=== PATIENT | male | born 1940 | race Caucasian/White ===

== ENCOUNTER → 2017-02-26 | Outpatient (CLI) | payer OTHER ==
[~2017-02-26] MED LIST: ASPIPOW PO; FERR325T5 PO; HYDR25TA4 PO; NUTR-1197 PO; PANT1TAB48 PO
== END | disposition home or self-care (01) ==
LOC: C.LABSPEC 13:59
PROVIDERS: ATTEND Hospitalist
DX: C18.9 Malignant neoplasm of colon, unspecified (principal)

== ENCOUNTER → 2017-11-03 | Outpatient (CLI) | payer OTHER ==
[~2017-11-03] MED LIST changes: +PANT1TAB3 PO; -PANT1TAB48 PO
--- NOTE | 2017-11-04 07:59 | DIAGNOSTIC IMAGING REPORT ---
PET/CT CLINICAL HISTORY: COLORECTAL CANCER TECHNIQUE: A PET/CT was performed from the skull base through the upper thighs following intravenous injection of 12.69 mCi of F 18 FDG IV. The injection was performed at 10:43 AM on November 03, 2017 and imaging began at 12:21 PM on November 03, 2017. Unenhanced CT was performed for attenuation correction purposes and anatomic localization. COMPARISON STUDY: PET/CT March 05, 2017. FINDINGS: Head and neck: No abnormal FDG uptake is identified within the neck. There is no cervical lymphadenopathy. Chest: There is no thoracic lymphadenopathy. A 2.6 cm lesion within the superior segment of the right lower lobe shown on image 88 has slightly increased in size since PET/CT of March 05, 2017. FDG uptake has increased with an SUV max of 3. This is predominantly groundglass with suspected solid component although is difficult to assess given respiratory motion artifact. A few small nodules within the posterior segment of the right upper lobe measuring up to 7 mm are unchanged. These remain indeterminate. There are no new pulmonary nodules. Dilatation of the ascending aorta, measuring 4.6 cm is unchanged. Abdomen and Pelvis: A bowel containing right lower quadrant hernia is noted. Note is again made of an FDG avid nodule within the superior aspect of the hernia that measures 2.6 x 1.9 cm. It previously measured approximately 2.7 x 2 cm on exam of March 05, 2017. The SUV max is now 8.2. It previously measured 15.8. An FDG avid mass posterior to the left aspect of the bladder shown on axial image 219 measures 3.9 x 2.7 cm. It previously measured 3.9 x 2.6 cm. The SUV max is now 20. It previously measured 19. A third lesion measuring 3.5 x 3.1 cm located posterior to the right upper aspect of the bladder is noted. It previously measured 3.5 x 3.4 cm. The SUV max of this lesion is 15.3. It previously measured 22.2. No new lesions are identified on this exam. Prostate is moderately enlarged. A left adrenal adenoma is again noted. There is sigmoid diverticulosis without evidence for acute diverticulitis. Musculoskeletal: No suspicious skeletal uptake is identified. IMPRESSION: 1. Three lower abdominal and pelvic FDG avid masses which were shown on PET/CT of March 05, 2017. The findings suggest a mild partial treatment response with persistent but decreased FDG uptake within 2 of the lesions and no change in marked FDG uptake within a third lesion. No significant change in size. These favor peritoneal implants given the history of colon cancer. 2. Slight increase in size and FDG avidity of a groundglass and solid lesion within the superior segment of the right lower lobe. This favors a primary lung malignancy, likely within the adenocarcinoma spectrum. Metastatic disease could appear similar although is considered less likely. 3. No change in a few small nodules within the posterior segment of the right upper lobe which remain indeterminate. Electronically signed by: Roverto Rodriguez M.D. 11/04/2017 7:58 AM Dictated Date/Time: 11/04/2017 7:10 AM
== END | disposition home or self-care (01) ==
LOC: C.PET 10:12
PROVIDERS: ATTEND Colon & Rectal Surgery
DX: C18.9 Malignant neoplasm of colon, unspecified (principal)

== ENCOUNTER 2020-03-06 12:57 | Inpatient (IN) ==
[2020-03-06] MEDS ORDERED: MAGNESIUM SULFATE 1GM / D5W BAG IV ONE (13:56)
[2020-03-06] MEDS ORDERED: LACTATED RINGER'S 1,000 ML IV ONE ×3 (14:01→15:58)
[2020-03-06] MEDS ORDERED: MAGNESIUM SULFATE / D5W 1 GM/100 ML BAG IV STA (14:03)
[2020-03-06 14:09] LABS: Hematocrit (blood only) 24.3 % (42-52); Hemoglobin 8.1 g/dL (14.0-18.0); Mean Corpuscular Hemoglobin 28.4 pg (25-34); Mean Corpuscular Hgb Conc 33.3 g/dL (32-36); Mean Corpuscular Volume 85.3 fL (80-100); Mean Platelet Volume 9.8 fL (7.4-10.4); Platelet Count 266 K/uL (130-400); RDW Coefficient of Variation 17.2 % (11.5-14.5); RDW Standard Deviation 53.1 fL (36.4-46.3); Red Blood Count 2.85 M/uL (4.7-6.1); White Blood Count 21.22 K/uL (4.8-10.8)
[2020-03-06] MEDS ORDERED: MAGNESIUM SULFATE / D5W 1 GM/100 ML BAG IV SCH (14:09)
--- NOTE | 2020-03-06 14:18 | XRay Report ---
XR chest 1V portable HISTORY: 80 years-old Male weakness, afib acute weakness with atrial fibrillation COMPARISON: Chest radiograph 12/02/2013 TECHNIQUE: Portable upright AP view of the chest FINDINGS: Cardiac silhouette is mildly enlarged. Mild chronic interstitial coarsening. Right pectoral Infuse-a- Port catheter distal tip terminates in the superior aspect of the right atrium. No pneumothorax, pleu ral effusion, overt pulmonary edema or airspace consolidation typical for pneumonia. Degenerative wicho nges of the shoulders and spine. IMPRESSION: Cardiomegaly without acute process. ACT 112: Negative or not required by law. The above report was generated using voice recognition software. It may contain grammatical, syntax o r spelling errors. Electronically signed by: Norbert Huddleston M.D. 03/06/2020 2:16 PM
[2020-03-06 14:20] LABS: INR 1.2 (0.9-1.1); Prothrombin Time 12.3 Seconds (9.0-12.0)
[2020-03-06] MEDS ORDERED: CEFEPIME 2,000 MG/20 ML VIAL IV STA (14:23)
[2020-03-06 14:33] LABS: Basophils # (auto) 0.01 K/uL (0-0.2); Immature Granulocytes # (auto) 0.09 K/uL (0.00-0.02); Immature Granulocytes % (auto) 0.4 %; Lymphocytes # (auto) 0.34 K/uL (1.2-3.4); Lymphocytes % (auto) 1.6 %; Monocytes # (auto) 0.56 K/uL (0.11-0.59); Monocytes % (auto) 2.6 %; Neutrophils # (auto) 20.22 K/uL (1.4-6.5); Neutrophils % (auto) 95.4 %
--- NOTE | 2020-03-06 14:35 | CT Scan Report ---
CT head/brain wo con CT DOSE: 614.27 mGy.cm HISTORY: Mental status change weakness TECHNIQUE: Multiaxial CT images of the head were performed without the use of intravenous contrast. A dose lowering technique was utilized adhering to the principles of ALARA. Comparison: 10/09/2013 Findings: The paranasal sinuses and mastoid air cells are clear. The calvarium and skull base are int act. The ventricles and sulci are within normal limits. There is no mass, hematoma, midline shift, or acute infarct. Impression: No acute intracranial abnormality. ACT 112: Negative or not required by law. The above report was generated using voice recognition software. It may contain grammatical, syntax or spelling errors. Electronically signed by: Vince Xiong M.D. 03/06/2020 2:34 PM
[2020-03-06 14:39] LABS: Alanine Aminotransferase 31 U/L (12-78); Albumin Globulin Ratio 0.4 (0.9-2); Albumin Level 1.9 gm/dl (3.4-5.0); Alkaline Phosphatase 203 U/L (45-117); Aspartate Aminotransferase 36 U/L (15-37); BUN Creatinine Ratio 35.5 (10-20); Bilirubin,Total 0.4 mg/dl (0.2-1); Blood Urea Nitrogen 96 mg/dl (7-18); Calcium 8.1 mg/dl (8.5-10.1); Carbon Dioxide 24 mmol/L (21-32); Chloride 99 mmol/L (98-107); Est GFR (African American) 24.4; Est GFR (Non-African American) 21.1; Globulin 4.7 gm/dl (2.5-4.0); Glucose 167 mg/dl (70-99); Potassium 2.5 mmol/L (3.5-5.1); Sodium 135 mmol/L (136-145); Thyroid Stimulating Hormone 0.957 uIu/ml (0.300-4.500); Total Protein 6.6 gm/dl (6.4-8.2); Troponin I 0.044 ng/ml (0-0.045)
[2020-03-06] MEDS ORDERED: POTASSIUM CHLORIDE / WTR 20 MEQ/100 ML PLCT IV ONE ×2 (14:41→16:35)
--- NOTE | 2020-03-06 14:58 | Emergency Department Note ---
Impression & Plan Severe sepsis, BRYAN (acute kidney injury), Hypokalemia, Atrial fibrillation with RVR, Acute UTI, Acute urinary retention ED Provider Note Provider: Berry Benitez MD DATE OF SERVICE: 03/06/2020 CHIEF COMPLAINT: Weakness HISTORY OF PRESENT ILLNESS: Patient is a 80-year-old gentleman with a past medical history of metastatic colon cancer, prediabetes, hypertension presenting today from home via ambulance. Evidently the patient's been not doing well since last radiation treatment in November and has had some decreased intake. Some shivers and extreme weakness unable to get a bed today and they called her doctor. Called 911 and brought here. Patient upon evaluation is noted to be in rapid atrial fibrillation. Denies loss of conscious but sick for the last day or 2 has had severe shivers. Denies significant pain at this time. Denies shortness of breath. Patient's blood pressure is somewhat low on initial evaluation the patient states if he sits up he feels weak and lightheaded. No falls reported. Denies vomiting at this time. The notes from the [employer] system indicate question of seizure activity although patient states this is more of shivers from his recollection. REVIEW OF SYSTEMS: A total of 10 review of systems was obtained and negative except as stated above in the HPI. 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 NECK: Trachea midline. Supple. ENT: Mucous membranes pink and moist. LUNGS: Airway patent. No retractions. Breath sounds clear HEART: Irregular tachycardic rate and rhythm. No chest wall tenderness with a right upper chest wall port in place ABDOMEN: Soft and non-tender, without guarding or rebound there is some right sided abdominal hernia appreciated without tenderness SKIN: Acyanotic, warm, dry, without rashes EXTREMITIES: Without significant swelling of the lower extremities or acute deformity. NEUROLOGICAL: No focal deficits. No aphasia. No facial droop or slurred speech. EKs beats per minute atrial fibrillation with rapid ventricular spots. No acute ST segment elevation or significant depressions appreciated. Normal axis. CONTINUOUS CARDIAC MONITORING: was ordered and showed a heart rate of 120-140s bpm in atrial fibrillation Patient's laboratory studies and imaging reviewed. Differential includes Infection, dehydration, metabolic abnormality, hypo/hyperglycemia, electrolyte disturbance, anemia, hypoxia, cardiac sources, intracerebral event, toxicologic, neurologic, as well as other pathologies. IMPRESSION/MEDICAL DECISION MAKING: Patient presents complaint of weakness. Called the room due to hypotension and rapid A. fib. Fluid bolus given as well as magnesium. Hypokalemia noted on laboratory studies and give additional through his port site. Given cefepime here with leukocytosis and concerns for sepsis. No fever history reported. No trauma reported. Evidence of shaking today and several weeks ago seems less likely be seizure but given initially unclear history of CT head was completed. CT abdomen pelvis completed significant abdominal history history of colon cancer is unclear etiology of infection. Lower suspicion is acutely relents coronavirus at this time and he does not have significant respiratory symptoms. Patient denies significant symptoms other than some weakness when trying to move and thus did not elect to give an unknown period of atrial fibrillation for emergent electrical cardioversion initially. Lactate is elevated as well as procalcitonin. Blood cultures have been obtained. additionally relays a history of C. difficile colitis given this and his history of intra-abdominal processes given some IV Flagyl here. Lower suspicion for acute C. difficile infection at this time. Patient does not appear meningitic. Urinalysis is ordered and highly concerning for infection. CT abdomen pelvis shows evidence of hydronephrosis and concern for urinary retention, Fernandes was placed. Blood pressure has been improving with some IV fluids here. Again did receive IV potassium replacement. Considered esmolol for some rate control but given recurrent issues with borderline blood pressures this was held. Urinalysis appears positive. Again did receive broad coverage cefepime and Flagyl at this point. Defer additional antibiotics to the inpa tient team. CT the abdomen pelvis showed some retained stool in the colon but does not have symptomatology consistent with an obstructive process. Has had some recurrent diarrhea. Discussed with family also findings of possible some liver metastatic disease. Given his critical nature discussed with the hospitalist team for further inpatient care. Patient again while having borderline blood pressures do not feel this time required electrical cardioversion and was resting comfortably in bed. DIAGNOSIS: Weakness, atrial fibrillation rapid ventricular response, sepsis, urinary retention, acute kidney injury, hypokalemia, acute UTI DISPOSITION: Hospitalist will evaluate Critical Care I have personally spent 75 minutes of critical care time in the direct managem ent of this patient. This includes bedside care, interpretation of diagnostic studies, and testing, discussion with consultants, patient, and family members, and other required patient management activities. These 75 minutes is in excess of all separately billable procedures. Past Med/Surg History Medical History Colon cancer HTN (hypertension) Radiation proctitis Surgical History History of appendectomy (Resolved) History of colon resection History of tonsillectomy and adenoidectomy Ileostomy status history of ileostomy s/p reversal Family History Other Family history non-contributory Social History Smoking Status: Never smoker Hx Alcohol Use: No Feels Safe at Home: Yes Allergies Allergies Allergy/AdvReac Type Severity Reaction Status Date / Time ragweed pollen Allergy Intermediate SNEEZING Unverified 03/06/20 14:45 plum Allergy Mild VERTIGO Verified 03/06/20 14:45 (RED PLUMS) amoxicillin Allergy Unknown HEADACHES, Unverified 03/06/20 14:45 FEELS LIGHT HEADED soy Allergy Unknown RASH Unverified 03/06/20 14:45 epinephrine AdvReac Unknown "DROPS BP Verified 03/06/20 14:45 LIKE A ROCK" Food Additives Allergy Unknown Nitrites - Uncoded 03/06/20 14:45 cardiac arrhythmias Pesticides Allergy Unknown RASH Uncoded 03/06/20 14:45 Home Meds Home Medications Medication Instructions Recorded Confirmed calcium carbonate 600 mg PO BID 03/06/20 03/06/20 hydrochlorothiazide 25 mg PO DAILY 03/06/20 03/06/20 potassium chloride [Klor-Con M20] 20 meq PO BID 03/06/20 03/06/20 Results & Data (ED) Vital Signs Vital Signs - 24 hr 03/06/20 13:49 03/06/20 13:51 03/06/20 13:52 Temperature Temperature Source Pulse Rate 153 H 150 H Pulse Rate from SpO2 Sensor 160 H 139 H 151 H Pulse Rhythm Respiratory Rate 14 Respiratory Effort / Characteristics Respiratory Pattern Blood Pressure 77/62 L 62/37 L 91/75 L Blood Pressure Mean 65 39 78 Pulse Oximetry 96 98 98 Oxygen Delivery Method Sepsis Recent Fever Within 48 Hours Sepsis New/Unexplained Change in Mental Status Sepsis Action Taken by Nursing 03/06/20 13:54 03/06/20 13:55 03/06/20 13:58 Temperature Temperature Source Pulse Rate 153 H 142 H 163 H Pulse Rate from SpO2 Sensor 157 H 145 H 161 H Pulse Rhythm Respiratory Rate 22 21 20 Respiratory Effort / Characteristics Respiratory Pattern Blood Pressure 118/98 86/61 L 96/61 L Blood Pressure Mean 105 69 77 Pulse Oximetry 97 96 96 Oxygen Delivery Method Sepsis Recent Fever Within 48 Hours Sepsis New/Unexplained Change in Mental Status Sepsis Action Taken by Nursing 03/06/20 14:00 03/06/20 14:05 03/06/20 14:10 Temperature 37.4 C Temperature Source Oral Pulse Rate 155 H 149 H 149 H Pulse Rate from SpO2 Sensor Pulse Rhythm Irregular Respiratory Rate 14 18 12 Respiratory Effort / Characteristics Spontaneous Respiratory Pattern Regular Blood Pressure 97/76 L 88/68 L 93/64 L Blood Pressure Mean 91 76 70 Pulse Oximetry 96 96 95 Oxygen Delivery Method Room Air Sepsis Recent Fever Within 48 Hours No Sepsis New/Unexplained Change in Mental Status No Sepsis Action Taken by Nursing No Action Required 03/06/20 14:15 03/06/20 14:20 03/06/20 14:39 Temperature Temperature Source Pulse Rate 150 H 160 H 160 H Pulse Rate from SpO2 Sensor 134 H Pulse Rhythm Respiratory Rate 20 20 Respiratory Effort / Characteristics Respiratory Pattern Blood Pressure 83/58 L 86/60 L 113/68 Blood Pressure Mean 61 65 69 Pulse Oximetry 96 98 95 Oxygen Delivery Method Sepsis Recent Fever Within 48 Hours Sepsis New/Unexplained Change in Mental Status Sepsis Action Taken by Nursing 03/06/20 14:40 03/06/20 14:45 03/06/20 14:50 Temperature Temperature Source Pulse Rate 149 H 152 H 136 H Pulse Rate from SpO2 Sensor 148 H 144 H 150 H Pulse Rhythm Respiratory Rate 20 20 Respiratory Effort / Characteristics Respiratory Pattern Blood Pressure 104/72 92/64 L 74/45 L Blood Pressure Mean 84 66 52 Pulse Oximetry 96 96 95 Oxygen Delivery Method Sepsis Recent Fever Within 48 Hours Sepsis New/Unexplained Change in Mental Status Sepsis Action Taken by Nursing 03/06/20 14:55 03/06/20 15:00 03/06/20 15:05 Temperature Temperature Source Pulse Rate 149 H 138 H 137 H Pulse Rate from SpO2 Sensor 149 H 128 H 146 H Pulse Rhythm Respiratory Rate 15 16 17 Respiratory Effort / Characteristics Respiratory Pattern Blood Pressure 96/71 L 94/68 L 93/71 L Blood Pressure Mean 81 77 81 Pulse Oximetry 96 95 95 Oxygen Delivery Method Sepsis Recent Fever Within 48 Hours Sepsis New/Unexplained Change in Mental Status Sepsis Action Taken by Nursing 03/06/20 15:21 03/06/20 15:26 03/06/20 15:30 Temperature Temperature Source Pulse Rate 140 H 162 H 140 H Pulse Rate from SpO2 Sensor Pulse Rhythm Respiratory Rate 13 17 15 Respiratory Effort / Characteristics Respiratory Pattern Blood Pressure 92/69 L 84/68 L 89/73 L Blood Pressure Mean 75 75 77 Pulse Oximetry 97 96 96 Oxygen Delivery Method Sepsis Recent Fever Within 48 Hours Sepsis New/Unexplained Change in Mental Status Sepsis Action Taken by Nursing 03/06/20 15:35 03/06/20 15:40 03/06/20 15:45 Temperature Temperature Source Pulse Rate 142 H 134 H 124 H Pulse Rate from SpO2 Sensor Pulse Rhythm Respiratory Rate 21 12 15 Respiratory Effort / Characteristics Respiratory Pattern Blood Pressure 85/67 L 103/69 68/52 L Blood Pressure Mean 79 77 59 Pulse Oximetry 98 97 97 Oxygen Delivery Method Sepsis Recent Fever Within 48 Hours Sepsis New/Unexplained Change in Mental Status Sepsis Action Taken by Nursing 03/06/20 15:47 03/06/20 16:03 03/06/20 16:13 Temperature Temperature Source Pulse Rate 137 H 132 H 133 H Pulse Rate from SpO2 Sensor Pulse Rhythm Respiratory Rate 16 14 18 Respiratory Effort / Characteristics Respiratory Pattern Blood Pressure 76/63 L 72/60 L 89/70 L Blood Pressure Mean 68 68 77 Pulse Oximetry 97 98 97 Oxygen Delivery Method Sepsis Recent Fever Within 48 Hours Sepsis New/Unexplained Change in Mental Status Sepsis Action Taken by Nursing 03/06/20 16:19 03/06/20 16:20 03/06/20 16:30 Temperature Temperature Source Pulse Rate 135 H 130 H 140 H Pulse Rate from SpO2 Sensor Pulse Rhythm Respiratory Rate 12 14 12 Respiratory Effort / Characteristics Respiratory Pattern Blood Pressure 96/64 L 94/72 L 88/68 L Blood Pressure Mean 65 79 73 Pulse Oximetry 97 98 97 Oxygen Delivery Method Sepsis Recent Fever Within 48 Hours Sepsis New/Unexplained Change in Mental Status Sepsis Action Taken by Nursing 03/06/20 16:40 03/06/20 16:50 03/06/20 17:00 Temperature Temperature Source Pulse Rate 142 H 128 H 141 H Pulse Rate from SpO2 Sensor Pulse Rhythm Respiratory Rate 12 15 16 Respiratory Effort / Characteristics Respiratory Pattern Blood Pressure 89/70 L 97/69 L 91/74 L Blood Pressure Mean 73 79 79 Pulse Oximetry 97 98 Oxygen Delivery Method Sepsis Recent Fever Within 48 Hours Sepsis New/Unexplained Change in Mental Status Sepsis Action Taken by Nursing 03/06/20 17:10 03/06/20 17:20 03/06/20 17:23 Temperature Temperature Source Pulse Rate 139 H 132 H 142 H Pulse Rate from SpO2 Sensor Pulse Rhythm Respiratory Rate 20 20 20 Respiratory Effort / Characteristics Respiratory Pattern Blood Pressure 89/70 L 97/75 L 97/75 L Blood Pressure Mean 79 89 89 Pulse Oximetry Oxygen Delivery Method Sepsis Recent Fever Within 48 Hours Sepsis New/Unexplained Change in Mental Status Sepsis Action Taken by Nursing 03/06/20 17:30 03/06/20 17:40 Temperature Temperature Source Pulse Rate 138 H 138 H Pulse Rate from SpO2 Sensor Pulse Rhythm Respiratory Rate 12 18 Respiratory Effort / Characteristics Respiratory Pattern Blood Pressure 106/63 101/77 Blood Pressure Mean 74 85 Pulse Oximetry Oxygen Delivery Method Sepsis Recent Fever Within 48 Hours Sepsis New/Unexplained Change in Mental Status Sepsis Action Taken by Nursing Laboratory Data Result diagrams: 03/06/20 13:50 03/06/20 17:36 Lab Results 03/06/20 03/06/20 03/06/20 Range/Units 13:50 13:50 13:50 WBC 21.22 H (4.8-10.8) K/uL RBC 2.85 L (4.7-6.1) M/uL Hgb 8.1 L (14.0-18.0) g/dL Hct 24.3 L (42-52) % MCV 85.3 (80-100) fL MCH 28.4 (25-34) pg MCHC 33.3 (32-36) g/dL RDW Std Deviation 53.1 H (36.4-46.3) fL RDW Coeff of Shanita 17.2 H (11.5-14.5) % Plt Count 266 (130-400) K/uL MPV 9.8 (7.4-10.4) fL Immature Gran % (Auto) 0.4 % Neut % (Auto) 95.4 % Lymph % (Auto) 1.6 % [place] % (Auto) 2.6 % Eos % (Auto) 0.0 % Baso % (Auto) 0.0 % Neut # (Auto) 20.22 H (1.4-6.5) K/uL Lymph # (Auto) 0.34 L (1.2-3.4) K/uL [place] # (Auto) 0.56 (0.11-0.59) K/uL Eos # (Auto) 0.00 (0-0.5) K/uL Baso # (Auto) 0.01 (0-0.2) K/uL Immature Gran # (Auto) 0.09 H (0.00-0.02) K/uL PT 12.3 H (9.0-12.0) Seconds INR 1.2 H (0.9-1.1) Sodium 135 L (136-145) mmol/L Potassium 2.5 L* (3.5-5.1) mmol/L Chloride 99 (98-107) mmol/L Carbon Dioxide 24 (21-32) mmol/L Anion Gap 11.0 (3-11) BUN 96 H (7-18) mg/dl Creatinine 2.71 H (0.6-1.4) mg/dl Est Cr Clr Drug Dosing Not Reportable Est GFR ( Amer) 24.4 Est GFR (Non-Af Amer) 21.1 BUN/Creatinine Ratio 35.5 H (10-20) Glucose 167 H (70-99) mg/dl Lactate (0.4-2.0) mmol/L Calcium 8.1 L (8.5-10.1) mg/dl Magnesium 2.0 (1.8-2.4) mg/dl Total Bilirubin 0.4 (0.2-1) mg/dl AST 36 (15-37) U/L ALT 31 (12-78) U/L Alkaline Phosphatase 203 H (45-117) U/L Troponin I 0.044 (0-0.045) ng/ml Total Protein 6.6 (6.4-8.2) gm/dl Albumin 1.9 L (3.4-5.0) gm/dl Globulin 4.7 H (2.5-4.0) gm/dl Albumin/Globulin Ratio 0.4 L (0.9-2) Procalcitonin (0-0.5) ng/ml TSH 0.957 (0.300-4.500) uIu/ml Urine Color Urine Appearance (Clear) Urine pH (4.5-7.5) Ur Specific Callahan (1.000-1.030) Urine Protein (Negative) Urine Glucose (UA) (Negative) Urine Ketones (Negative) Urine Blood (Negative) Urine Nitrite (Negative) Urine Bilirubin (Negative) Urine Urobilinogen (Negative) Ur Leukocyte Esterase (Negative) Urine WBC (Auto) (0-5) /hpf Urine RBC (Auto) (0-4) /hpf U Hyaline Cast (Auto) (0-5) /lpf U Epithel Cells (Auto) (0-5) /lpf Urine Bacteria (Auto) (Negative) 03/06/20 03/06/20 03/06/20 Range/Units 13:50 14:06 15:35 WBC (4.8-10.8) K/uL RBC (4.7-6.1) M/uL Hgb (14.0-18.0) g/dL Hct (42-52) % MCV (80-100) fL MCH (25-34) pg MCHC (32-36) g/dL RDW Std Deviation (36.4-46.3) fL RDW Coeff of Shanita (11.5-14.5) % Plt Count (130-400) K/uL MPV (7.4-10.4) fL Immature Gran % (Auto) % Neut % (Auto) % Lymph % (Auto) % [place] % (Auto) % Eos % (Auto) % Baso % (Auto) % Neut # (Auto) (1.4-6.5) K/uL Lymph # (Auto) (1.2-3.4) K/uL [place] # (Auto) (0.11-0.59) K/uL Eos # (Auto) (0-0.5) K/uL Baso # (Auto) (0-0.2) K/uL Immature Gran # (Auto) (0.00-0.02) K/uL PT (9.0-12.0) Seconds INR (0.9-1.1) Sodium (136-145) mmol/L Potassium (3.5-5.1) mmol/L Chloride (98-107) mmol/L Carbon Dioxide (21-32) mmol/L Anion Gap (3-11) BUN (7-18) mg/dl Creatinine (0.6-1.4) mg/dl Est Cr Clr Drug Dosing Est GFR ( Amer) Est GFR (Non-Af Amer) BUN/Creatinine Ratio (10-20) Glucose (70-99) mg/dl Lactate 4.8 H* (0.4-2.0) mmol/L Calcium (8.5-10.1) mg/dl Magnesium (1.8-2.4) mg/dl Total Bilirubin (0.2-1) mg/dl AST (15-37) U/L ALT (12-78) U/L Alkaline Phosphatase (45-117) U/L Troponin I (0-0.045) ng/ml Total Protein (6.4-8.2) gm/dl Albumin (3.4-5.0) gm/dl Globulin (2.5-4.0) gm/dl Albumin/Globulin Ratio (0.9-2) Procalcitonin 31.57 H (0-0.5) ng/ml TSH (0.300-4.500) uIu/ml Urine Color Yellow Urine Appearance Cloudy A (Clear) Urine pH 5.0 (4.5-7.5) Ur Specific [place] 1.015 (1.000-1.030) Urine Protein Trace H (Negative) Urine Glucose (UA) Negative (Negative) Urine Ketones Negative (Negative) Urine Blood 1+ H (Negative) Urine Nitrite Negative (Negative) Urine Bilirubin Negative (Negative) Urine Urobilinogen Negative (Negative) Ur Leukocyte Esterase 3+ H (Negative) Urine WBC (Auto) >30 H (0-5) /hpf Urine RBC (Auto) 0-4 (0-4) /hpf U Hyaline Cast (Auto) 0 (0-5) /lpf U Epithel Cells (Auto) 0-5 (0-5) /lpf Urine Bacteria (Auto) 1+ H (Negative) 03/06/20 03/06/20 Range/Units 17:10 17:36 WBC (4.8-10.8) K/uL RBC (4.7-6.1) M/uL Hgb (14.0-18.0) g/dL Hct (42-52) % MCV (80-100) fL MCH (25-34) pg MCHC (32-36) g/dL RDW Std Deviation (36.4-46.3) fL RDW Coeff of Shanita (11.5-14.5) % Plt Count (130-400) K/uL MPV (7.4-10.4) fL Immature Gran % (Auto) % Neut % (Auto) % Lymph % (Auto) % [place] % (Auto) % Eos % (Auto) % Baso % (Auto) % Neut # (Auto) (1.4-6.5) K/uL Lymph # (Auto) (1.2-3.4) K/uL [place] # (Auto) (0.11-0.59) K/uL Eos # (Auto) (0-0.5) K/uL Baso # (Auto) (0-0.2) K/uL Immature Gran # (Auto) (0.00-0.02) K/uL PT (9.0-12.0) Seconds INR (0.9-1.1) Sodium (136-145) mmol/L Potassium 2.9 L D (3.5-5.1) mmol/L Chloride (98-107) mmol/L Carbon Dioxide (21-32) mmol/L Anion Gap (3-11) BUN (7-18) mg/dl Creatinine (0.6-1.4) mg/dl Est Cr Clr Drug Dosing Est GFR ( Amer) Est GFR (Non-Af Amer) BUN/Creatinine Ratio (10-20) Glucose (70-99) mg/dl Lactate 2.4 H* (0.4-2.0) mmol/L Calcium (8.5-10.1) mg/dl Magnesium (1.8-2.4) mg/dl Total Bilirubin (0.2-1) mg/dl AST (15-37) U/L ALT (12-78) U/L Alkaline Phosphatase (45-117) U/L Troponin I (0-0.045) ng/ml Total Protein (6.4-8.2) gm/dl Albumin (3.4-5.0) gm/dl Globulin (2.5-4.0) gm/dl Albumin/Globulin Ratio (0.9-2) Procalcitonin (0-0.5) ng/ml TSH (0.300-4.500) uIu/ml Urine Color Urine Appearance (Clear) Urine pH (4.5-7.5) Ur Specific [place] (1.000-1.030) Urine Protein (Negative) Urine Glucose (UA) (Negative) Urine Ketones (Negative) Urine Blood (Negative) Urine Nitrite (Negative) Urine Bilirubin (Negative) Urine Urobilinogen (Negative) Ur Leukocyte Esterase (Negative) Urine WBC (Auto) (0-5) /hpf Urine RBC (Auto) (0-4) /hpf U Hyaline Cast (Auto) (0-5) /lpf U Epithel Cells (Auto) (0-5) /lpf Urine Bacteria (Auto) (Negative) Administered Medications Esmolol HCl (Brevibloc) 2,500 mg in 250 mls @ 29.4 mls/hr IV .Q8H31M [facility]; Protocol Stop: 04/05/20 15:59 Last Admin: 03/06/20 17:12 Dose: Not Given Documented by: [id number] Discontinued Medications Esmolol HCl (Brevibloc Bolus From Bag) 49 mg IV ONE ONE Stop: 03/06/20 15:56 Last Admin: 03/06/20 17:11 Dose: Not Given Documented by: [id number] Lactated Ringer's (Lr) 1,000 mls @ 999 mls/hr IV .Q1H1M ONE Stop: 03/06/20 15:01 Last Infusion: 03/06/20 15:41 Dose: 0 mls/hr Documented by: [id number] Admin: 03/06/20 14:40 Dose: 999 mls/hr Documented by: [id number] Magnesium Sulfate/Dextrose (Magnesium Sulfate / D5w) 1 gm in 100 mls @ 100 mls/hr IV NOW STA Stop: 03/06/20 15:02 Last Admin: 03/06/20 14:44 Dose: Not Given Documented by: [id number] Magnesium Sulfate/Dextrose (Magnesium Sulfate / D5w) 1 gm in 100 mls @ 400 mls/hr IV Q15M [facility] Stop: 03/06/20 14:23 Last Admin: 03/06/20 14:19 Dose: Not Given Documented by: [id number] Cefepime HCl (Maxipime) 2,000 mg in 20 mls @ 5 mls/min IV NOW STA; Protocol Stop: 03/06/20 14:26 Last Admin: 03/06/20 14:44 Dose: 5 mls/min Documented by: [id number] Potassium Chloride (K Satya / Wtr) 20 meq in 100 mls @ 50 mls/hr IV ONE ONE Stop: 03/06/20 16:40 Last Infusion: 03/06/20 16:52 Dose: 0 mls/hr Documented by: [id number] Admin: 03/06/20 14:52 Dose: 50 mls/hr Documented by: [id number] Lactated Ringer's (Lr) 1,000 mls @ 999 mls/hr IV .Q1H1M ONE Stop: 03/06/20 15:44 Last Infusion: 03/06/20 16:36 Dose: 0 mls/hr Documented by: [id number] Admin: 03/06/20 15:35 Dose: 999 mls/hr Documented by: [id number] Metronidazole (Flagyl) 500 mg in 100 mls @ 100 mls/hr IV NOW STA Stop: 03/06/20 16:06 Last Infusion: 03/06/20 17:25 Dose: 0 mls/hr Documented by: [id number] Admin: 03/06/20 16:25 Dose: 100 mls/hr Documented by: [id number] Lactated Ringer's (Lr) 1,000 mls @ 999 mls/hr IV .Q1H1M ONE Stop: 03/06/20 16:58 Last Infusion: 03/06/20 17:26 Dose: 0 mls/hr Documented by: [id number] Admin: 03/06/20 16:25 Dose: 999 mls/hr Documented by: [id number] Potassium Chloride (K Satya / Wtr) 20 meq in 100 mls @ 50 mls/hr IV ONE ONE Stop: 03/06/20 18:34 Last Admin: 03/06/20 17:55 Dose: 50 mls/hr Documented by: [id number] Magnesium Sulfate/Dextrose (Magnesium Sulfate / D5w) Confirm Administered Dose 1 gm IV .STK-MED ONE Stop: 03/06/20 13:57 Last Admin: 03/06/20 14:02 Dose: 1 gm Documented by: [id number] Potassium Chloride (Elizabeth Ciel Elix) 40 meq PO ONE ONE Stop: 03/06/20 17:20 Last Admin: 03/06/20 17:49 Dose: 40 meq Documented by: [id number] Discharge Plan Visit Data Chief Complaint: Weakness ED Provider: Berry Benitez ED Midlevel Provider: Ttae Vargas Discharge Problem: Severe sepsis, BRYAN (acute kidney injury), Hypokalemia, Atrial fibrillation with RVR, Acute UTI, Acute urinary retention Patient Disposition: Admitted As Inpatient Condition: Critical
[2020-03-06] MEDS ORDERED: metroNIDAZOLE 500 MG/100 ML BAG IV STA (15:07)
--- NOTE | 2020-03-06 15:31 | CT Scan Report ---
CT SCAN OF THE ABDOMEN AND PELVIS WITHOUT CONTRAST CLINICAL HISTORY: Fever, tachycardia, history of carcinoma. COMPARISON STUDY: PET CT scan performed October 2017 TECHNIQUE: CT scan of the abdomen and pelvis was performed from the lung bases to the proximal femurs . Images are reviewed in the axial, sagittal, and coronal planes. IV contrast was not administered fo r this examination. A dose lowering technique was utilized adhering to the principles of ALARA. CT DOSE: 1071.76 mGy.cm FINDINGS: Lower chest: There are dependent atelectatic changes. There is a trace right pleural effusion. Liver: Evaluation the liver is limited given the lack of intravenous contrast. There are subtle hypod ense hepatic lesions, suspicious for multifocal metastatic disease. Gallbladder: Unremarkable. Spleen: Normal in size and attenuation. Pancreas: Unremarkable. Adrenal glands: There is a 3 cm left nodule possibly representing an adenoma. Kidneys: There is moderate bilateral hydronephrosis and hydroureter. No obstructing calculi are visua lized. Bowel: There is a bowel containing right anterolateral abdominal wall hernia without current evidence of obstruction. There is a dilated stool-filled sigmoid colon. There is bowel wall thickening involv ing these rectum and lower sigmoid with loss of adjacent normal fat planes. There is increased soft t issue density within the perirectal regions. Neoplasm must be considered. Peritoneum: There is trace peritoneal fluid. There is no free intraperitoneal air. Vasculature: The abdominal aorta is normal in course and caliber. Adenopathy: Perirectal soft tissue could represent metastatic disease within adjacent lymph nodes. Pelvic viscera: The prostate is enlarged. The bladder is distended Skeletal structures: No destructive osseous lesions are seen. IMPRESSION: 1. Study significantly limited due to the lack of intravenous and oral contrast 2. Multiple hepatic masses suspicious for metastatic disease 3. Moderate bilateral hydronephrosis and hydroureter. No obstructing calculi identified 4. Prostatomegaly and distended urinary bladder 5. Prominent stool-filled sigmoid colon. Abnormal soft tissue at the level of the lower sigmoid/rectu m with perirectal soft tissue nodules. The findings are suspicious for neoplasm. This may be resultin g in a low grade colonic obstruction 6. Right anterolateral abdominal wall hernia containing bowel. There is no current evidence of obstru ction at this level. ACT 112: Negative or not required by law. Electronically signed by: Israel Estevez M.D. 03/06/2020 3:30 PM
[2020-03-06 15:45] LABS: Appearance Urine Cloudy (Clear); Bacteria Urine Automated 1+ (Negative); Bilirubin Urine Negative (Negative); Blood Urine 1+ (Negative); Color Urine Yellow; Epithelial Cell Urine Auto 0-5 /lpf (0-5); Glucose Urine UA Negative (Negative); Ketones Urine Negative (Negative); Leukocyte Esterase Urine 3+ (Negative); Nitrite Urine Negative (Negative); Protein Urine Trace (Negative); RBC Urine Automated 0-4 /hpf (0-4); Specific Gravity Urine 1.015 (1.000-1.030); Urobilinogen Urine Negative (Negative); WBC Urine Automated >30 /hpf (0-5)
[2020-03-06] MEDS ORDERED: STAT IV Infusion **Titration per Protocol STA (15:47)
[2020-03-06] MEDS ORDERED: ESMOLOL BOLUS FROM BAG IV ONE (15:55)
[2020-03-06 16:00] LABS: Cast Urine Automated 0 /lpf (0-5)
[2020-03-06] MEDS ORDERED: ESMOLOL / NSS 2,500 MG/250 ML BAG IV SCH (16:00)
--- NOTE | 2020-03-06 17:15 | Emergency Department Note ---
ED Visit Note This patient was seen in concert with Dr. Benitez and we discussed and agreed upon the history, physical, assessment, and plan. See attending's note for details. . Resident Activity Tracking Resident Involvement: Resident Care Provided Care Provided: Adult ED
[2020-03-06] MEDS ORDERED: POTASSIUM CHLORIDE 20 MEQ/15 ML UDC PO ONE (17:19)
--- NOTE | 2020-03-06 17:51 | Communication Note ---
Date of Service: March 06, 2020 HISTORY: Record reviewed. Patient interviewed and examined. Care coordinated with HANNAH Eastman, please refer to her documentation for complete history. Briefly, 80 YO male with history of colon cancer s/p resection, chemotherapy, radiation therapy with peritoneal recurrence, hypertension, prediabetes, and other problems as noted. Possible history of paroxysmal atrial fibrillation. Presented to ED with weakness, fever, chills. Experiencing loose stools. No cough / SOB. Fernandes catheter placed in ED with immediate urine output of ~ 2000 ml. Therapeutics in ED- LR x 3 L IV cefepime + metronidazole IV KCl (esmolol was ordered, but never started because of hypotension) EXAM: General- no acute distress Lungs- clear to auscultation; no respiratory distress Cardiovascular- irregularly irregular; tachycardic; auscultation limited but no murmur/palmer/rub appreciated; no JVD; 1+ pretibial edema; capillary refill < 2 sec Abdomen- quiet bowel sounds, soft, nontender; nontender hernia RLQ Rectal- prostate boggy, tender Extremities- no cyanosis; no calf tenderness Neuro- alert, oriented Skin- no rash, warm & dry DATA: 03/06/20 13:50 Mg 2.0 alk phos 203, other LFT's normal lactate 4.8 UA- + leukocyte esterase, WBC's, bacteria procalcitonin 31 Other lab studies as noted. Portable chest x-ray reviewed by the undersigned and formally interpreted by Radiology: CT head negative. CT abdomen + pelvis: hepatic lesions worrisome for mets normal-appearing gallbladder bilateral hydronephrosis prostatomegaly + distended bladder perirectal soft tissue nodules right anterolateral abdominal hernia without obstruction EKG performed at 1324 reviewed and demonstrated AF at 156 / minute, QTc 473 msec, slight ST depression laterally. ASSESSMENT AND PLAN: SEVERE SEPSIS WITH HYPOTENSION Presented with weakness, fever, rigors. AF with AVR. Systolic BP's initially in 60's - 70's. WBC 21,220. Lactate 4.8. Procal 31. Blood and urine cultures obtained in ED. Received broad-spectrum antibiotic therapy with cefepime and metronidazole. Received fluid resuscitation with 3 L LR with improvement of hemodynamics. Repeat lactate 2.4. Suspected source of sepsis = urinary tract (prostatitis and/or pyelonephritis); consider recurrent C diff. IV cefepime and daptomycin for urinary tract. IV metronidazole until C diff ruled out. History of apparent adverse reaction to PO vancomycin in the past, so it will not be ordered per 's request. ATRIAL FIBRILLATION WITH RVR Patient does not recall any prior AF, but family member believes that he has had PAF. K 2.5. Mg & TSH normal. Replace K. Consider anticoagulation if stools heme negative. ACUTE KIDNEY INJURY Baseline creatinine 1.1 11/22/19. Serum creatinine in ED 2.7. Acute kidney injury, multifactorial- obstruction, volume depletion, sepsis. Fernandes cath inserted for urinary retention. Consider Urology consult. Consult Nephrology if no improvement. Follow. HYPOKALEMIA K 2.5. On HCTZ and experiencing diarrhea. Hold HCTZ. Replace K. Follow. 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 Check stools for C diff. PREDIABETES Random glucose 167. Glycemic management per ICU protocol. ANEMIA Baseline Hgb 10.9 11/16/19. Hgb now 8.1. No gross GI bleeding. Check anemia work-up with next labs. Follow H/H. No need for transfusion at this time per current guidelines. RECURRENT METASTATIC COLON CA Has been followed by Dr. Nicole ([facility] in [place]) and [facility]. S/P resection, chemo, radiation therapy. Recurrent disease with peritoneal implants, possible lung met RLL, elevated CEA. Last seen by Dr. Nicole January; pt opted not to consider additional therapies. VTE PROPHYLAXIS SQ heparin. Consider IV heparin for AF. DNR STATUS Per patient's instructions. Please refer to NEL Dewey's documentation for discussion of other issues.
--- NOTE | 2020-03-06 18:26 | History & Physical Report ---
Date of Service March 06, 2020 Assessment & Plan (1) Severe sepsis: -Admit to ICU -Patient presenting from home with reports of profound generalized weakness and an episode of rigors this morning -On presentation: BP 77/62, HR 153, afebrile, lactic acid 4.8 -Likely urinary source, possible prostatitis -Received IV cefepime and IV flagyl in the ED, will continue with and add on daptomycin for gram-positive coverage -Given ongoing diarrhea, check C. difficile, stool culture and empiric IV Flagyl (patient declined to take p.o. Vanco due to side effects) -Received 3 L LR IV fluid resuscitation in the ED with improvement in BP, will continue with another liter at 250cc/hour and reevaluate -Lactic acid 4.8 -> 2.4, continue to trend -Follow blood and urine cultures (2) BRYAN (acute kidney injury): -Creatinine 2.7 (baseline 1.1) -Likely multifactorial due to postobstructive uropathy and sepsis -Fernandes placed in the ED -Continue IVF -Follow renal functions, avoiding nephrotoxic agents when able (3) Atrial fibrillation with RVR: -On presentation, patient in atrial fibrillation with RVR with rates in the 150s -New onset -Likely due to sepsis and/or hypokalemia -Trying to avoid beta-blockers and calcium channel blockers due to current hypotension -Correct potassium, continue treatments for sepsis -Hold on IV heparin for now due to anemia (4) Hypokalemia: -K+ 2.5, MG+ normal 2.0 -Replace, follow closely (5) Anemia: -Hgb 8.1 (10.9 11/2019) -No obvious signs of bleeding -Underlying malignancy likely contributing -Check Hemoccult stools -no indication for transfusion at this time (6) Colon cancer: -Follows with Dr. Maryanne Nicole with [facility] hematology/oncology in [place] and [facility] -History of resection, chemo, radiation; also with pelvic mets and possible RLL -10/2019 received re-irradiation and Xelda at [facility] - poorly tolerated -visit with Dr. Nicole 01/2020 patient declined further treatments -CT scan today suggesting metastatic hepatic disease (7) DVT prophylaxis: -SQ Heparin History of Present Illness Chief Complaint: Generalized weakness Primary Care Provider: Cristo Medellin MD 80-year-old male with PMH colon cancer, HTN, and other problems to below who presents the ED for evaluation of generalized weakness. Patient with history of recurrent colon cancer, follows with Dr. Maryanne Nicole with [facility] oncology in [place] and also [facility]. A few months ago, patient received Xeloda and reirradiation at [facility]. Patient reports a steady decline in his overall health over the past several weeks. He reports progressive generalized weakness to the point where he was unable to get out of bed this morning. He has had a 50 pound weight loss in the past 4 months. Patient reports appetite is poor. Reports chronic issues with ongoing diarrhea and bowel incontinence. This morning, patient had episode of chills and rigors. He did not take his temperature. Patient denies chest pain, palpitations, or shortness of breath. No cough or sputum production. Denies abdominal pain, nausea, vomiting. No lightheadedness, dizziness, diaphoresis, syncopal events. Patient denies any urinary symptoms. Upon arrival to the ED, patient was found to be hypotensive and in atrial fibrillation with RVR. Labs show WBC 21K, K+ 2.5, creatinine 2.7, lactic acid 4.8. Patient was found to have urinary retention and Fernandes catheter was placed draining [address] ABD/pelvis shows Multiple hepatic masses suspicious for metastatic disease, Moderate bilateral hydronephrosis and hydroureter, Abnormal soft tissue at the level of the lower sigmoid/rectum with perirectal soft tissue nodules. The findings are suspicious for neoplasm. Patient was given 3 L LR, IV cefepime, IV Flagyl, IV magnesium, IV potassium. Allergies Allergy/AdvReac Type Severity Reaction Status Date / Time ragweed pollen Allergy Intermediate SNEEZING Unverified 03/06/20 14:45 plum Allergy Mild VERTIGO Verified 03/06/20 14:45 (RED PLUMS) amoxicillin Allergy Unknown HEADACHES, Unverified 03/06/20 14:45 FEELS LIGHT HEADED soy Allergy Unknown RASH Unverified 03/06/20 14:45 epinephrine AdvReac Unknown "DROPS BP Verified 03/06/20 14:45 LIKE A ROCK" Food Additives Allergy Unknown Nitrites - Uncoded 03/06/20 14:45 cardiac arrhythmias Pesticides Allergy Unknown RASH Uncoded 03/06/20 14:45 Home Medications Home Medications Medication Instructions Recorded Confirmed Type calcium carbonate 600 mg PO BID 03/06/20 03/06/20 History hydrochlorothiazide 25 mg PO DAILY 03/06/20 03/06/20 History potassium chloride [Klor-Con M20] 20 meq PO BID 03/06/20 03/06/20 History Past Med/Surg History Medical History Colon cancer HTN (hypertension) Radiation proctitis Surgical History History of appendectomy (Resolved) History of colon resection History of tonsillectomy and adenoidectomy Ileostomy status history of ileostomy s/p reversal Family History Other Family history non-contributory Social History Smoking Status: Never smoker Hx Alcohol Use: No Feels Safe at Home: Yes Review of Systems Review of Systems: ROS per HPI, all other systems reviewed and negative Physical Exam Constitutional: WD/WN, vitals as above + ill appearing; no acute distress Eyes: PERRL, conjunctivae normal, anicteric sclerae ENMT: Ears: no external ear abnormality Nose: no external nose abnormality Mouth: + poor dentition Respiratory: normal respiratory effort, lungs clear to auscultation Cardiovascular: Rate/Rhythm: + tachycardic and + irregularly irregular Vessels: normal peripheral pulses Extremities: + edema (+1 edema BLE) Gastrointestinal (Abdomen): normal bowel sounds, soft, nontender, no hepatosplenomegaly Percussion/Palpation: + hernia (RLQ) Musculoskeletal: no cyanosis or clubbing, extremities motor strength 5/5 Skin: no rashes, warm and dry Neurologic: PERRL, EOMI, accommodation nl, no face palsy, no dysarthria Psychiatric: A+Ox3, euthymic affect Results & Data Results & Data ([facility]) Vital Signs (Past 12 Hours) Vital Signs Temp Pulse Resp BP Pulse Ox 03/06/20 17:40 138 H 18 101/77 03/06/20 17:30 138 H 12 106/63 03/06/20 17:23 142 H 20 97/75 L 03/06/20 17:20 132 H 20 97/75 L 03/06/20 17:10 139 H 20 89/70 L 03/06/20 17:00 141 H 16 91/74 L 03/06/20 16:50 128 H 15 97/69 L 98 03/06/20 16:40 142 H 12 89/70 L 97 03/06/20 16:30 140 H 12 88/68 L 97 03/06/20 16:20 130 H 14 94/72 L 98 03/06/20 16:19 135 H 12 96/64 L 97 03/06/20 16:13 133 H 18 89/70 L 97 03/06/20 16:03 132 H 14 72/60 L 98 03/06/20 15:47 137 H 16 76/63 L 97 03/06/20 15:45 124 H 15 68/52 L 97 03/06/20 15:40 134 H 12 103/69 97 03/06/20 15:35 142 H 21 85/67 L 98 03/06/20 15:30 140 H 15 89/73 L 96 03/06/20 15:26 162 H 17 84/68 L 96 03/06/20 15:21 140 H 13 92/69 L 97 03/06/20 15:05 137 H 17 93/71 L 95 03/06/20 15:00 138 H 16 94/68 L 95 03/06/20 14:55 149 H 15 96/71 L 96 03/06/20 14:50 136 H 20 74/45 L 95 03/06/20 14:45 152 H 20 92/64 L 96 03/06/20 14:40 149 H 104/72 96 03/06/20 14:39 160 H 113/68 95 03/06/20 14:20 160 H 20 86/60 L 98 03/06/20 14:15 150 H 20 83/58 L 96 03/06/20 14:10 37.4 C 149 H 12 93/64 L 95 03/06/20 14:05 149 H 18 88/68 L 96 03/06/20 14:00 155 H 14 97/76 L 96 03/06/20 13:58 163 H 20 96/61 L 96 03/06/20 13:55 142 H 21 86/61 L 96 03/06/20 13:54 153 H 22 118/98 97 03/06/20 13:52 150 H 91/75 L 98 03/06/20 13:51 62/37 L 98 03/06/20 13:49 153 H 14 77/62 L 96 Laboratory Results Short CBC 03/06/20 03/06/20 03/06/20 Range/Units 13:50 13:50 14:06 WBC 21.22 H (4.8-10.8) K/uL Hgb 8.1 L (14.0-18.0) g/dL Hct 24.3 L (42-52) % Plt Count 266 (130-400) K/uL Potassium 2.5 L* (3.5-5.1) mmol/L Lactate 4.8 H* (0.4-2.0) mmol/L 03/06/20 03/06/20 Range/Units 17:10 17:36 WBC (4.8-10.8) K/uL Hgb (14.0-18.0) g/dL Hct (42-52) % Plt Count (130-400) K/uL Potassium 2.9 L D (3.5-5.1) mmol/L Lactate 2.4 H* (0.4-2.0) mmol/L BMP 03/06/20 03/06/20 13:50 17:36 Sodium 135 L Potassium 2.5 L* 2.9 L D Chloride 99 Carbon Dioxide 24 BUN 96 H Creatinine 2.71 H Glucose 167 H Calcium 8.1 L Cardiac Enzymes 03/06/20 Range/Units 13:50 Troponin I 0.044 (0-0.045) ng/ml Liver Function 03/06/20 Range/Units 13:50 Total Bilirubin 0.4 (0.2-1) mg/dl AST 36 (15-37) U/L ALT 31 (12-78) U/L Alkaline Phosphatase 203 H (45-117) U/L Albumin 1.9 L (3.4-5.0) gm/dl Urine 03/06/20 Range/Units 15:35 Urine Color Yellow Urine Appearance Cloudy A (Clear) Urine pH 5.0 (4.5-7.5) Ur Specific [place] 1.015 (1.000-1.030) Urine Protein Trace H (Negative) Urine Glucose (UA) Negative (Negative) Diagnostic Findings CT ABD/PELVIS IMPRESSION: 1. Study significantly limited due to the lack of intravenous and oral contrast 2. Multiple hepatic masses suspicious for metastatic disease 3. Moderate bilateral hydronephrosis and hydroureter. No obstructing calculi identified 4. Prostatomegaly and distended urinary bladder 5. Prominent stool-filled sigmoid colon. Abnormal soft tissue at the level of the lower sigmoid/rectum with perirectal soft tissue nodules. The findings are suspicious for neoplasm. This may be resulting in a low grade colonic obstruction 6. Right anterolateral abdominal wall hernia containing bowel. There is no current evidence of obstruction at this level. Head CT Impression: No acute intracranial abnormality. CXR IMPRESSION: Cardiomegaly without acute process. Code Status & VTE Plan Code Status Patient is a DNR as per my discussion with him. VTE Prophylaxis Plan VTE Prophylaxis will be ordered: Yes Supervising Physician Co-Signing Physician Notes HISTORY: Record reviewed. Patient interviewed and examined. Care coordinated with HANNAH Eastman, please refer to her documentation for complete history. Briefly, 80 YO male with history of colon cancer s/p resection, chemotherapy, radiation therapy with peritoneal recurrence, hypertension, prediabetes, and other problems as noted. Possible history of paroxysmal atrial fibrillation. Presented to ED with weakness, fever, chills. Experiencing loose stools. No cough / SOB. Fernandes catheter placed in ED with immediate urine output of ~ 2000 ml. Therapeutics in ED- LR x 3 L IV cefepime + metronidazole IV KCl (esmolol was ordered, but never started because of hypotension) EXAM: General- no acute distress Lungs- clear to auscultation; no respiratory distress Cardiovascular- irregularly irregular; tachycardic; auscultation limited but no murmur/palmer/rub appreciated; no JVD; 1+ pretibial edema; capillary refill < 2 sec Abdomen- quiet bowel sounds, soft, nontender; nontender hernia RLQ Rectal- prostate boggy, tender Extremities- no cyanosis; no calf tenderness Neuro- alert, oriented Skin- no rash, warm & dry DATA: 03/06/20 13:50 document embedded image Mg 2.0 alk phos 203, other LFT's normal lactate 4.8 UA- + leukocyte esterase, WBC's, bacteria procalcitonin 31 Other lab studies as noted. Portable chest x-ray reviewed by the undersigned and formally interpreted by Radiology: CT head negative. CT abdomen + pelvis: hepatic lesions worrisome for mets normal-appearing gallbladder bilateral hydronephrosis prostatomegaly + distended bladder perirectal soft tissue nodules right anterolateral abdominal hernia without obstruction EKG performed at 1324 reviewed and demonstrated AF at 156 / minute, QTc 473 msec, slight ST depression laterally. ASSESSMENT AND PLAN: SEVERE SEPSIS / SEPTIC SHOCK Presented with weakness, fever, rigors. AF with AVR. Systolic BP's initially in 60's - 70's. WBC 21,220. Lactate 4.8. Procal 31. Met criteria for severe sepsis with septic shock per current CMS definition (SIRS + BRYAN + hypotension + lactate > 4).. Blood and urine cultures obtained in ED. Received broad-spectrum antibiotic therapy with cefepime and metronidazole. Received fluid resuscitation with 3 L LR with improvement of hemodynamics. Repeat lactate 2.4. Suspected source of sepsis = urinary tract (prostatitis and/or pyelonephritis); consider recurrent C diff. IV cefepime and daptomycin for urinary tract. IV metronidazole until C diff ruled out. History of apparent adverse reaction to PO vancomycin in the past, so it will not be ordered per 's request. ATRIAL FIBRILLATION WITH RVR Patient does not recall any prior AF, but family member believes that he has had PAF. K 2.5. Mg & TSH normal. Replace K. Consider initiation of beta mikala when hemodynamics permit. Consider anticoagulation if stools heme negative. ACUTE KIDNEY INJURY Baseline creatinine 1.1 11/22/19. Serum creatinine in ED 2.7. Acute kidney injury, multifactorial- obstruction, volume depletion, sepsis. Fernandes cath inserted for urinary retention. Consider Urology consult. Consult Nephrology if no improvement. Follow. HYPOKALEMIA K 2.5. On HCTZ and experiencing diarrhea. Hold HCTZ. Replace K. Follow. 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 Check stools for C diff. PREDIABETES Random glucose 167. Glycemic management per ICU protocol. ANEMIA Baseline Hgb 10.9 11/16/19. Hgb now 8.1. No gross GI bleeding. Check anemia work-up with next labs. Follow H/H. No need for transfusion at this time per current guidelines. RECURRENT METASTATIC COLON CA Has been followed by Dr. Nicole ([facility] in [place]) and [facility]. S/P resection, chemo, radiation therapy. Recurrent disease with peritoneal implants, possible lung met RLL, elevated CEA. Last seen by Dr. Nicole January; pt opted not to consider additional therapies. VTE PROPHYLAXIS SQ heparin. Consider IV heparin for AF. DNR STATUS Per patient's instructions. Please refer to NEL Dewey's documentation for discussion of other issues. Patients Medical Oncologist given update by phone. Asked Radiology Dept to send PACS images to [facility].
--- NOTE | 2020-03-06 18:40 | Critical Care Consultation ---
Date of Consultation March 06, 2020 Assessment & Plan (1) Septic shock: Reason Critically Ill: 80 -year-old male here with a PMHx significant for metastatic colon cancer who presented with generalized weakness and who was admitted for septic shock and new onset A. fib with RVR. Neuro - CAM ICU: NEGATIVE Sedation: None Analgesia: None No acute issues Cardiac - * New onset A. fib with RVR * Blood pressures were initially in the 80s over 70s, have come up to 101/77 status post 3 L of lactated Ringer's in the emergency department * Has not received any rate or rhythm control agents. Is not currently on any anticoagulation * Will trial 2.5 mg of metoprolol for rate control in the ICU. If unable to tolerate with blood pressures will start phenylephrine for blood pressure support. Respiratory - * No acute issues breathing well with an O2 sat of 98 on room air * Clear to auscultation bilaterally no indication for pneumonia or primary lung disease GI - * Ongoing diarrhea * History of C. difficile treated with vancomycin * Last patient treatment was at the end of October,CT abdomen showing prominent stool-filled sigmoid colon, perirectal soft tissue nodules that could be suspicious for neoplasm or as cause of low-grade colonic obstruction * Repeat C. difficile gene and toxin testing ordered * Zofran as needed for nausea * History of metastatic colon cancer * Multiple hepatic lesions on CT abdomen suspicious for metastatic disease RENAL/LYTES - * Electrolyte derangement * Hypokalemia initially 2.5 up to 2.9 after IV potassium, additional K riders and 40 mg potassium p.o. ordered * Follow-up potassium in the a.m. * Hyponatremia of 135 * Hypocalcemia of 8.1 * BRYAN * Creatinine of 2.71, BUN of 96 on admission. * No baseline and no chronic kidney disease known * 1+ blood without RBCs in UA, will order CPK * Pyelonephritis * UA concerning for bacterial infection with presence of bacteria and white blood cells and leukocyte esterase - * Prostatitis * boggy and tender prostate on exam per admitting provider * Likely secondary to radiation therapy ENDO - * No acute concerns * morning cortisol ordered HEME - * Anemia of 8.1 likely chronic * Continue to monitor ID - * Currently afebrile did have subjective chills at home * Pyelonephritis and prostatitis concerning for sources of infection * Received cefepime, metronidazole IV, daptomycin in the emergency department * Will restrict antibiotics to ceftriaxone as most likely causative agent is a gram-negative bacteria from the tract INTEGUMENTARY - * No acute concerns LINES/IV ACCESS - PIVs intact. DVT PROPHYLAXIS - Heparin subcu twice daily Thank you for allowing us to be part of this patient's care. Please refer to Dr. Sky's documentation for any further recommendations. (2) Anemia: (3) DVT prophylaxis: (4) Atrial fibrillation with RVR: (5) Hypokalemia: (6) Hx of Clostridium difficile infection: (7) Colon cancer: (8) Radiation proctitis: (9) Ileostomy status: (10) BRYAN (acute kidney injury): Supervising Physician Co-Signing Physician Notes Patient seen and examined. EMR reviewed. Discussed with attending hospitalist as well as family practice resident. Agree with assessment and plan as noted. Continue antibiotics for presumed urosepsis. Await blood culture results. Pressors if needed. Check random cortisol. Antibiotics tailored based on culture data. 35 minutes critical care time History of Present Illness History of Present Illness 80-year-old male with a history of metastatic colon cancer been complaining of weakness for the past couple of days. Last radiation treatment was at the end of October. He says that he has been having loose bowel movements and diarrhea since that time. He did have an intermittent hospitalization during which she was diagnosed with C. difficile and treated for multiple weeks afterwards with vancomycin. He states he was having chills at home but denies any fevers. 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 He denies any chest pain, palpitations. He did have some shortness of breath last night which required him to put on 6 L of nasal cannula at home in order to go to bed. He did feel more rested and breathing appropriately this morning. He denies any abdominal pain but does have some baseline nausea has not had any episodes of vomiting. He hematochezia or hematuria. He denies any cardiac history says he largely has just been feeling progressively very tired and wiped out. Allergies Allergy/AdvReac Type Severity Reaction Status Date / Time ragweed pollen Allergy Intermediate SNEEZING Unverified 03/06/20 14:45 plum Allergy Mild VERTIGO Verified 03/06/20 14:45 (RED PLUMS) amoxicillin Allergy Unknown HEADACHES, Unverified 03/06/20 14:45 FEELS LIGHT HEADED soy Allergy Unknown RASH Unverified 03/06/20 14:45 vancomycin AdvReac Intermediate severe Verified 03/06/20 21:29 lower extremity edema epinephrine AdvReac Unknown "DROPS BP Verified 03/06/20 14:45 LIKE A ROCK" Food Additives Allergy Unknown Nitrites - Uncoded 03/06/20 14:45 cardiac arrhythmias Pesticides Allergy Unknown RASH Uncoded 03/06/20 14:45 Home Medications Home Medications Medication Instructions Recorded Confirmed Type calcium carbonate 600 mg PO BID 03/06/20 03/06/20 History hydrochlorothiazide 25 mg PO DAILY 03/06/20 03/06/20 History potassium chloride [Klor-Con M20] 20 meq PO BID 03/06/20 03/06/20 History Patient History Medical History Colon cancer HTN (hypertension) Radiation proctitis Surgical History History of appendectomy (Resolved) History of colon resection History of tonsillectomy and adenoidectomy Ileostomy status history of ileostomy s/p reversal Family History Other Family history non-contributory Social History Smoking Status: Never smoker Hx Alcohol Use: No Hx Substance Use: No Preferred Language: Norwegian Communication Ability: Effective Studio Designer Required: No Beliefs That Will Affect Care: None Current Living Situation: Spouse Other Information That Helps Us Care for You: No Feels Safe at Home: Yes Safety Concerns: Feels Safe At This Time Review of Systems Review of Systems: All systems reviewed & are unremarkable except as noted in HPI & below Physical Exam Physical Exam: VITAL SIGNS - Vital signs and nursing notes were reviewed. GENERAL -80-year-old male appearing ill but in no acute distress SKIN - Without rashes. HEAD - NC/AT. Multiple moles and other skin changes on posterior scalp EYES - PERRL. Sclera anicteric. Palpebral conjunctiva pink and moist with no injection noted. EARS - No deformities of external structures noted on gross examination bilaterally. NOSE - Midline and without cyanosis. No epistaxis or purulent drainage noted. MOUTH/OROPHARYNX -tongue midline, no erythema or other abnormalities noted. NECK - Supple to palpation. No nuchal rigidity. LUNGS -clear to auscultation bilaterally, no crackles, rhonchi, wheezes noted. CARDIAC - bradycardic sinus rhythm with S1/S2. No murmur, rubs, or gallops appreciated. ABDOMEN -soft, nontender, nondistended, normal bowel sounds. EXTREMITIES - No clubbing or peripheral cyanosis. 1+ pitting edema to the ankles bilaterally. Peripheral pulses difficult to palpate NEUROLOGIC - No focal neurological deficits noted on exam. Results & Data Results & Data ([facility]) Vital Signs (Past 12 Hours) Last Vitals: Blood pressure 101/77, heart rate 138, respiratory rate 18, temperature 37.4 C, O2 sat 98 on room air Initial labs: White blood count 21.22, hemoglobin 8.1, hematocrit 24.3, platelet count 266, neutrophil predominance PT 12.3, INR 1.2 Sodium 135, potassium 2.9, chloride 99, carbon dioxide 24, BUN 96, creatinine 2.71 Lactate 4.8 initially, down to 2.4 after fluid boluses Calcium 8.1, magnesium 2 AST 36, ALT 31, alkaline phosphatase 203 Troponin 0 0.044 Procalcitonin 31.57 TSH 0.957 UA significant for cloudy urine with 1+ blood, 3+ leukocyte Estrace, greater than 30 white blood cell, 0-4 RBC, 1+ bacteria CT Abd/Pelv: 1. Study significantly limited due to the lack of intravenous and oral contrast 2. Multiple hepatic masses suspicious for metastatic disease 3. Moderate bilateral hydronephrosis and hydroureter. No obstructing calculi identified 4. Prostatomegaly and distended urinary bladder 5. Prominent stool-filled sigmoid colon. Abnormal soft tissue at the level of the lower sigmoid/rectum with perirectal soft tissue nodules. The findings are suspicious for neoplasm. This may be resulting in a low grade colonic obstruction 6. Right anterolateral abdominal wall hernia containing bowel. There is no current evidence of obstruction at this level. Micro Urine culture, blood cultures pending Resident Activity Tracking Resident Involvement: Resident Care Provided Care Provided: [facility]
[2020-03-06] MEDS ORDERED: DAPTOMYCIN CONSULT ACTIVE PRN (19:16)
[2020-03-06] MEDS ORDERED: DAPTOmycin 600 MG in SYRINGE 0 ML IV ONE (19:16)
[2020-03-06] MEDS ORDERED: ICU PROTOCOL FOR HYPERGLYCEMIA PRN (19:16)
--- NOTE | 2020-03-06 19:16 | Communication Note ---
Date of Service: March 06, 2020 Sepsis recheck. Hemodynamics improved with LR 1 liter boluses x 3. Vitals @ 19:10 - temp 37.4, pulse 136, resp 12, BP 105/78, MAP 85 Neck- + JVD Lungs- clear Heart- irregularly irregular, less tachy, no gallop appreciated Abdo- + BS, soft, nontender - Fernandes cath Extr- 1+ pretibial edema; radial pulses 2/2; pedal pulses 1/2; toes warm with cap refill 1-2 sec Skin- no rash, no cyanosis, warm, dry Neuro- alert, oriented. Lactic acid 4.8 --> 2.4 K 2.5 -->2.9 A/P: Severe sepsis with lactate > 4 = septic shock per current CMS definition. Probable source urinary tract infection. R/O C diff- PCR pending. Hemodynamics improved with fluid resuscitation; did not require pressor support. Hyperlactatemia improving. Continue broad-spectrum antibiotic coverage with daptomycin, cefepime, metronidazole. Persistent AF, rate improved. Hopefully will convert to NSR with electrolyte replacement.
[2020-03-06] MEDS ORDERED: POTASSIUM PHOS 3 MMOL/1 ML INFUSION IV STA (19:17)
[2020-03-06] MEDS ORDERED: ICU ELECTROLYTE REPLACEMENT PROTOCOL PRN (19:17)
[2020-03-06] MEDS ORDERED: LACTATED RINGER'S 1,000 ML IV SCH (19:30)
[2020-03-06] MEDS ORDERED: MAGNESIUM SULFATE / D5W 1 GM/100 ML BAG IV ONE (19:30)
[2020-03-06] MEDS ORDERED: CALCIUM CITRATE 950 MG TAB PO ONE (19:45)
[2020-03-06] MEDS ORDERED: POTASSIUM PHOSPHATE 9 MMOL in SODIUM CHLORIDE 0.9% 250 ML IV ONE (20:00)
[2020-03-06] MEDS: POTASSIUM CHLORIDE / WTR 10 MEQ/100 ML PLCT IV SCH ×2 (20:29→21:44)
[2020-03-06] MEDS: HEPARIN SOD 5,000 UNIT/0.5 ML VIAL SQ SCH ×2 (20:30→20:56)
[2020-03-06 23:30] LABS: BUN Creatinine Ratio 37.1 (10-20); Calcium 7.7 mg/dl (8.5-10.1); Creatinine Clr Calc Pharmacy 29.9 ml/min; Est GFR (African American) 30.6; Est GFR (Non-African American) 26.4; Magnesium 2.5 mg/dl (1.8-2.4); Phosphorus 4.2 mg/dl (2.5-4.9); Potassium 3.4 mmol/L (3.5-5.1)
[2020-03-06] MEDS ORDERED: HEPARIN 100 UNIT/ML 5ML FLUSH FLUSH PRN (23:50)
[2020-03-07] MEDS: metroNIDAZOLE 500 MG/100 ML BAG IV SCH ×2 (00:33→08:52)
[2020-03-07] MEDS ORDERED: STAT IV Infusion **Titration per Protocol STA (02:20)
[2020-03-07] MEDS: LACTATED RINGER'S 1,000 ML IV SCH ×3 (02:37→18:33)
[2020-03-07] MEDS: PHENYLEPHRINE HCL 20 MG in DEXTROSE 5% 500 ML IV SCH ×2 (02:43→15:48)
[2020-03-07 04:10] LABS: Hematocrit (blood only) 23.6 % (42-52); Hemoglobin 7.7 g/dL (14.0-18.0); Mean Corpuscular Hemoglobin 27.9 pg (25-34); Mean Corpuscular Hgb Conc 32.6 g/dL (32-36); Mean Corpuscular Volume 85.5 fL (80-100); Mean Platelet Volume 9.9 fL (7.4-10.4); Platelet Count 274 K/uL (130-400); RDW Coefficient of Variation 17.4 % (11.5-14.5); RDW Standard Deviation 53.4 fL (36.4-46.3); Red Blood Count 2.76 M/uL (4.7-6.1); Reticulocyte % 1.8 % (0.5-2.0); Reticulocytes # 0.05 10^6/uL (0.02-0.10); White Blood Count 16.17 K/uL (4.8-10.8)
[2020-03-07 04:33] LABS: Calcium 7.7 mg/dl (8.5-10.1); Creatinine Clr Calc Pharmacy 30.5 ml/min; Est GFR (African American) 31.2; Est GFR (Non-African American) 26.9; Magnesium 2.4 mg/dl (1.8-2.4); Potassium 3.2 mmol/L (3.5-5.1)
[2020-03-07 04:38] LABS: Ferritin 610.9 ng/ml (8-388); Phosphorus 3.7 mg/dl (2.5-4.9)
[2020-03-07 04:52] LABS: Dohle Bodies 1+; Echinocytes 1+; Eosinophils # (auto) 0.02 K/uL (0-0.5); Eosinophils % (auto) 0.1 %; Immature Granulocytes # (auto) 0.05 K/uL (0.00-0.02); Immature Granulocytes % (auto) 0.3 %; Lymphocytes # (auto) 1.41 K/uL (1.2-3.4); Lymphocytes % (auto) 8.7 %; Monocytes # (auto) 0.71 K/uL (0.11-0.59); Monocytes % (auto) 4.4 %; Neutrophils # (auto) 13.98 K/uL (1.4-6.5); Neutrophils % (auto) 86.5 %; Ovalocytes 1+
[2020-03-07] MEDS: HEPARIN SOD 5,000 UNIT/0.5 ML VIAL SQ SCH ×2 (05:17→12:47)
[2020-03-07] MEDS: POTASSIUM CHLORIDE / WTR 10 MEQ/100 ML PLCT IV SCH ×4 (06:34→11:12)
--- NOTE | 2020-03-07 07:42 | Billing Data ---
Date of Service March 06, 2020 Coding Level of Care Code Critical Care 1st - mins
[2020-03-07 09:13] LABS: Folate (Folic Acid) 5.42 ng/ml (>5.38)
[2020-03-07] MEDS ORDERED: CALCIUM CHLORIDE 10% 1,000 MG in SODIUM CHLORIDE 0.9% 50 ML IV ONE (10:15)
[2020-03-07] MEDS: ALBUMIN 25% 50 ML IV SCH ×4 (10:24→11:48)
[2020-03-07] MEDS: CEFEPIME 2,000 MG in SYRINGE 7.5 ML IV SCH (11:48)
--- NOTE | 2020-03-07 12:14 | Critical Care Progress Note ---
Date of Service March 07, 2020 Assessment & Plan (1) Radiation proctitis: Impression: 80 -year-old male here with a PMHx significant for metastatic colon cancer who presented with generalized weakness and who was admitted for septic shock and new onset A. fib with RVR. 24 hour events: admitted to ICU. Remains in a fib with RVR. Started NISH for hypotension. Sill with profuse loose stools. Recommendations: Neuro - No current issues Cardiac - New onset A. fib with RVR. Not a candidate for cardioversion without GERMAINE as unclear onset. Not fully anticoagulated currently, pt reports 'allergy' to heparin - but TAFOYA. EGFR borderline for lovenox. Reluctant to start DOAC in this patinet. Check TTE and cardiology consult - querry cardioversion? Start low dose metoprolol as BP may improve with better rate control/NSR. Albumin support. Respiratory - No acute issues breathing well with an O2 sat of 98 on room air GI - History of C diff, unable to test due to solid nature of stool. May be related to radiation. Supportive care for now as pt not candidate for endoscopy. Once sepsis resolves, may consider GI consultation, endoscopy and steroids. RENAL/LYTES - BRYAN, likley due to sepsis. Replacing electrolytes. Na better this AM. Replace Calcium. - bilateral hydronephrosis potentially related to bladder obstruction from BPH. Continue marin for now. Follow renal function. Start BPH medications. Will need voiding trial prior to discharge. ENDO - Glycemic control per protocol. Random cortisol OK. HEME/ONC- Anemia likely chronic. Continue to monitor. No signs of bleeding. History of metastatic colorectal CA, s/p multiple therapies. According to the patients , they are unaware of the liver lesions but the patient believes he is cancer free. Unclear if he is a candidate for any additional therapies. Recommended palliative consultation, requests we not discuss as she wants the patient to believe his is doing well. Will need to follow up with outpatient oncology. DNR status appropriate. ID - GNR bacteremia, likely urinary source. D#2 cefepime, continue pending speciation and sensitivity. INTEGUMENTARY - No acute concerns LINES/IV ACCESS - PIVs intact. Port accessed DVT PROPHYLAXIS - Tx heparin. Observe in ICU pending resolution of hypotension. Willl need PT and OT evaluations. (2) Septic shock: (3) Atrial fibrillation with RVR: (4) Severe sepsis: Admission and Anticipated Discharge Date Admission Date: March 06, 2020 Subjective Seen and examined. Discussed with patient and at bedside and with RESEARCH FOOD TECHNOLOGIST on MDR. Pt remains on low dose NISH for hypotension. Complains of severe weakness and deconditioning. Tolerating PO. Still with some palpitations. Reports history of allergy to heparin (headache). No syncope. No edema. Still with profuse diarrhea. Review of Systems Review of Systems: All systems reviewed & are unremarkable except as noted in HPI & below Physical Exam Constitutional: WD/WN, vitals as above + ill appearing; no acute distress Eyes: PERRL, conjunctivae normal, anicteric sclerae ENMT: Ears: no external ear abnormality Nose: no external nose abnormality Mouth: + poor dentition Respiratory: normal respiratory effort, lungs clear to auscultation Cardiovascular: Rate/Rhythm: + tachycardic and + irregularly irregular Vessels: normal peripheral pulses Extremities: + edema (+1 edema BLE) Gastrointestinal (Abdomen): normal bowel sounds, soft, nontender, no hepatosplenomegaly Percussion/Palpation: + hernia (RLQ) Musculoskeletal: no cyanosis or clubbing, extremities motor strength 5/5 Skin: no rashes, warm and dry Neurologic: PERRL, EOMI, accommodation nl, no face palsy, no dysarthria Psychiatric: A+Ox3, euthymic affect Results & Data Results & Data ([facility]) Vital Signs (Past 12 Hours) Vital Signs Temp Pulse Resp BP Pulse Ox 03/07/20 11:20 36.7 C 137 H 19 109/67 98 03/07/20 11:15 139 H 22 97 03/07/20 11:05 122 H 13 85/69 L 96 03/07/20 11:00 130 H 17 100 03/07/20 10:50 130 H 22 94/75 L 98 03/07/20 10:45 121 H 18 97 03/07/20 10:35 133 H 22 103/78 98 03/07/20 10:30 125 H 19 97 03/07/20 10:20 120 H 24 106/80 92 03/07/20 10:15 133 H 15 97 03/07/20 10:06 118 H 20 96/78 L 98 03/07/20 10:00 126 H 31 H 97 03/07/20 09:50 117 H 12 113/80 97 03/07/20 09:45 128 H 12 97 03/07/20 09:35 134 H 18 90/59 L 97 03/07/20 09:30 143 H 29 H 97 03/07/20 09:20 132 H 32 H 97/70 L 97 03/07/20 09:15 126 H 23 96 03/07/20 09:06 115 H 21 97 03/07/20 09:05 124 H 18 105/72 97 03/07/20 09:00 134 H 24 97 03/07/20 08:51 115 H 21 88/74 L 97 03/07/20 08:45 131 H 16 98 03/07/20 08:35 122 H 11 L 116/79 97 03/07/20 08:30 122 H 18 97 03/07/20 08:20 126 H 16 108/77 97 03/07/20 08:15 118 H 20 98 03/07/20 08:05 36.7 C 125 H 16 104/84 93 03/07/20 08:00 114 H 19 97 03/07/20 07:50 131 H 23 103/73 95 03/07/20 07:45 130 H 18 96 03/07/20 07:35 94 H 16 99/80 L 97 03/07/20 07:30 104 H 16 96 03/07/20 07:20 114 H 16 111/86 97 03/07/20 07:15 110 H 16 95 03/07/20 07:05 124 H 18 115/73 98 03/07/20 07:00 128 H 15 97 03/07/20 06:00 119 H 14 97 03/07/20 05:50 37 C 130 H 24 96/74 L 95 03/07/20 05:45 134 H 18 97 03/07/20 05:35 113 H 26 H 125/78 97 03/07/20 05:30 128 H 13 97 03/07/20 05:20 116 H 26 H 112/75 97 03/07/20 05:15 131 H 25 H 97 03/07/20 05:05 117 H 33 H 114/80 97 03/07/20 05:00 116 H 27 H 98 03/07/20 04:50 127 H 16 95/74 L 96 03/07/20 04:45 117 H 23 97 03/07/20 04:35 124 H 15 104/74 97 03/07/20 04:30 127 H 25 H 96 03/07/20 04:20 138 H 22 99/72 L 89 L 03/07/20 04:19 128 H 20 94/71 L 96 03/07/20 04:18 97 03/07/20 04:05 127 H 21 115/79 97 03/07/20 04:00 127 H 31 H 95 03/07/20 03:50 126 H 21 98/73 L 96 03/07/20 03:45 130 H 16 95 03/07/20 03:35 126 H 23 115/83 98 03/07/20 03:30 119 H 22 97 03/07/20 03:20 123 H 24 100/78 96 03/07/20 03:15 108 H 23 94 03/07/20 03:05 117 H 23 100/80 95 03/07/20 03:00 117 H 15 94 03/07/20 02:50 121 H 19 102/71 95 03/07/20 02:45 128 H 19 03/07/20 02:35 135 H 18 99/60 L 03/07/20 02:30 134 H 30 H 03/07/20 02:20 146 H 22 78/54 L 03/07/20 02:19 116 H 25 H 83/57 L 03/07/20 02:15 132 H 19 03/07/20 02:00 141 H 20 03/07/20 01:51 152 H 35 H 107/81 03/07/20 01:45 126 H 17 03/07/20 01:35 129 H 23 113/82 03/07/20 01:30 130 H 27 H 03/07/20 01:20 128 H 18 137/123 H 03/07/20 01:15 127 H 26 H 03/07/20 01:05 116 H 33 H 82/55 L 03/07/20 01:00 132 H 22 03/07/20 00:50 122 H 33 H 111/84 03/07/20 00:45 120 H 29 H 03/07/20 00:35 133 H 41 H 108/72 03/07/20 00:30 119 H 21 03/07/20 00:20 119 H 20 95/76 L 97 03/07/20 00:15 128 H 27 H 96 07/28/20 00:06 130 H 27 H 123/85 94 03/07/20 00:00 115 H 19 99 Laboratory Results 03/07/20 03:48 03/07/20 03:48 Diagnostic Findings No new films. Coding Level of Care Code Critical Care 1st 30-74 mins Diagnoses Radiation proctitis K62.7 Septic shock A41.9; R65.21 Atrial fibrillation with RVR I48.91 Severe sepsis A41.9; R65.20
[2020-03-07] MEDS ORDERED: CEFEPIME 2,000 MG in SYRINGE 7.5 ML IV SCH (14:00)
[2020-03-07] MEDS ORDERED: DIGOXIN 250 MCG in SYRINGE 9 ML IV ONE ×2 (14:30→15:45)
[2020-03-07] MEDS ORDERED: HEPARIN IV BOLUS 7,000 UNITS in SYRINGE 0 ML IV ONE ×2 (15:00→21:45)
[2020-03-07] MEDS: HEPARIN SODIUM/DEXTROSE 25,000 UNITS/500 ML BAG IV SCH (15:00)
--- NOTE | 2020-03-07 16:14 | Hospitalist Progress Note ---
Date of Service March 07, 2020 Assessment & Plan (1) Severe sepsis: -Patient presenting from home with reports of profound generalized weakness and an episode of rigors this morning -On presentation: BP 77/62, HR 153, afebrile, lactic acid 4.8 Percent of infection: Possible UTI, prostatitis -Likely urinary source, possible prostatitis -Patient is continued with IV cefepime/daptomycin -Acquired to be on pressors in ICU Blood pressure improved with IV fluid resuscitation, Off pressors -Lactic acid 4.8 -> 2.4, -normal level this a.m. -Follow blood and urine cultures (2) BRYAN (acute kidney injury): -Creatinine 2.7 (baseline 1.1) -The multiple factorial possible secondary to ongoing GI loss severe dehydration Gradually improving with IV fluids (3) Atrial fibrillation with RVR: -On presentation, patient in atrial fibrillation with RVR with rates in the 150s -New onset -Likely due to sepsis and/or hypokalemia -Beta mikala/AV robert avoided secondary to hypotension -Electrolytes corrected IV heparin on hold secondary to anemia Cardiology consulted (4) Hypokalemia: Replaced follow electrolytes closely (5) Anemia: -Hgb 8.1 (10.9 11/2019) -No obvious signs of bleeding - (6) Colon cancer: -Follows with Dr. 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 -10/2019 received re-irradiation and Xelda [place] [facility] [place] - poorly tolerated Developed severe radiation proctitis, incontinence, reports of 3040 bowel movements daily worse during the nighttime -CT scan suggesting metastatic hepatic disease Overall prognosis poor [facility] GI consulted to assist in management of radiation proctitis, bowel incontinence Code status: DNR/DNI (7) DVT prophylaxis: -SQ Heparin Admission and Anticipated Discharge Date Admission Date: March 06, 2020 Subjective Patient reports of ongoing bowel incontinence No fever or chills, no abdominal pain Has been off pressors since noon Physical Exam Constitutional: WD/WN, vitals as above + ill appearing; no acute distress Eyes: + anicteric sclerae ENMT: external ear and nose normal, oropharynx normal Neck: trachea midline, no thyromegaly Respiratory: normal respiratory effort, lungs clear to auscultation Cardiovascular: RRR, no murmur, no edema Gastrointestinal (Abdomen): Percussion/Palpation: abdomen soft; abdomen nontender Musculoskeletal: Generalized weakness Neurologic: PERRL, EOMI, accommodation nl, no face palsy, no dysarthria Psychiatric: A+Ox3, euthymic affect Results & Data Results & Data ([facility]) Vital Signs (Past 12 Hours) Vital Signs Temp Pulse Resp BP Pulse Ox 03/07/20 16:11 137 H 03/07/20 14:48 149 H 03/07/20 13:50 123 H 24 94/74 L 03/07/20 13:45 146 H 18 03/07/20 13:36 144 H 37 H 86/72 L 97 03/07/20 13:30 134 H 16 97 03/07/20 13:20 138 H 24 110/80 96 03/07/20 13:15 141 H 19 96 03/07/20 13:05 130 H 21 85/68 L 03/07/20 13:00 124 H 16 97 03/07/20 12:50 124 H 33 H 100/69 93 03/07/20 12:45 130 H 25 H 97 03/07/20 12:35 135 H 23 99/65 L 96 03/07/20 12:30 138 H 34 H 93 03/07/20 12:20 122 H 23 103/72 97 03/07/20 12:15 136 H 29 H 97 03/07/20 12:05 135 H 23 92/68 L 95 03/07/20 12:03 149 H 21 107/73 99 03/07/20 12:00 143 H 20 96 03/07/20 11:50 124 H 17 79/64 L 95 03/07/20 11:45 149 H 23 96 03/07/20 11:35 36.7 C 132 H 24 87/65 L 97 03/07/20 11:30 111 H 13 98 03/07/20 11:21 131 H 17 97 03/07/20 11:20 36.7 C 137 H 19 109/67 98 03/07/20 11:15 139 H 22 97 03/07/20 11:05 122 H 13 85/69 L 96 03/07/20 11:00 130 H 17 100 03/07/20 10:50 130 H 22 94/75 L 98 03/07/20 10:45 121 H 18 97 03/07/20 10:35 133 H 22 103/78 98 03/07/20 10:30 125 H 19 97 03/07/20 10:20 120 H 24 106/80 92 03/07/20 10:15 133 H 15 97 03/07/20 10:06 118 H 20 96/78 L 98 03/07/20 10:00 126 H 31 H 97 03/07/20 09:50 117 H 12 113/80 97 03/07/20 09:45 128 H 12 97 03/07/20 09:35 134 H 18 90/59 L 97 03/07/20 09:30 143 H 29 H 97 03/07/20 09:20 132 H 32 H 97/70 L 97 03/07/20 09:15 126 H 23 96 03/07/20 09:06 115 H 21 97 03/07/20 09:05 124 H 18 105/72 97 03/07/20 09:00 134 H 24 97 03/07/20 08:51 115 H 21 88/74 L 97 03/07/20 08:45 131 H 16 98 03/07/20 08:35 122 H 11 L 116/79 97 03/07/20 08:30 122 H 18 97 03/07/20 08:20 126 H 16 108/77 97 03/07/20 08:15 118 H 20 98 03/07/20 08:05 36.7 C 125 H 16 104/84 93 03/07/20 08:00 114 H 19 97 03/07/20 07:50 131 H 23 103/73 95 03/07/20 07:45 130 H 18 96 03/07/20 07:35 94 H 16 99/80 L 97 03/07/20 07:30 104 H 16 96 03/07/20 07:20 114 H 16 111/86 97 03/07/20 07:15 110 H 16 95 03/07/20 07:05 124 H 18 115/73 98 03/07/20 07:00 128 H 15 97 03/07/20 06:00 119 H 14 97 03/07/20 05:50 37 C 130 H 24 96/74 L 95 03/07/20 05:45 134 H 18 97 03/07/20 05:35 113 H 26 H 125/78 97 03/07/20 05:30 128 H 13 97 03/07/20 05:20 116 H 26 H 112/75 97 03/07/20 05:15 131 H 25 H 97 03/07/20 05:05 117 H 33 H 114/80 97 03/07/20 05:00 116 H 27 H 98 03/07/20 04:50 127 H 16 95/74 L 96 03/07/20 04:45 117 H 23 97 03/07/20 04:35 124 H 15 104/74 97 03/07/20 04:30 127 H 25 H 96 03/07/20 04:20 138 H 22 99/72 L 89 L 03/07/20 04:19 128 H 20 94/71 L 96 03/07/20 04:18 97
[2020-03-07 21:24] LABS: Partial Thromboplastin Ratio 1.3
[2020-03-07] MEDS: TAMSULOSIN HCL 0.4 MG CAP PO SCH (21:41)
--- NOTE | 2020-03-07 23:30 | Communication Note ---
Date of Service: March 07, 2020 Still in AF with RVR, otherwise improved. BP's OK off pressors. Oxygenating well. Will change status to PCU.
[2020-03-08] MEDS: CEFEPIME 2,000 MG in SYRINGE 7.5 ML IV SCH ×3 (01:02→23:18)
[2020-03-08] MEDS: LACTATED RINGER'S 1,000 ML IV SCH ×3 (02:47→17:59)
[2020-03-08] MEDS: HEPARIN SODIUM/DEXTROSE 25,000 UNITS/500 ML BAG IV SCH ×3 (04:53→16:55)
[2020-03-08 05:33] LABS: BUN Creatinine Ratio 33.2 (10-20); Calcium 7.8 mg/dl (8.5-10.1); Creatinine Clr Calc Pharmacy 38.3 ml/min; Est GFR (African American) 36.8; Est GFR (Non-African American) 31.7; Magnesium 2.1 mg/dl (1.8-2.4); Potassium 3.3 mmol/L (3.5-5.1)
[2020-03-08 05:39] LABS: Phosphorus 2.8 mg/dl (2.5-4.9)
[2020-03-08 07:39] LABS: Partial Thromboplastin Ratio 1.5; Partial Thromboplastin Time 40.6 Seconds (21.0-31.0)
--- NOTE | 2020-03-08 07:39 | Urology Consultation ---
Date of Consultation March 08, 2020 Assessment & Plan (1) Acute urinary retention: Bladder outlet obstruction causing bladder distention and bilateral hydronephrosis with renal failurecomplicated by infection Continue Fernandes catheter Continue tamsulosin Antibiotics Plan for voiding trial as an outpatient in 7 to 10 days He may benefit from a catheter long-term but we will see if he can void spontaneously No need for any other acute interventions from History of Present Illness Attending Physician: Sofiya Taylor MD History of Present Illness 80-year-old gentleman with a complex medical history including history of metastatic colon cancer status post numerous interventions including radiation with severe consequences Admitted to the hospital now with question of urosepsis Imaging upon arrival revealed significant bilateral hydro-as well as a grossly distended bladder He had a catheter placed and reports substantial subjective improvement He still feels that he is somewhat weak but feels that he is already better than he was upon arrival He has never previously been on tamsulosin or other medications for BPH He has a long history of voiding dysfunction including frequency, urgency, post void dribblingthis all worsened substantially after his radiation therapy Reviewing old imaging, even in 2013 he had a relatively distended bladder but di d not yet have hydronephrosis He has had some improvement in his creatinine since arrival and catheter placement Allergies Allergy/AdvReac Type Severity Reaction Status Date / Time ragweed pollen Allergy Intermediate SNEEZING Unverified 03/06/20 14:45 plum Allergy Mild VERTIGO Verified 03/06/20 14:45 (RED PLUMS) amoxicillin Allergy Unknown HEADACHES, Unverified 03/06/20 14:45 FEELS LIGHT HEADED Nitrate Analogues Allergy Verified 03/07/20 09:04 vancomycin AdvReac Intermediate severe Verified 03/06/20 21:29 lower extremity edema epinephrine AdvReac Unknown "DROPS BP Verified 03/06/20 14:45 LIKE A ROCK" Food Additives Allergy Unknown Nitrites - Uncoded 03/06/20 14:45 cardiac arrhythmias Pesticides Allergy Unknown RASH Uncoded 03/06/20 14:45 Home Medications Home Medications Medication Instructions Recorded Confirmed Type calcium carbonate 600 mg PO BID 03/06/20 03/06/20 History hydrochlorothiazide 25 mg PO DAILY 03/06/20 03/06/20 History potassium chloride [Klor-Con M20] 20 meq PO BID 03/06/20 03/06/20 History Patient History Medical History Colon cancer HTN (hypertension) Radiation proctitis Surgical History History of appendectomy (Resolved) History of colon resection History of tonsillectomy and adenoidectomy Ileostomy status history of ileostomy s/p reversal Family History Other Family history non-contributory Social History Smoking Status: Never smoker Hx Alcohol Use: No Hx Substance Use: No Preferred Language: Chadian Communication Ability: Effective 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 Beliefs That Will Affect Care: None marital status: Current Living Situation: Spouse How many Children do You have: 3 Other Information That Helps Us Care for You: No Feels Safe at Home: Yes Safety Concerns: Feels Safe At This Time Review of Systems Constitutional: + fatigue and + weakness; no fever and no chills Eyes: no worsening vision Ear, Nose, Mouth, Throat: no facial pain and no pain with swallowing Respiratory: no cough and no dyspnea Cardiovascular: no chest pain and no palpitations Gastrointestinal: no abdominal pain, no nausea and no vomiting Genitourinary: + problem reported Musculoskeletal: no back pain Integumentary: no rash and no urticaria Neurologic: no gait abnormality and no unsteadiness Psychiatric: no behavioral changes and no depression Endocrine: no fatigue Physical Exam Physical Exam: Large abdominal hernia Fernandes catheter in place Cloudy urine draining appropriately Constitutional: well developed and well nourished Neck: neck nontender Respiratory: normal respiratory effort; no respiratory distress and does not use accessory muscles Cardiovascular: Rate/Rhythm: regular rate Vessels: radial pulses present Extremities: no edema Gastrointestinal (Abdomen): Inspection/Auscultation: abdomen normal to inspection Percussion/Palpation: abdomen soft; abdomen nontender and no guarding Musculoskeletal: Head/Neck/Chest: normocephalic and head atraumatic Extremities: extremities normal to inspection Skin: no rashes and no lesions Trauma: no evidence of skin trauma Neurologic: awake; not obtunded Speech / Cognition: normal speech Motor/Sensory: no tremor Psychiatric: Orientation: alert and oriented x 3 Genitourinary: no CVA tenderness Lymphatic: no lymphadenopathy Results & Data Vital Signs (Past 12 Hours) Vital Signs Pulse Resp BP Pulse Ox 03/08/20 06:00 136 H 6 L 100 03/08/20 05:52 134 H 4 L 109/76 100 03/08/20 05:37 122 H 27 H 117/83 95 03/08/20 05:22 132 H 18 104/76 98 03/08/20 05:07 114 H 0 L 127/95 97 03/08/20 05:00 132 H 10 L 98 03/08/20 04:52 133 H 9 L 109/85 95 03/08/20 04:37 131 H 12 133/109 H 94 03/08/20 04:21 127 H 11 L 139/96 99 03/08/20 04:07 141 H 21 114/73 96 03/08/20 04:00 130 H 2 L 96 03/08/20 03:52 151 H 24 109/78 88 L 03/08/20 03:37 133 H 32 H 122/91 96 03/08/20 03:21 130 H 29 H 122/84 97 03/08/20 03:07 109 H 8 L 114/82 93 03/08/20 03:00 128 H 9 L 89 L 03/08/20 02:52 116 H 0 L 119/75 96 03/08/20 02:37 160 H 22 113/74 88 L 03/08/20 02:22 127 H 15 102/65 96 03/08/20 02:07 127 H 25 H 130/75 96 03/08/20 02:00 139 H 21 95 03/08/20 01:51 139 H 28 H 98/74 L 96 03/08/20 01:36 146 H 1 L 117/76 95 03/08/20 01:21 125 H 25 H 125/79 94 03/08/20 01:06 140 H 30 H 107/69 95 03/08/20 01:05 150 H 18 103/80 96 03/08/20 01:00 116 H 25 H 97 03/08/20 00:00 146 H 21 96 03/07/20 23:06 141 H 26 H 134/99 97 03/07/20 23:00 129 H 28 H 99 03/07/20 22:52 114 H 25 H 111/75 98 03/07/20 22:36 132 H 21 109/63 96 03/07/20 22:21 129 H 12 130/78 96 03/07/20 22:06 141 H 27 H 114/88 96 03/07/20 22:00 120 H 21 94 03/07/20 21:36 143 H 29 H 104/87 97 03/07/20 21:21 132 H 31 H 111/74 96 03/07/20 21:06 125 H 10 L 109/82 93 03/07/20 21:00 149 H 14 98 03/07/20 20:51 131 H 24 111/74 95 03/07/20 20:36 125 H 8 L 110/75 96 03/07/20 20:21 117 H 10 L 104/83 97 03/07/20 20:06 146 H 21 129/74 98 03/07/20 20:00 127 H 30 H 98 03/07/20 19:51 129 H 25 H 106/64 95 03/07/20 19:36 140 H 26 H 95/76 L 98 PG Care Time/CCT Total # of Minutes Spent Total Time Spent with Patient: Total time spent is greater than 50% in coordination of care (as documented) at patient's floor/unit and/or counseling patient: Coding Level of Care Code 75721 Inpt Consult Level 4 Diagnoses Acute urinary retention R33.8
[2020-03-08] MEDS: METOPROLOL TARTRATE 1 MG/ML VIAL IV PRN (08:29)
--- NOTE | 2020-03-08 08:49 | Gastrointestinal Consultation ---
Date of Consultation March 08, 2020 Assessment & Plan (1) Radiation proctitis: Mr. Whitehead's, diarrhea and frequent leaking of stools is likely secondary to combination of bladder distention (not allowing space for the rectum to collect stool), radiation proctitis causing weaker sphincters. Additionally, the CT finding may represents a new area of colon cancer vs. scarring from prior surgeries and radiation. He does not appear to have C-diff but could have other bacterial enteritis. Will need to obtain Dr. Swenson's most recent colonoscopy records. (most recent EPIC scanned colonoscopy by Dr. Swenson was October 2017). Would defer C-diff tx toxin is negative and his diarrhea/incontinence is improving with tx of bladder obstruction issues. Will check stool culture for other pathogens. Would defer repeat colonoscopy until after A-fib with RVR and urosepsis is resolved. According to the pt, he saw Dr. Taveras by televideo visit recently and flex sig was discussed but rad/onc says it is contraindicated due to frail tissue in the rectum. Pt should follow up with regular returned case inspector (either Dr. Taveras or Dr. Swenson) and that returned case inspector can discuss risks vs. benefits of repeat colonoscopy with the pt and his . I will send an [facility] note to Dr. Taveras updating him regarding CT findings and pt improvement in diarrhea. No indication for inpatient endoscopy. OK to use anti diarrheals. GI will sign off. Present on Admission?: Yes (2) Hx of Clostridium difficile infection: See above. Present on Admission?: Yes Supervising Physician Co-Signing Physician Notes I have personally seen and examined the patient with HANNAH Lau on 03/08/20. Her note reflects my exam and findings. I agree with her impression and plan. Trial of antidiarrheals. Most likely from combination or poor sphincter tone and radiation damage. No evidence of active C. diff. Luís Ramírez M.D. History of Present Illness Reason for Consultation: Diarrhea, radiation proctitis Requesting Physician: Dr. Mcdaniels Attending Physician: Fredo Mcdaniels MD History of Present Illness Mr. Eder Whitehead is an 80 yr old male pt of Dr. Bravo with a hx of colon cancer, dx'ed in 2013, tx with colon resection, chemoradiation. Since then two occurances of mets one in the lungs tx with radiation and one in the pelvis found in Aug 2019 irradiated. The pt has been undergoing surveillance colonoscopy, initially by our group (Dr. Ramírez completed the most recent colonoscopy in the [facility] in 2014) and more recently by Dr. Swenson though the pt has seen Dr. Taveras in [facility] recently for diarrhea. This hospital stay was precipitated by weakness and he is being tx for urosepsis. On arrival, he was also found to be in new A-fib with RVR. GI is consulted for diarrhea and radiation proctitis. Stool for c-diff shows Gene (+), toxin is pending. CT on arrival with new hepatic mets, hydronephrosis, BPH/distended bladder and stool filled sigmoid colon as we well as suspicious soft tissue nodules in the lower sigmoid/rectum. The pt tells me that he experienced C-diff during an IP stay at [facility] in November. Since that time he has had continued diarrhea, several times/day, loose to liquid without clear improvement in symptoms after completing Vancomycin in November. However, his diarrhea is complicated by poor anal sphincter tone and leaking of stool. Additionally, during this admission, he was found to have urinary bladder outlet obstruction from BPH and his diarrhea/incontinence improved with decompression of the bladder by Fernandes cath and initiation of Flomax. The pt passed only two BMs last evening and has not had any passage of fecal material since then. Allergies Allergy/AdvReac Type Severity Reaction Status Date / Time ragweed pollen Allergy Intermediate SNEEZING Unverified 03/06/20 14:45 plum Allergy Mild VERTIGO Verified 03/06/20 14:45 (RED PLUMS) amoxicillin Allergy Unknown HEADACHES, Unverified 03/06/20 14:45 FEELS LIGHT HEADED Nitrate Analogues Allergy Verified 03/07/20 09:04 vancomycin AdvReac Intermediate severe Verified 03/06/20 21:29 lower extremity edema epinephrine AdvReac Unknown "DROPS BP Verified 03/06/20 14:45 LIKE A ROCK" Food Additives Allergy Unknown Nitrites - Uncoded 03/06/20 14:45 cardiac arrhythmias Pesticides Allergy Unknown RASH Uncoded 03/06/20 14:45 Home Medications Home Medications Medication Instructions Recorded Confirmed Type calcium carbonate 600 mg PO BID 03/06/20 03/06/20 History hydrochlorothiazide 25 mg PO DAILY 03/06/20 03/06/20 History potassium chloride [Klor-Con M20] 20 meq PO BID 03/06/20 03/06/20 History Patient History Medical History Colon cancer HTN (hypertension) Radiation proctitis Surgical History History of appendectomy (Resolved) History of colon resection History of tonsillectomy and adenoidectomy Ileostomy status history of ileostomy s/p reversal Family History Other Family history non-contributory Social History Smoking Status: Never smoker Hx Alcohol Use: No Hx Substance Use: No Preferred Language: Kinyarwanda Communication Ability: Effective 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 Beliefs That Will Affect Care: None marital status: Current Living Situation: Spouse How many Children do You have: 3 Other Information That Helps Us Care for You: No Feels Safe at Home: Yes Safety Concerns: Feels Safe At This Time Review of Systems Review of Systems: ROS: Gen: + weakness, +50 lbs weight loss in 6 months; Denies fevers Eyes: No eye redness, or pain, no recent vision changes Resp: No SOB, no cough Cardio: Pt has not felt any palpitations/irregular beats, no chest pain GI: + diarrhea and incontinence No abdominal pain, no nausea/vomiting : Denies pain on urination Skin: No jaundice, itching or new rashes Physical Exam Constitutional: well developed, well nourished, + ill appearing and + obese awake, alert, oriented, very detailed historian, very pleasant Eyes: PERRL, conjunctivae normal, anicteric sclerae ENMT: external ear and nose normal, oropharynx normal Neck: trachea midline, no thyromegaly Respiratory: normal respiratory effort Auscultation: + diminished lung sounds (slightly) and + crackles (few fine crackles right base) Cardiovascular: 140's irregular, no murmurs, no edema Gastrointestinal (Abdomen): normal bowel sounds, soft, nontender, no hepatos plenomegaly Musculoskeletal: no cyanosis or clubbing, extremities motor strength 5/5 Skin: no rashes, warm and dry Neurologic: PERRL, EOMI, accommodation nl, no face palsy, no dysarthria Psychiatric: A+Ox3, euthymic affect Lymphatic: no cervical or axillary lymphadenopathy Results & Data ([facility]) Vital Signs (Past 12 Hours) Vital Signs Pulse Resp BP Pulse Ox 03/08/20 08:29 150 H 145/68 H 03/08/20 08:21 149 H 22 97 03/08/20 08:00 143 H 24 96 03/08/20 07:00 155 H 15 95 03/08/20 06:00 136 H 6 L 100 03/08/20 05:52 134 H 4 L 109/76 100 03/08/20 05:37 122 H 27 H 117/83 95 03/08/20 05:22 132 H 18 104/76 98 03/08/20 05:07 114 H 0 L 127/95 97 03/08/20 05:00 132 H 10 L 98 03/08/20 04:52 133 H 9 L 109/85 95 03/08/20 04:37 131 H 12 133/109 H 94 03/08/20 04:21 127 H 11 L 139/96 99 03/08/20 04:07 141 H 21 114/73 96 03/08/20 04:00 130 H 2 L 96 03/08/20 03:52 151 H 24 109/78 88 L 03/08/20 03:37 133 H 32 H 122/91 96 03/08/20 03:21 130 H 29 H 122/84 97 03/08/20 03:07 109 H 8 L 114/82 93 03/08/20 03:00 128 H 9 L 89 L 03/08/20 02:52 116 H 0 L 119/75 96 03/08/20 02:37 160 H 22 113/74 88 L 03/08/20 02:22 127 H 15 102/65 96 03/08/20 02:07 127 H 25 H 130/75 96 03/08/20 02:00 139 H 21 95 03/08/20 01:51 139 H 28 H 98/74 L 96 03/08/20 01:36 146 H 1 L 117/76 95 03/08/20 01:21 125 H 25 H 125/79 94 03/08/20 01:06 140 H 30 H 107/69 95 03/08/20 01:05 150 H 18 103/80 96 03/08/20 01:00 116 H 25 H 97 03/08/20 00:00 146 H 21 96 03/07/20 23:06 141 H 26 H 134/99 97 03/07/20 23:00 129 H 28 H 99 03/07/20 22:52 114 H 25 H 111/75 98 03/07/20 22:36 132 H 21 109/63 96 03/07/20 22:21 129 H 12 130/78 96 03/07/20 22:06 141 H 27 H 114/88 96 03/07/20 22:00 120 H 21 94 03/07/20 21:36 143 H 29 H 104/87 97 03/07/20 21:21 132 H 31 H 111/74 96 03/07/20 21:06 125 H 10 L 109/82 93 03/07/20 21:00 149 H 14 98 03/07/20 20:51 131 H 24 111/74 95 Laboratory Results WBC 21->16, Hb 7.7, Hct 23.6, Plt 274, Na 139, K 3.3, BUN 64, Cr 1.93, Mg 2.1 He is heparinized: Pt 12.3, INR 1.2 Stool for C-Diff gene (+), toxin pending. Diagnostic Findings Non contrast CT on 03/06: Study significantly limited due to the lack of intravenous and oral contrast 2. Multiple hepatic masses suspicious for metastatic disease 3. Moderate bilateral hydronephrosis and hydroureter. No obstructing calculi identified 4. Prostatomegaly and distended urinary bladder 5. Prominent stool-filled sigmoid colon. Abnormal soft tissue at the level of the lower sigmoid/rectum with perirectal soft tissue nodules. The findings are suspicious for neoplasm. This may be resulting in a low grade colonic obstruction. 6. Right anterolateral abdominal wall hernia containing bowel. There is no current evidence of obstruction at this level.
[2020-03-08 08:58] LABS: Cdiff Antigen Positive
[2020-03-08 08:59] LABS: Cdiff Toxin A+B Negative Cdiff Toxin (Negative)
[2020-03-08] MEDS ORDERED: HEPARIN IV BOLUS 7,000 UNITS in SYRINGE 0 ML IV ONE (09:15)
--- NOTE | 2020-03-08 09:36 | Cardiology Consultation ---
Date of Consultation March 07, 2020 Assessment & Plan (1) Atrial fibrillation with RVR: He presents with atrial fibrillation with a rapid heart rate, the duration is uncertain. Based on his description of taking his pulse oximetry 2 or 3 days prior to admission it is of relatively recent onset. I am going to give him digoxin today to try to help control the heart rate without dropping his blood pressure further. I do not believe he is significantly hemodynamically compromised with that I would not recommend cardioversion although that could be done probably with relative safety due to what we suspect is relatively recent onset of the arrhythmia. I would avoid amiodarone at the moment since that may tend to convert him. I would start heparin as an anticoagulant (he reportedly has an allergy but it does not sound like a real allergy). History of Present Illness Reason for Consultation: Rapid AF Attending Physician: Fredo Mcdaniels MD History of Present Illness This is an 80-year-old male with a history of colon cancer with metastases, hypertension who presented with chills, Reiger's and in the emergency room was in atrial fibrillation with a rapid heart rate. In the emergency room he had acute kidney injury and appeared to have urinary obstruction, he was also septic and received intravenous antibiotics. He was anemic and hypokalemic. At the time of my evaluation he was unaware of his rhythm despite the rapid rate. He and his did report that he had taken his pulse ox (which he does frequently) and did not notice his heart rate to be increased, he also takes his blood pressure regularly. He had not taken it for several days prior to coming in, but felt that he had taken it 2 or possibly 3 days before and had noted no increase in heart rate and felt that his vital signs were normal. He had no cardiovascular symptoms, he had no chest discomfort and is noted no palpitations. As an outpatient he was not on any rate control medications and not on anticoagulation. His presenting electrocardiogram on March 06, 2020 at 1334 shows atrial fibrillation a heart of 156 bpm, there are no acute changes although there are nonspecific ST-T abnormalities. Another electrocardiogram in the morning of March 07, 2020 shows atrial fibrillation with a heart rate of 132 bpm. Rate control has been somewhat problematic due to hypotension. Allergies Allergy/AdvReac Type Severity Reaction Status Date / Time ragweed pollen Allergy Intermediate SNEEZING Unverified 03/06/20 14:45 plum Allergy Mild VERTIGO Verified 03/06/20 14:45 (RED PLUMS) amoxicillin Allergy Unknown HEADACHES, Unverified 03/06/20 14:45 FEELS LIGHT HEADED Nitrate Analogues Allergy Verified 03/07/20 09:04 vancomycin AdvReac Intermediate severe Verified 03/06/20 21:29 lower extremity edema epinephrine AdvReac Unknown "DROPS BP Verified 03/06/20 14:45 LIKE A ROCK" Food Additives Allergy Unknown Nitrites - Uncoded 03/06/20 14:45 cardiac arrhythmias Pesticides Allergy Unknown RASH Uncoded 03/06/20 14:45 Home Medications Home Medications Medication Instructions Recorded Confirmed Type calcium carbonate 600 mg PO BID 03/06/20 03/06/20 History hydrochlorothiazide 25 mg PO DAILY 03/06/20 03/06/20 History potassium chloride [Klor-Con M20] 20 meq PO BID 03/06/20 03/06/20 History Patient History Medical History Colon cancer HTN (hypertension) Radiation proctitis Surgical History History of appendectomy (Resolved) History of colon resection History of tonsillectomy and adenoidectomy Ileostomy status history of ileostomy s/p reversal Family History Other Family history non-contributory Social History Smoking Status: Never smoker Hx Alcohol Use: No Hx Substance Use: No Preferred Language: Swedish Communication Ability: Effective 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 HEENT: Unremarkable Neck: No jugular venous distention, carotid pulses are irregular but otherwise normal and equal bilaterally without bruits. Pulmonary: Clear to auscultation bilaterally. Cardiac: Irregular rapid rhythm with no murmur, gallop or rub. Abdomen: Soft, nontender with normal bowel sounds. Extremities: No edema. Distal pulses intact. Neurologic: No focal findings. Gait is steady. Skin: No rash, ecchymoses or petechiae. Results & Data ([facility]) Vital Signs (Past 12 Hours) Vital Signs Pulse Resp BP Pulse Ox 03/08/20 08:29 150 H 145/68 H 03/08/20 08:21 149 H 22 97 03/08/20 08:00 143 H 24 96 03/08/20 07:00 155 H 15 95 03/08/20 06:00 136 H 6 L 100 03/08/20 05:52 134 H 4 L 109/76 100 03/08/20 05:37 122 H 27 H 117/83 95 03/08/20 05:22 132 H 18 104/76 98 03/08/20 05:07 114 H 0 L 127/95 97 03/08/20 05:00 132 H 10 L 98 03/08/20 04:52 133 H 9 L 109/85 95 03/08/20 04:37 131 H 12 133/109 H 94 03/08/20 04:21 127 H 11 L 139/96 99 03/08/20 04:07 141 H 21 114/73 96 03/08/20 04:00 130 H 2 L 96 03/08/20 03:52 151 H 24 109/78 88 L 03/08/20 03:37 133 H 32 H 122/91 96 03/08/20 03:21 130 H 29 H 122/84 97 03/08/20 03:07 109 H 8 L 114/82 93 03/08/20 03:00 128 H 9 L 89 L 03/08/20 02:52 116 H 0 L 119/75 96 03/08/20 02:37 160 H 22 113/74 88 L 03/08/20 02:22 127 H 15 102/65 96 03/08/20 02:07 127 H 25 H 130/75 96 03/08/20 02:00 139 H 21 95 03/08/20 01:51 139 H 28 H 98/74 L 96 03/08/20 01:36 146 H 1 L 117/76 95 03/08/20 01:21 125 H 25 H 125/79 94 03/08/20 01:06 140 H 30 H 107/69 95 03/08/20 01:05 150 H 18 103/80 96 03/08/20 01:00 116 H 25 H 97 03/08/20 00:00 146 H 21 96 03/07/20 23:06 141 H 26 H 134/99 97 03/07/20 23:00 129 H 28 H 99 03/07/20 22:52 114 H 25 H 111/75 98 03/07/20 22:36 132 H 21 109/63 96 03/07/20 22:21 129 H 12 130/78 96 03/07/20 22:06 141 H 27 H 114/88 96 03/07/20 22:00 120 H 21 94 03/07/20 21:36 143 H 29 H 104/87 97 Laboratory Results Coagulation 03/07/20 03/08/20 Range/Units 21:00 07:12 APTT 36.0 H 40.6 H (21.0-31.0) Seconds Comprehensive Metabolic Panel 03/08/20 Range/Units 04:39 Sodium 139 (136-145) mmol/L Potassium 3.3 L (3.5-5.1) mmol/L Chloride 107 (98-107) mmol/L Carbon Dioxide 27 (21-32) mmol/L BUN 64 H (7-18) mg/dl Creatinine 1.93 H (0.6-1.4) mg/dl Glucose 150 H (70-99) mg/dl Calcium 7.8 L (8.5-10.1) mg/dl Intake and Output 03/07/20 03/08/20 03/08/20 22:59 06:59 14:59 Intake Total 1465.333 / 6071.561 2094.667 / 6071.561 148.20 / 148.20 Output Total 1401 / 3606 1204 / 3606 Balance 64.333 / 2465.561 890.667 / 2465.561 148.20 / 148.20 Intake: IV 1125.333 / 4691.561 1374.667 / 4691.561 148.20 / 148.20 HEPARIN SODIUM/DEXTROSE 25,000 125.333 / 500.000 374.667 / 500.000 148.20 / 148.20 units In 500 ml @ 1,950 UNITS/ HR 39 mls/hr IV .[id number] JOIE Rx #:[id number] Lr 1,000 ml @ 125 mls/hr IV . 1000 / 2966.667 1000 / 2966.667 Q8H JOIE Rx#:[id number] Oral 340 / 1380 720 / 1380 Output: Urine Amount (Catheter) 1400 / 3600 1200 / 3600 Fernandes/Indwelling 1400 / 3600 1200 / 3600 # Bowel Movements Other: Weight 102 kg PG Care Time/CCT Total # of Minutes Spent Total Time Spent with Patient: Total time spent is greater than 50% in coordination of care (as documented) at patient's floor/unit and/or counseling patient: Coding Level of Care Code 16966 Initial Inpt Care Lvl 2 Diagnoses Atrial fibrillation with RVR I48.91
--- NOTE | 2020-03-08 09:55 | Cardiology Progress Note ---
Date of Service March 08, 2020 Assessment & Plan (1) Atrial fibrillation with RVR: He presented with atrial fibrillation with a rapid heart rate, the duration is uncertain. Based on his description of taking his pulse oximetry and blood pressure 2 or 3 days prior to admission and recalling that it was normal it is of relatively recent onset. Digoxin has not helped his rhythm. I do not believe he is significantly hemodynamically compromised with that I would not recommend cardioversion although that could be done probably with relative safety due to what we suspect is relatively recent onset of the arrhythmia. I would avoid amiodarone at the moment since that may tend to convert him. I would continue heparin as an anticoagulant. He is no longer on a pressor, I am going to start intravenous diltiazem and we watch his heart rate closely. Admission and Anticipated Discharge Date Admission Date: March 06, 2020 Subjective He is feeling well today. He remains unaware of his cardiac rhythm. No chest discomfort or shortness of breath. Physical Exam Physical Exam: Constitutional: Alert, cooperative and in no distress. HEENT: Unremarkable Neck: No jugular venous distention, carotid pulses are irregular but otherwise normal and equal bilaterally without bruits. Pulmonary: Clear to auscultation bilaterally. Cardiac: Irregular rapid rhythm with no murmur, gallop or rub. Abdomen: Soft, nontender with normal bowel sounds. Extremities: No edema. Distal pulses intact. Neurologic: No focal findings. Gait is steady. Skin: No rash, ecchymoses or petechiae. Results & Data ([facility]) Vital Signs (Past 12 Hours) Vital Signs Pulse Resp BP Pulse Ox 03/08/20 08:29 150 H 145/68 H 03/08/20 08:21 149 H 22 97 03/08/20 08:00 143 H 24 96 03/08/20 07:00 155 H 15 95 03/08/20 06:00 136 H 6 L 100 03/08/20 05:52 134 H 4 L 109/76 100 03/08/20 05:37 122 H 27 H 117/83 95 03/08/20 05:22 132 H 18 104/76 98 03/08/20 05:07 114 H 0 L 127/95 97 03/08/20 05:00 132 H 10 L 98 03/08/20 04:52 133 H 9 L 109/85 95 03/08/20 04:37 131 H 12 133/109 H 94 03/08/20 04:21 127 H 11 L 139/96 99 03/08/20 04:07 141 H 21 114/73 96 03/08/20 04:00 130 H 2 L 96 03/08/20 03:52 151 H 24 109/78 88 L 03/08/20 03:37 133 H 32 H 122/91 96 03/08/20 03:21 130 H 29 H 122/84 97 03/08/20 03:07 109 H 8 L 114/82 93 03/08/20 03:00 128 H 9 L 89 L 03/08/20 02:52 116 H 0 L 119/75 96 03/08/20 02:37 160 H 22 113/74 88 L 03/08/20 02:22 127 H 15 102/65 96 03/08/20 02:07 127 H 25 H 130/75 96 03/08/20 02:00 139 H 21 95 03/08/20 01:51 139 H 28 H 98/74 L 96 03/08/20 01:36 146 H 1 L 117/76 95 03/08/20 01:21 125 H 25 H 125/79 94 03/08/20 01:06 140 H 30 H 107/69 95 03/08/20 01:05 150 H 18 103/80 96 03/08/20 01:00 116 H 25 H 97 03/08/20 00:00 146 H 21 96 03/07/20 23:06 141 H 26 H 134/99 97 03/07/20 23:00 129 H 28 H 99 03/07/20 22:52 114 H 25 H 111/75 98 03/07/20 22:36 132 H 21 109/63 96 03/07/20 22:21 129 H 12 130/78 96 03/07/20 22:06 141 H 27 H 114/88 96 03/07/20 22:00 120 H 21 94 Laboratory Results Coagulation 03/07/20 03/08/20 Range/Units 21:00 07:12 APTT 36.0 H 40.6 H (21.0-31.0) Seconds Comprehensive Metabolic Panel 03/08/20 Range/Units 04:39 Sodium 139 (136-145) mmol/L Potassium 3.3 L (3.5-5.1) mmol/L Chloride 107 (98-107) mmol/L Carbon Dioxide 27 (21-32) mmol/L BUN 64 H (7-18) mg/dl Creatinine 1.93 H (0.6-1.4) mg/dl Glucose 150 H (70-99) mg/dl Calcium 7.8 L (8.5-10.1) mg/dl Intake and Output 03/07/20 03/08/20 03/08/20 22:59 06:59 14:59 Intake Total 1465.333 / 6071.561 2094.667 / 6071.561 148.20 / 148.20 Output Total 1401 / 3606 1204 / 3606 Balance 64.333 / 2465.561 890.667 / 2465.561 148.20 / 148.20 Intake: IV 1125.333 / 4691.561 1374.667 / 4691.561 148.20 / 148.20 HEPARIN SODIUM/DEXTROSE 25,000 125.333 / 500.000 374.667 / 500.000 148.20 / 148.20 units In 500 ml @ 1,950 UNITS/ HR 39 mls/hr IV .[id number] JOIE Rx #:[id number] Lr 1,000 ml @ 125 mls/hr IV . 1000 / 2966.667 1000 / 2966.667 Q8H JOIE Rx#:[id number] Oral 340 / 1380 720 / 1380 Output: Urine Amount (Catheter) 1400 / 3600 1200 / 3600 Fernandes/Indwelling 1400 / 3600 1200 / 3600 # Bowel Movements Other: Weight 102 kg Diagnostic Findings ECG: This morning atrial fibrillation with a heart rate of Telemetry: Atrial fibrillation with a rapid heart rate, little change in rate over the past 24 hours. Averages around 120 bpm visually. PG Care Time/CCT Total # of Minutes Spent Total Time Spent with Patient: Total time spent is greater than 50% in coordination of care (as documented) at patient's floor/unit and/or counseling patient: Coding Level of Care Code 90869 Subseq Hosp Care Lvl 2 Diagnoses Atrial fibrillation with RVR I48.91
[2020-03-08] MEDS ORDERED: dilTIAZem HCl 5 MG/ML 5 ML VIAL IV STA (10:04)
[2020-03-08] MEDS ORDERED: STAT IV Infusion **Titration per Protocol STA (10:04)
[2020-03-08] MEDS ORDERED: POTASSIUM CHLORIDE PWD 20 MEQ PACK PO ONE (10:15)
[2020-03-08] MEDS: dilTIAZem HCL 125 MG in DEXTROSE 5% 100 ML IV SCH ×2 (10:20→16:54)
--- NOTE | 2020-03-08 10:57 | Hospitalist Progress Note ---
Date of Service March 08, 2020 Assessment & Plan (1) Septic shock: (1) Severe sepsis: secondary to -Patient presenting from home with reports of profound generalized weakness and an episode of rigors this morning -On presentation: BP 77/62, HR 153, afebrile, lactic acid 4.8 -Likely urinary source, possible prostatitis Blood cultures: E coli Urine culture: E coli afebrile clinically improving continue Cefepime IV (2) BRYAN (acute kidney injury): -Creatinine 2.7 (baseline 1.1) -Likely multifactorial due to postobstructive uropathy and sepsis -Fernandes placed in the ED crea improved from 2.7 to 1.9 continue LR monitor (3) Atrial fibrillation with RVR: -On presentation, patient in atrial fibrillation with RVR with rates in the 150s -New onset -Likely due to sepsis and/or hypokalemia -Trying to avoid beta-blockers and calcium channel blockers due to current hypotension -Compliance Manager consulted started on Cardizem drip continue Heparin drip (+) mild epistaxis- patient re-evaluated around 6pm afrin spray applied to the right nostril , packed with small piece of gauze epistaxis resolving (4) Hypokalemia: -K+ 2.5, MG+ normal 2.0 -Replace, follow closely (5) Anemia: -Hgb 8.1 (10.9 11/2019) -No obvious signs of bleeding -Underlying malignancy likely contributing -Check Hemoccult stools -no indication for transfusion at this time (6) Colon cancer: Follows with Dr. Maryanne Nicole with [facility] hematology/oncology in [place] and [facility] -History of resection, chemo, radiation; also with pelvic mets and possible RLL -10/2019 received re-irradiation and Xelda at [facility] [place] - poorly tolerated -visit with Dr. Nicole 01/2020 patient declined further treatments -CT scan suggesting metastatic hepatic disease - GI consulted (7) DVT prophylaxis: on Heparin drip Disposition pending will need PT/OT Admission and Anticipated Discharge Date Admission Date: March 06, 2020 Subjective ff up for sepsis, UTI and bacteremia, a fib , etc seen resting in bed, sitting up states he feels improved today compared to yesterday less weak, appetite improving denies fever/chills denies abdominal pain, nausea/vomiting no chest pain, dyspnea, palpitations, dizziness no other symptoms Review of Systems Review of Systems: All systems reviewed & are unremarkable except as noted in HPI & below Physical Exam Physical Exam: General- oriented x 3, not in distress, speaks in sentences with no effort or accessory muscle use Head- atraumatic Eyes- PERRL, EOMI, anicteric ENT- oropharynx clear Neck- supple, no JVD, no adenopathy, no thyromegaly; carotids +2/2, no bruits appreciated Lungs- clear to auscultation bilaterally, no rales/wheezes Heart- tachycardic, irregularly irregular rhythm; no murmur, no gallop, no rub appreciated Abdomen- normal bowel sounds, nondistended, soft, nontender, no masses or hepatosplenomegaly Extremities- no pretibial edema, no calf tenderness; peripheral pulses intact Neuro- alert, oriented x 3; CN 2-12 grossly intact; motor 5/5 bilaterally;sensation 100% on all extremities; no other gross focal neurologic deficits Skin- warm & dry Results & Data Results & Data ([facility]) Vital Signs (Past 12 Hours) Vital Signs Pulse Resp BP Pulse Ox 03/08/20 08:29 150 H 145/68 H 03/08/20 08:21 149 H 22 97 03/08/20 08:00 143 H 24 96 03/08/20 07:00 155 H 15 95 03/08/20 06:00 136 H 6 L 100 03/08/20 05:52 134 H 4 L 109/76 100 03/08/20 05:37 122 H 27 H 117/83 95 03/08/20 05:22 132 H 18 104/76 98 03/08/20 05:07 114 H 0 L 127/95 97 03/08/20 05:00 132 H 10 L 98 03/08/20 04:52 133 H 9 L 109/85 95 03/08/20 04:37 131 H 12 133/109 H 94 03/08/20 04:21 127 H 11 L 139/96 99 03/08/20 04:07 141 H 21 114/73 96 03/08/20 04:00 130 H 2 L 96 03/08/20 03:52 151 H 24 109/78 88 L 03/08/20 03:37 133 H 32 H 122/91 96 03/08/20 03:21 130 H 29 H 122/84 97 03/08/20 03:07 109 H 8 L 114/82 93 03/08/20 03:00 128 H 9 L 89 L 03/08/20 02:52 116 H 0 L 119/75 96 03/08/20 02:37 160 H 22 113/74 88 L 03/08/20 02:22 127 H 15 102/65 96 03/08/20 02:07 127 H 25 H 130/75 96 03/08/20 02:00 139 H 21 95 03/08/20 01:51 139 H 28 H 98/74 L 96 03/08/20 01:36 146 H 1 L 117/76 95 03/08/20 01:21 125 H 25 H 125/79 94 03/08/20 01:06 140 H 30 H 107/69 95 03/08/20 01:05 150 H 18 103/80 96 03/08/20 01:00 116 H 25 H 97 03/08/20 00:00 146 H 21 96 03/07/20 23:06 141 H 26 H 134/99 97 03/07/20 23:00 129 H 28 H 99 Laboratory Results Laboratory Results - last 24 hr 03/07/20 03/08/20 03/08/20 21:00 04:39 04:39 APTT 36.0 H PTT Ratio 1.3 Sodium 139 Potassium 3.3 L Chloride 107 Carbon Dioxide 27 Anion Gap 5.0 BUN 64 H Creatinine 1.93 H Est Cr Clr Drug Dosing 38.3 Est GFR ( Amer) 36.8 Est GFR (Non-Af Amer) 31.7 BUN/Creatinine Ratio 33.2 H Glucose 150 H Calcium 7.8 L Phosphorus 2.8 Magnesium 2.1 Stl C. diff Tox B Gene Stl C.difficile Tox A&B Digoxin 0.7 L 03/08/20 03/08/20 03/08/20 06:25 07:12 14:47 APTT 40.6 H 60.4 H* PTT Ratio 1.5 2.2 Sodium Potassium Chloride Carbon Dioxide Anion Gap BUN Creatinine Est Cr Clr Drug Dosing Est GFR ( Amer) Est GFR (Non-Af Amer) BUN/Creatinine Ratio Glucose Calcium Phosphorus Magnesium Stl C. diff Tox B Gene Positive Cdiff Gene H Stl C.difficile Tox A&B Negative Cdiff Toxin Digoxin
--- NOTE | 2020-03-08 11:44 | XCELERA ---
[id number]
[2020-03-08 15:16] LABS: Partial Thromboplastin Ratio 2.2
[2020-03-08 15:35] LABS: Partial Thromboplastin Time 60.4 Seconds (21.0-31.0)
--- NOTE | 2020-03-08 16:45 | Electrocardiogram Report ---
Test Reason : Blood Pressure : / mmHG Vent. Rate : 156 BPM Atrial Rate : 156 BPM P-R Int : 000 ms QRS Dur : 094 ms QT Int : 294 ms P-R-T Axes : 000 -14 142 degrees QTc Int : 473 ms Atrial fibrillation with rapid ventricular response Nonspecific ST and T wave abnormality Abnormal ECG When compared with ECG of 09-OCT-2013 05:44, Atrial fibrillation has replaced Sinus rhythm Vent. rate has increased BY [address] now depressed in Lateral leads Confirmed by Stephen Moran ([id number]) on 03/08/2020 4:44:47 PM Referred By: REFERRED SELF Confirmed By:Stephen Moran
[2020-03-08] MEDS ORDERED: OXYMETAZOLINE 0.05% 30 ML BTL ONE (18:00)
[2020-03-08] MEDS: TAMSULOSIN HCL 0.4 MG CAP PO SCH (20:33)
[2020-03-08] MEDS ORDERED: ALBUMIN 25% 50 ML IV ONE (21:11)
[2020-03-08] MEDS ORDERED: DIGOXIN 250 MCG in SYRINGE 9 ML IV ONE ×2 (21:30→23:35)
[2020-03-08] MEDS ORDERED: MAGNESIUM SULFATE / D5W 1 GM/100 ML BAG IV ONE (21:30)
[2020-03-08] MEDS: POTASSIUM CHLORIDE / WTR 10 MEQ/100 ML PLCT IV SCH ×2 (21:42→22:47)
[2020-03-08] MEDS ORDERED: METOPROLOL TARTRATE 1 MG/ML VIAL IV STA (22:17)
[2020-03-08] MEDS ORDERED: POTASSIUM CHLORIDE PWD 20 MEQ PACK PO STA (22:18)
[2020-03-08] MEDS ORDERED: ALBUMIN 25% 50 ML with FUROSEMIDE 20 MG IV ONE (23:00)
[2020-03-08 23:12] LABS: BUN Creatinine Ratio 25.9 (10-20); Calcium 8.2 mg/dl (8.5-10.1); Creatinine Clr Calc Pharmacy 33.6 ml/min; Est GFR (African American) 31.4; Est GFR (Non-African American) 27.1; Magnesium 1.8 mg/dl (1.8-2.4); Potassium 3.6 mmol/L (3.5-5.1)
[2020-03-09] MEDS: dilTIAZem HCL 125 MG in DEXTROSE 5% 100 ML IV SCH ×5 (00:58→22:01)
[2020-03-09] MEDS ORDERED: ALBUMIN 25% 50 ML IV ONE (03:57)
[2020-03-09] MEDS ORDERED: DIGOXIN 250 MCG in SYRINGE 9 ML IV ONE (04:00)
[2020-03-09] MEDS: HEPARIN SODIUM/DEXTROSE 25,000 UNITS/500 ML BAG IV SCH ×2 (04:13→15:50)
[2020-03-09 05:46] LABS: Hematocrit (blood only) 22.5 % (42-52); Hemoglobin 7.5 g/dL (14.0-18.0); Mean Corpuscular Hemoglobin 28.5 pg (25-34); Mean Corpuscular Hgb Conc 33.3 g/dL (32-36); Mean Corpuscular Volume 85.6 fL (80-100); Mean Platelet Volume 10.4 fL (7.4-10.4); Platelet Count 195 K/uL (130-400); RDW Coefficient of Variation 17.8 % (11.5-14.5); RDW Standard Deviation 54.5 fL (36.4-46.3); Red Blood Count 2.63 M/uL (4.7-6.1)
[2020-03-09 06:01] LABS: BUN Creatinine Ratio 28.2 (10-20); Calcium 7.6 mg/dl (8.5-10.1); Creatinine Clr Calc Pharmacy 35.5 ml/min; Est GFR (African American) 33.6
[2020-03-09 06:06] LABS: Partial Thromboplastin Ratio 2.3
[2020-03-09 06:07] LABS: Phosphorus 2.2 mg/dl (2.5-4.9)
[2020-03-09 06:11] LABS: Partial Thromboplastin Time 65.5 Seconds (21.0-31.0)
--- NOTE | 2020-03-09 06:48 | XRay Report ---
XR chest 1V portable CLINICAL HISTORY: Shortness of breath COMPARISON STUDY: 03/06/2020 FINDINGS: The heart is enlarged. There is mild elevation of interstitium consistent with mild congest alejandro failure. A small left pleural effusion is visualized. There is left basilar atelectasis/consolida tion. There are nonspecific increased markings within the right superhilar region. A possibly related to congestive failure, a developing pneumonitis cannot be excluded[ IMPRESSION: 1. Cardiomegaly and radiographic evidence of mild congestive failure/fluid overload 2. Small pleural effusion 3. Left basilar airspace opacities, likely atelectatic although an infectious/inflammatory processes could appear similar 4. Right suprahilar opacities, while possibly secondary to congestive failure, a developing pneumonia cannot be excluded. ACT 112: Negative or not required by law. Electronically signed by: Israel Estevez M.D. 03/09/2020 6:46 AM
--- NOTE | 2020-03-09 07:32 | CT Scan Report ---
CT SCAN OF THE ABDOMEN AND PELVIS WITHOUT CONTRAST CLINICAL HISTORY: Fever, sepsis. COMPARISON STUDY: 03/06/2020 TECHNIQUE: CT scan of the abdomen and pelvis was performed from the lung bases to the proximal femurs . Images are reviewed in the axial, sagittal, and coronal planes. IV contrast was not administered fo r this examination. A dose lowering technique was utilized adhering to the principles of ALARA. CT DOSE: 1323.15 mGy.cm FINDINGS: Lower chest: There are enlarging bilateral pleural effusions with bibasilar airspace opacities likely representing compressive atelectasis although a pneumonia could appear similar there is a trace nakia cardial effusion Liver: Multiple hepatic masses are again suspected. Gallbladder: Unremarkable. Spleen: Normal in size and attenuation. Pancreas: Unremarkable. Adrenal glands: There is a stable left adrenal adenoma Kidneys: There is persistent bilateral hydronephrosis. No ureteral calculi are visualized. Bowel: There are no transition zones to indicate bowel obstruction. There is a bowel containing right -sided ventral hernia. There is mild fecal retention. Peritoneum: There is trace ascites. There is no free intraperitoneal air. Vasculature: The abdominal aorta is normal in course and caliber. Adenopathy: None. Pelvic viscera: There is a joint Fernandes catheter. The prostate is enlarged. There is persistent abnorm al soft tissue at the level of the lower rectum/sigmoid with adjacent soft tissue nodules/adenopathy. Neoplasm must be considered. Skeletal structures: No destructive osseous lesions are seen. There is generalized body wall edema/an asarca. IMPRESSION: 1. Persistent hepatic masses suspicious for metastatic disease. 2. Increasing bilateral pleural effusions with basilar parenchymal opacities likely atelectatic 3. Persistent bilateral hydronephrosis and hydroureter 4. Prostatomegaly and indwelling Fernandes catheter 5. No evidence of bowel obstruction. No evidence of free air 6. Bowel containing right-sided ventral abdominal wall hernia. No evidence of obstruction 7. Generalized body wall edema consistent with anasarca 8. Persistent perirectal/sigmoid soft tissue nodules suspicious for neoplasm. 9. Examination limited due to the lack of oral and intravenous contrast. ACT 112: Negative or not required by law. Electronically signed by: Israel Estevez M.D. 03/09/2020 7:30 AM
--- NOTE | 2020-03-09 08:21 | Electrocardiogram Report ---
Test Reason : Blood Pressure : / mmHG Vent. Rate : 132 BPM Atrial Rate : 129 BPM P-R Int : 000 ms QRS Dur : 092 ms QT Int : 336 ms P-R-T Axes : 000 040 120 degrees QTc Int : 497 ms Atrial fibrillation with rapid ventricular response Low voltage QRS Nonspecific T wave abnormality Abnormal ECG When compared with ECG of 06-MAR-2020 13:24, (unconfirmed) No significant change was found Confirmed by Stephen Moran ([id number]) on 03/09/2020 8:21:28 AM Referred By: REFERRED SELF Confirmed By:Stephen Moran
--- NOTE | 2020-03-09 09:20 | Electrocardiogram Report ---
Test Reason : Blood Pressure : / mmHG Vent. Rate : 144 BPM Atrial Rate : 144 BPM P-R Int : 000 ms QRS Dur : 086 ms QT Int : 246 ms P-R-T Axes : 000 -12 140 degrees QTc Int : 380 ms Atrial fibrillation with rapid ventricular response Nonspecific ST and T wave abnormality Abnormal ECG When compared with ECG of 07-MAR-2020 08:17, (unconfirmed) No significant change was found Confirmed by Stephen Moran ([id number]) on 03/09/2020 9:19:46 AM Referred By: REFERRED SELF Confirmed By:Stephen Moran
[2020-03-09] MEDS: CEFEPIME 2,000 MG in SYRINGE 7.5 ML IV SCH (12:41)
[2020-03-09] MEDS: DOXYCYCLINE HYCLATE 100 MG in DEXTROSE 5% 100 ML IV SCH (13:36)
[2020-03-09] MEDS ORDERED: FUROSEMIDE 80 MG in SYRINGE 0 ML IV ONE (15:30)
--- NOTE | 2020-03-09 16:01 | Consultation Report ---
DATE OF CONSULTATION: 03/09/2020 NEPHROLOGY CONSULTATION REASON FOR CONSULT: Acute renal failure. HISTORY OF PRESENT ILLNESS: The patient is an 80-year-old male with a baseline creatinine of around 1.1, was admitted to the hospital 3 days ago when he presented with urosepsis resulting from urinary obstruction with bilateral hydronephrosis. Since then, he has had Fernandes placed. He was also hypotensive and in atrial fibrillation at the time of presentation with elevated lactic acid. Since admission, the patient has received aggressive IV hydration. Creatinine has not changed a whole lot since being admitted. Creatinine was 2.71 on admission and it is still 2.08 with only minor radiation during the hospital stay. He still has a Fernandes catheter and is making urine. 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 Since then, has had lot of diarrhea. The patient does feel significantly better than presentation. ALLERGIES: List was reviewed in detail and is as per the medicine reconciliation list. HOME MEDICATIONS: Includes calcium carbonate, hydrochlorothiazide 25 daily and potassium chloride 20 twice daily. PAST MEDICAL/SURGICAL HISTORY: History of colon cancer, hypertension, history of radiation proctitis. PAST SURGICAL HISTORY: Appendicectomy, colon resection, tonsillectomy, adenoidectomy, history of ileostomy placement as well as reversal. FAMILY HISTORY: Negative for renal disease or dialysis. SOCIAL HISTORY: No smoking, no alcohol. and lives with his . REVIEW OF SYSTEMS: As detailed in HPI, 12 systems is reviewed and is otherwise negative. Positive review of systems at the time of admission included chronic diarrhea, poor appetite, generalized weakness. PHYSICAL EXAMINATION: GENERAL: Elderly white male who is awake, alert, oriented x3. He is not in any respiratory distress. He was able to give me detailed account of his medical problem. VITAL SIGNS: Most recent vital signs include blood pressure 113/65, pulse rate 113, temperature 36.4, 97% on room air. HEENT: Mucous membranes moist. NECK: Supple. No jugular venous distention. CHEST: Bilateral decreased breath sounds, occasional crackles. CARDIOVASCULAR SYSTEM: S1 and S2, irregular. Soft systolic murmur heard. ABDOMEN: Soft, nontender. EXTREMITIES: Shows 1+ edema in the right. Trace edema in the left. NEUROLOGIC: Awake, alert, oriented x3. Normal speech. LABORATORY TESTS: Baseline creatinine is 1.0, on admission creatinine was 2.71, most recent creatinine from this morning is 2.08. Sodium 137, potassium 4.0, calcium 7.6, phosphorus 2.2, magnesium 2.0. WBC count has gone up really high today and is up to 33,000, platelet count 195. Urine done at the time of admission showed lots of wbc's, leukocyte esterase, blood as well as trace protein. CT abdomen and pelvis done earlier today shows hepatic masses suspicious for metastatic disease, increasing bilateral pleural effusion, persistent bilateral hydronephrosis and hydroureter. ASSESSMENT AND PLAN: An 80-year-old male who presented with urosepsis with bacteremia associated with bilateral hydronephrosis from obstructive uropathy and had associated acute renal failure for which I have been consulted. Acute renal failure. Baseline creatinine is normal. At the time of admission at 2.7, which is considering the severity of his illness and obstructive uropathy, I am pleasantly surprised that it was not worse than that. Creatinine has not changed a whole lot in the last 3-4 days, which is to be expected. The patient is not dehydrated and should not be getting more IV fluid. In fact, he is quite fluid overloaded and needs to have Lasix. I would give him 1 dose of Lasix 80 mg IV x1. We cannot expect an 80-year-old kidney to recover promptly given multiple acute issues he has had in the last few days. Also, there is no guarantee that the kidney function will get back to the previous baseline given persistent bilateral hydronephrosis. Etiology of acute renal failure is combination of ATN in the setting of sepsis with bilateral hydronephrosis. Avoid nephrotoxic agent. Avoid NSAIDs. Avoid contrast agent. Continue daily labs.
[2020-03-09] MEDS ORDERED: LOPERAMIDE HCL 2 MG CAP PO PRN (16:09)
--- NOTE | 2020-03-09 16:11 | Hospitalist Progress Note ---
Date of Service March 09, 2020 Assessment & Plan (1) Septic shock: (1) Severe sepsis: secondary to -Patient presenting from home with reports of profound generalized weakness and an episode of rigors this morning -On presentation: BP 77/62, HR 153, afebrile, lactic acid 4.8 -Likely urinary source, possible prostatitis Blood cultures: E coli Urine culture: E coli had temp of 37.[address] abdomen/pelvis: possible Pneumonia, bibasilar added Doxy to Cefepime IV afebrile since this morning monitor closely (2) BRYAN (acute kidney injury): -Creatinine 2.7 (baseline 1.1) -Likely multifactorial due to postobstructive uropathy and sepsis -Fernandes placed in the ED crea improved from 2.7 to 1.9-2.0 (+) volume overload, in the setting of cardiomyopathy per Echo Nephrology consulted, IV Lasix ordered monitor Volume Overload, Cardiomyopathy Nephrology consulted, IV Lasix ordered monitor (3) Atrial fibrillation with RVR: -On presentation, patient in atrial fibrillation with RVR with rates in the 150s -New onset -Likely due to sepsis and/or hypokalemia -Trying to avoid beta-blockers and calcium channel blockers due to current hypotension -Inside Sales Territory Manager consulted - HR improving continue Cardizem drip continue Heparin drip (+) mild epistaxis- afrin spray applied to the right nostril , packed with small piece of gauze epistaxis resolved (4) Hypokalemia: -K+ 2.5, MG+ normal 2.0 -Replace, follow closely (5) Anemia: -Hgb 8.1 (10.9 11/2019)--> 7.7 -No obvious signs of bleeding -Underlying malignancy likely contributing -Check Hemoccult stools -no indication for transfusion at this time (6) Colon cancer: Follows with Dr. Maryanne Nicole with [facility] hematology/oncology in [place] and [facility] -History of resection, chemo, radiation; also with pelvic mets and possible RLL -10/2019 received re-irradiation [place] [facility] [place] poorly tolerated -visit with Dr. Nicole 01/2020 patient declined further treatments -CT scan suggesting metastatic hepatic disease - GI consulted Diarrhea - resolving (7) DVT prophylaxis: on Heparin drip Disposition pending will need PT/OT Admission and Anticipated Discharge Date Admission Date: March 06, 2020 Subjective ff up for Sepsis, UTI, Bacteremia; A fib; Acute Renal Failure seen resting in bed, comfortable not in distress events overnight noted states he feels ok today, just tired denies SOB, chest pain, palpitations, dizziness no abdominal pain, nausea/vomiting no recurrence of epistaxis no other symptoms Review of Systems Review of Systems: All systems reviewed & are unremarkable except as noted in HPI & below Physical Exam Physical Exam: General- oriented x 3, not in distress, speaks in sentences with no effort or accessory muscle use Eyes- anicteric Neck- no JVD Lungs- decreased breath sounds at the bases no wheezing or crackles Heart- normal rate, irregularly irregular rhythm; no murmurs Abdomen- normal bowel sounds, nondistended, soft, nontender Extremities- trace pretibial edema, no calf tenderness Neuro- alert, oriented x 3; no gross focal neurologic deficits Skin- warm & dry Results & Data Results & Data ([facility]) Vital Signs (Past 12 Hours) Vital Signs Temp Pulse Pulse Resp BP Pulse Ox 03/09/20 12:01 36.4 C L 113 H 19 113/65 97 03/09/20 08:00 36.5 C 103 H 22 96/64 L 96 03/09/20 06:00 113 H 03/09/20 04:13 128 H Laboratory Results Laboratory Results - last 24 hr 03/08/20 03/09/20 03/09/20 22:25 05:16 05:16 WBC 33.30 H* RBC 2.63 L Hgb 7.5 L Hct 22.5 L MCV 85.6 MCH 28.5 MCHC 33.3 RDW Std Deviation 54.5 H RDW Coeff of Shanita 17.8 H Plt Count 195 MPV 10.4 APTT PTT Ratio Sodium 137 137 Potassium 3.6 4.0 Chloride 105 107 Carbon Dioxide 20 L 22 Anion Gap 12.0 H 8.0 BUN 57 H 59 H Creatinine 2.20 H 2.08 H Est Cr Clr Drug Dosing 33.6 35.5 Est GFR ( Amer) 31.4 33.6 Est GFR (Non-Af Amer) 27.1 29.0 BUN/Creatinine Ratio 25.9 H 28.2 H Glucose 141 H 181 H Calcium 8.2 L 7.6 L Phosphorus 2.2 L Magnesium 1.8 2.0 03/09/20 05:16 WBC RBC Hgb Hct MCV MCH MCHC RDW Std Deviation RDW Coeff of Shanita Plt Count MPV APTT 65.5 H* PTT Ratio 2.3 Sodium Potassium Chloride Carbon Dioxide Anion Gap BUN Creatinine Est Cr Clr Drug Dosing Est GFR ( Amer) Est GFR (Non-Af Amer) BUN/Creatinine Ratio Glucose Calcium Phosphorus Magnesium
--- NOTE | 2020-03-09 17:27 | Cardiology Progress Note ---
Date of Service March 09, 2020 Assessment & Plan (1) Atrial fibrillation with RVR: He presented with atrial fibrillation with a rapid heart rate, the duration is uncertain. Based on his description of taking his pulse oximetry and blood pressure 2 or 3 days prior to admission and recalling that it was normal it is of relatively recent onset. Intravenous diltiazem has helped somewhat with rate control but his heart rate still remains somewhat fast. He has received additional digoxin. I am going to order digoxin level for the morning and leave him on his current medications for now. His heart rate control may be adequate for the time being. Admission and Anticipated Discharge Date Admission Date: March 06, 2020 Subjective He has no cardiovascular complaints. He remains unaware of his cardiac rhythm. No chest discomfort or shortness of breath. Physical Exam Physical Exam: Constitutional: Alert, cooperative and in no distress. HEENT: Unremarkable Neck: No jugular venous distention, carotid pulses are irregular but otherwise normal and equal bilaterally without bruits. Pulmonary: Clear to auscultation bilaterally. Cardiac: Irregular somewhat rapid rhythm with no murmur, gallop or rub. Abdomen: Soft, nontender with normal bowel sounds. Extremities: No edema. Distal pulses intact. Neurologic: No focal findings. Gait is steady. Skin: No rash, ecchymoses or petechiae. Results & Data ([facility]) Vital Signs (Past 12 Hours) Vital Signs Temp Pulse Resp BP Pulse Ox 03/09/20 16:12 36.7 C 119 H 20 110/65 96 03/09/20 12:01 36.4 C L 113 H 19 113/65 97 03/09/20 08:00 36.5 C 103 H 22 96/64 L 96 03/09/20 06:00 113 H Diagnostic Findings Coagulation 03/09/20 Range/Units 05:16 APTT 65.5 H* (21.0-31.0) Seconds CBC 03/09/20 Range/Units 05:16 WBC 33.30 H* (4.8-10.8) K/uL RBC 2.63 L (4.7-6.1) M/uL Hgb 7.5 L (14.0-18.0) g/dL Hct 22.5 L (42-52) % Plt Count 195 (130-400) K/uL Comprehensive Metabolic Panel 03/08/20 03/09/20 Range/Units 22:25 05:16 Sodium 137 137 (136-145) mmol/L Potassium 3.6 4.0 (3.5-5.1) mmol/L Chloride 105 107 (98-107) mmol/L Carbon Dioxide 20 L 22 (21-32) mmol/L BUN 57 H 59 H (7-18) mg/dl Creatinine 2.20 H 2.08 H (0.6-1.4) mg/dl Glucose 141 H 181 H (70-99) mg/dl Calcium 8.2 L 7.6 L (8.5-10.1) mg/dl Intake and Output 03/09/20 03/09/20 03/09/20 06:59 14:59 22:59 Intake Total 1666.533 / 5358.533 647.167 / 1121.467 474.3 / 1121.467 Output Total 352 / 1404 400 / 400 Balance 1314.533 / 3954.533 247.167 / 721.467 474.3 / 721.467 Intake: IV 1066.533 / 4018.533 167.167 / 641.467 474.3 / 641.467 Albumin 25% 50 ml @ 50 mls/hr 100 / 100 IV ONE ONE Rx#:[id number] Vibramycin 100 mg In D5 100 ml 110 / 110 @ 55 mls/hr IV Q12@0000,1200 [facility] Rx#:[id number] Albumin 25% 50 ml @ 54 mls/hr 52 / 52 IV ONE ONE with Lasix 20 mg Rx# :[id number] HEPARIN SODIUM/DEXTROSE 25,000 593.533 / 1093.533 42.167 / 406.467 364.3 / 406.467 units In 500 ml @ 2,300 UNITS/ HR 46 mls/hr IV .[id number] [facility] Rx #:[id number] Lr 1,000 ml @ 125 mls/hr IV . 0 / 2287.500 Q8H [facility] Rx#:[id number] MAGNESIUM SULFATE / D5W 1 gm In 100 / 100 100 ml @ 50 mls/hr IV ONE ONE Rx#:[id number] K RIDER / WTR 10 meq In 100 ml 100 / 200 @ 100 mls/hr IV Q1H [facility] Rx#: [id number] Cardizem 125 mg In D5 100 ml @ 121 / 185.500 125 / 125 10 MG/HR 10 mls/hr IV .[id number] [facility] Rx#:[id number] Oral 600 / 1340 480 / 480 Output: Urine Amount (Catheter) 350 / 1400 400 / 400 Fernandes/Indwelling 350 / 1400 400 / 400 # Bowel Movements 2 / 4 Other: Weight 102 kg Patient Weight 03/10/20 06:59 Weight 102 kg Telemetry: Atrial fibrillation, heart rate around 110 bpm on average PG Care Time/CCT Total # of Minutes Spent Total Time Spent with Patient: Total time spent is greater than 50% in coordination of care (as documented) at patient's floor/unit and/or counseling patient: Coding Level of Care Code 50532 Subseq Hosp Care Lvl 2 Diagnoses Atrial fibrillation with RVR I48.91
[2020-03-09] MEDS: TAMSULOSIN HCL 0.4 MG CAP PO SCH (21:32)
[2020-03-10] MEDS: CEFEPIME 2,000 MG in SYRINGE 7.5 ML IV SCH ×3 (00:19→23:46)
[2020-03-10] MEDS: DOXYCYCLINE HYCLATE 100 MG in DEXTROSE 5% 100 ML IV SCH ×3 (00:19→23:46)
[2020-03-10] MEDS: HEPARIN SODIUM/DEXTROSE 25,000 UNITS/500 ML BAG IV SCH ×3 (02:52→23:58)
[2020-03-10 06:02] LABS: Partial Thromboplastin Time 55.5 Seconds (21.0-31.0)
[2020-03-10 06:03] LABS: BUN Creatinine Ratio 29.1 (10-20); Calcium 7.7 mg/dl (8.5-10.1); Creatinine Clr Calc Pharmacy 33.9 ml/min; Est GFR (African American) 31.7; Est GFR (Non-African American) 27.4; Magnesium 1.9 mg/dl (1.8-2.4); Phosphorus 2.1 mg/dl (2.5-4.9); Potassium 3.6 mmol/L (3.5-5.1)
[2020-03-10 09:31] LABS: Hematocrit (blood only) 23.8 % (42-52); Hemoglobin 7.8 g/dL (14.0-18.0); Mean Corpuscular Hemoglobin 28.2 pg (25-34); Mean Corpuscular Hgb Conc 32.8 g/dL (32-36); Mean Corpuscular Volume 85.9 fL (80-100); Mean Platelet Volume 10.6 fL (7.4-10.4); Platelet Count 198 K/uL (130-400); RDW Standard Deviation 56.3 fL (36.4-46.3); Red Blood Count 2.77 M/uL (4.7-6.1); White Blood Count 19.72 K/uL (4.8-10.8)
[2020-03-10 09:35] LABS: Anisocytosis Present; Basophils # (auto) 0.01 K/uL (0-0.2); Basophils % (auto) 0.1 %; Eosinophils # (auto) 0.02 K/uL (0-0.5); Eosinophils % (auto) 0.1 %; Immature Granulocytes # (auto) 0.11 K/uL (0.00-0.02); Immature Granulocytes % (auto) 0.6 %; Lymphocytes % (auto) 6.6 %; Monocytes # (auto) 0.79 K/uL (0.11-0.59); Neutrophils # (auto) 17.49 K/uL (1.4-6.5); Neutrophils % (auto) 88.6 %
[2020-03-10] MEDS: dilTIAZem HCL 125 MG in DEXTROSE 5% 100 ML IV SCH (10:09)
--- NOTE | 2020-03-10 11:02 | Cardiology Progress Note ---
Date of Service March 10, 2020 Assessment & Plan (1) Atrial fibrillation with RVR: He presented with atrial fibrillation with a rapid heart rate, the duration is uncertain. Based on his description of taking his pulse oximetry and blood pressure 2 or 3 days prior to admission and recalling that it was normal it is of relatively recent onset. Intravenous diltiazem has helped somewhat with rate control but his heart rate still remained somewhat fast. He received additional digoxin and his heart rate is better, his digoxin level was 1.4 today but his heart rate still remains somewhat fast. His heart rate control may be adequate for the time being however he may be having side effects from digoxin. With his renal insufficiency it will take some time for his level to drop, I would not use Digibind. I am going to switch his diltiazem to oral today, he is on 10 mg/h (240 mg daily), I will switch him to 300 mg daily starting this morning. He may need additional rate control as his digoxin wears off. (2) Nausea: His nausea could be due to digoxin, it certainly can have that side effect. Clinically I found little difficulty with nausea at therapeutic levels, but 1.4 was a little bit higher than we normally like it and it can cause a norexia at those levels so I would be surprised if this is the case. Digibind probably would eliminate the side effects since it finds digoxin (I must have never used it for that indication) but I would not do it for 2 reasons, one is that it is not indicated for side effects and the other is he may have difficulty with heart rate control and we can manage that more easily as the digoxin gradually is eliminated. Admission and Anticipated Discharge Date Admission Date: March 06, 2020 Subjective He is having difficulty with nausea this morning. He researched it a bit and feels it is the digoxin. He tells me he has not had nausea before, that is a new symptom since this admission and just over the last day or 2. Otherwise he is feeling well and has no cardiovascular complaints. Physical Exam Physical Exam: Constitutional: Alert, cooperative and in no distress. HEENT: Unremarkable Neck: No jugular venous distention, carotid pulses are irregular but otherwise normal and equal bilaterally without bruits. Pulmonary: Clear to auscultation bilaterally. Cardiac: Irregular somewhat rapid rhythm with no murmur, gallop or rub. Abdomen: Soft, nontender with normal bowel sounds. Extremities: No edema. Distal pulses intact. Neurologic: No focal findings. Gait is steady. Skin: No rash, ecchymoses or petechiae. Results & Data ([facility]) Vital Signs (Past 12 Hours) Vital Signs Temp Pulse Pulse Resp BP Pulse Ox 03/10/20 07:51 36.6 C 109 H 19 136/73 97 03/10/20 03:09 36.9 C 103 H 16 119/78 93 03/10/20 00:00 111 H 03/09/20 22:56 36.9 C 96 H 16 110/66 94 Laboratory Results Coagulation 03/10/20 Range/Units 05:24 APTT 55.5 H* (21.0-31.0) Seconds CBC 03/10/20 Range/Units 05:29 WBC 19.72 H (4.8-10.8) K/uL RBC 2.77 L (4.7-6.1) M/uL Hgb 7.8 L (14.0-18.0) g/dL Hct 23.8 L (42-52) % Plt Count 198 (130-400) K/uL Neut # (Auto) 17.49 H (1.4-6.5) K/uL Lymph # (Auto) 1.30 (1.2-3.4) K/uL [place] # (Auto) 0.79 H (0.11-0.59) K/uL Eos # (Auto) 0.02 (0-0.5) K/uL Baso # (Auto) 0.01 (0-0.2) K/uL Comprehensive Metabolic Panel 03/10/20 Range/Units 05:24 Sodium 138 (136-145) mmol/L Potassium 3.6 (3.5-5.1) mmol/L Chloride 105 (98-107) mmol/L Carbon Dioxide 25 (21-32) mmol/L BUN 63 H (7-18) mg/dl Creatinine 2.18 H (0.6-1.4) mg/dl Glucose 162 H (70-99) mg/dl Calcium 7.7 L (8.5-10.1) mg/dl Intake and Output 03/09/20 03/10/20 03/10/20 22:59 06:59 14:59 Intake Total 1144.767 / 2523.834 731.900 / 2523.834 36.833 / 36.833 Output Total 1000 / 3001 1601 / 3001 Balance 144.767 / -477.166 -869.100 / -477.166 36.833 / 36.833 Intake: IV 744.767 / 1643.834 731.900 / 1643.834 36.833 / 36.833 Vibramycin 100 mg In D5 100 ml 110 / 220 110 / 220 @ 55 mls/hr IV Q12@0000,1200 [facility] Rx#:[id number] HEPARIN SODIUM/DEXTROSE 25,000 512.267 / 1088.167 533.733 / 1088.167 units In 500 ml @ 2,300 UNITS/ HR 46 mls/hr IV .[id number] [facility] Rx #:[id number] Cardizem 125 mg In D5 100 ml @ 122.5 / 335.667 88.167 / 335.667 36.833 / 36.833 10 MG/HR 10 mls/hr IV .[id number] [facility] Rx#:[id number] Oral 400 / 880 Output: Urine Amount (Catheter) 1000 / 3000 1600 / 3000 Fernandes/Indwelling 1000 / 3000 1600 / 3000 # Bowel Movements 1 / Other: # Bowel Movement Diapers 1 Digoxin level today is 1.4. Diagnostic Findings Telemetry: Atrial fibrillation, heart rate varying from 100-120, improved compared to yesterday. PG Care Time/CCT Total # of Minutes Spent Total Time Spent with Patient: Total time spent is greater than 50% in coordination of care (as documented) at patient's floor/unit and/or counseling patient: Coding Level of Care Code 21278 Subseq Hosp Care Lvl 3 Diagnoses Atrial fibrillation with RVR I48.91 Nausea R11.0
[2020-03-10] MEDS: dilTIAZem HCL 300 MG CAPCR PO SCH (11:20)
--- NOTE | 2020-03-10 15:44 | Progress Notes ---
DATE: 03/10/2020 NEPHROLOGY PROGRESS NOTE SUBJECTIVE: No new issues overnight, he feels better. PHYSICAL EXAMINATION: VITAL SIGNS: Blood pressure is 118/71; pulse rate 114, irregular; 96% on room air; temperature 36.6. HEENT: Mucous membrane is moist. NECK: Supple. CHEST: Bilateral decreased breath sound. CARDIOVASCULAR: S1, S2 irregular. Soft systolic murmur heard. ABDOMEN: Soft, nontender. EXTREMITIES: Show 1+ edema in the right, trace in the left, pitting type. LABORATORY TESTS: From today was reviewed in detail. White blood cell count has come down to 20,000 from 33,000 yesterday, platelet count 198, hemoglobin 7.8. Creatinine is 2.18. Sodium 138, potassium 3.6. ASSESSMENT AND PLAN: An 80-year-old male who presented with urosepsis with bacteremia associated with bilateral hydronephrosis from obstructive uropathy and had associated acute renal failure for which I have been consulted. 1. Acute renal failure: At baseline, his creatinine is near normal at around 1.1. At the time of admission, he had 2.7, which considering the severity of his illness and obstructive uropathy is actually better than expected. Creatinine has gone down a little bit in the last few days and is now settled at around low 2s. The patient is not dehydrated and should not be getting more IV fluid. He is fluid overloaded and needs 1 more dose of Lasix at least. He will have a fairly slow renal recovery in the coming days. 2. Anemia related with sepsis and renal failure: Consider blood transfusion if it gets below 7. Given concern about malignancy, I would like to avoid giving Procrit.
[2020-03-10] MEDS ORDERED: FUROSEMIDE 80 MG in SYRINGE 0 ML IV ONE (15:45)
[2020-03-10] MEDS: METOPROLOL TARTRATE 1 MG/ML VIAL IV PRN (18:36)
--- NOTE | 2020-03-10 21:28 | Hospitalist Progress Note ---
Date of Service March 10, 2020 Assessment & Plan (1) Septic shock: (1) Severe sepsis: secondary to -Patient presenting from home with reports of profound generalized weakness and an episode of rigors this morning -On presentation: BP 77/62, HR 153, afebrile, lactic acid 4.8 -Likely urinary source, possible prostatitis Blood cultures: E coli Urine culture: E coli CT abdomen/pelvis: possible Pneumonia, bibasilar added Doxy to Cefepime IV afebrile since yesterday WBC improving monitor closely (2) BRYAN (acute kidney injury): -Creatinine 2.7 (baseline 1.1) -Likely multifactorial due to postobstructive uropathy and sepsis -Fernandes placed in the ED crea improved from 2.7 to 1.9-2.1 (+) volume overload, in the setting of cardiomyopathy per [facility] Nephrology consulted, IV Lasix ordered monitor Volume Overload, Cardiomyopathy Nephrology consulted, IV Lasix ordered monitor (3) Atrial fibrillation with RVR: -On presentation, patient in atrial fibrillation with RVR with rates in the 150s -New onset -Likely due to sepsis and/or hypokalemia -Trying to avoid beta-blockers and calcium channel blockers due to current hypotension -Perishable Fruit Inspector consulted - HR improving transitioned from Cardizem drip to PO continue Heparin drip (+) mild epistaxis- afrin spray applied to the right nostril , packed with small piece of gauze epistaxis resolved (4) Hypokalemia: -K+ 2.5, MG+ normal 2.0 -Replace, follow closely (5) Anemia: -Hgb 8.1 (10.9 11/2019)--> 7.7 -No obvious signs of bleeding -Underlying malignancy likely contributing -Check Hemoccult stools -no indication for transfusion at this time (6) Colon cancer: Follows with Dr. Maryanne Nicole with [facility] hematology/oncology in [place] and [facility] -History of resection, chemo, radiation; also with pelvic mets and possible RLL -10/2019 received re[place]irradiation and Xelda [place] [facility] - poorly tolerated -visit with Dr. Nicole 01/2020 patient declined further treatments -CT scan suggesting metastatic hepatic disease - GI consulted Diarrhea - resolving (7) DVT prophylaxis: on Heparin drip Disposition pending will need PT/OT Admission and Anticipated Discharge Date Admission Date: March 06, 2020 Subjective ff up for sepsis, E coli UTI and bacteremia, A fib, acute renal failure seen resting in bed, comfortable sleeping but easily awakened states he feels tired today, did not sleep well overnight due to anxiety otherwise breathing is improved no cough, sputum, chills diarrhea improving no other symptoms Review of Systems Review of Systems: All systems reviewed & are unremarkable except as noted in HPI & below Physical Exam Physical Exam: General- oriented x 3, not in distress, speaks in sentences with no effort or accessory muscle use Eyes- anicteric Neck- no JVD Lungs- mildly decreased breath sounds bilateral bases Heart- normal rate, irregularly irregular rhythm; no murmurs Abdomen- normal bowel sounds, nondistended, soft, nontender Extremities-mild pretibial edema, no calf tenderness Neuro- alert, oriented x 3; no gross focal neurologic deficits Skin- warm & dry Results & Data Results & Data ([facility]) Vital Signs (Past 12 Hours) Vital Signs Temp Pulse Pulse Resp BP BP Pulse Ox 03/10/20 19:43 37.1 C 113 H 20 137/75 95 03/10/20 18:36 123 H 147/72 H 03/10/20 18:31 122 H 147/72 H 03/10/20 17:00 122 H 03/10/20 15:31 36.5 C 111 H 22 129/73 96 03/10/20 11:10 36.6 C 114 H 19 118/71 96 Laboratory Results Laboratory Results - last 24 hr 03/10/20 03/10/20 03/10/20 05:24 05:24 05:24 WBC RBC Hgb Hct MCV MCH MCHC RDW Std Deviation RDW Coeff of Shanita Plt Count MPV Immature Gran % (Auto) Neut % (Auto) Lymph % (Auto) [place] % (Auto) Eos % (Auto) Baso % (Auto) Neut # (Auto) Lymph # (Auto) [place] # (Auto) Eos # (Auto) Baso # (Auto) Immature Gran # (Auto) Anisocytosis APTT 55.5 H* PTT Ratio 2.0 Sodium 138 Potassium 3.6 Chloride 105 Carbon Dioxide 25 Anion Gap 8.0 BUN 63 H Creatinine 2.18 H Est Cr Clr Drug Dosing 33.9 Est GFR ( Amer) 31.7 Est GFR (Non-Af Amer) 27.4 BUN/Creatinine Ratio 29.1 H Glucose 162 H Calcium 7.7 L Phosphorus 2.1 L Magnesium 1.9 Digoxin 1.4 03/10/20 05:29 WBC 19.72 H RBC 2.77 L Hgb 7.8 L Hct 23.8 L MCV 85.9 MCH 28.2 MCHC 32.8 RDW Std Deviation 56.3 H RDW Coeff of Shanita 18.0 H Plt Count 198 MPV 10.6 H Immature Gran % (Auto) 0.6 Neut % (Auto) 88.6 Lymph % (Auto) 6.6 Andrews % (Auto) 4.0 Eos % (Auto) 0.1 Baso % (Auto) 0.1 Neut # (Auto) 17.49 H Lymph # (Auto) 1.30 Andrews # (Auto) 0.79 H Eos # (Auto) 0.02 Baso # (Auto) 0.01 Immature Gran # (Auto) 0.11 H Anisocytosis Present APTT PTT Ratio Sodium Potassium Chloride Carbon Dioxide Anion Gap BUN Creatinine Est Cr Clr Drug Dosing Est GFR ( Amer) Est GFR (Non-Af Amer) BUN/Creatinine Ratio Glucose Calcium Phosphorus Magnesium Digoxin
[2020-03-10] MEDS: TAMSULOSIN HCL 0.4 MG CAP PO SCH (21:47)
[2020-03-11] MEDS: METOPROLOL TARTRATE 1 MG/ML VIAL IV PRN (05:17)
[2020-03-11 06:04] LABS: Hematocrit (blood only) 23.3 % (42-52); Hemoglobin 7.9 g/dL (14.0-18.0); Mean Corpuscular Hemoglobin 29.4 pg (25-34); Mean Corpuscular Hgb Conc 33.9 g/dL (32-36); Mean Corpuscular Volume 86.6 fL (80-100); Mean Platelet Volume 10.7 fL (7.4-10.4); Platelet Count 166 K/uL (130-400); RDW Coefficient of Variation 18.2 % (11.5-14.5); RDW Standard Deviation 55.6 fL (36.4-46.3); Red Blood Count 2.69 M/uL (4.7-6.1); White Blood Count 20.35 K/uL (4.8-10.8)
[2020-03-11 06:23] LABS: Partial Thromboplastin Ratio 2.1
[2020-03-11 06:27] LABS: Basophils # (auto) 0.01 K/uL (0-0.2); Dohle Bodies 1+; Echinocytes 1+; Immature Granulocytes % (auto) 2.5 %; Lymphocytes # (auto) 0.21 K/uL (1.2-3.4); Monocytes # (auto) 0.42 K/uL (0.11-0.59); Monocytes % (auto) 2.1 %; Neutrophils # (auto) 19.21 K/uL (1.4-6.5); Neutrophils % (auto) 94.4 %; Toxic Vacuolation 1+
[2020-03-11 06:30] LABS: Partial Thromboplastin Time 57.8 Seconds (21.0-31.0)
[2020-03-11 06:42] LABS: BUN Creatinine Ratio 28.6 (10-20); Calcium 7.8 mg/dl (8.5-10.1); Creatinine Clr Calc Pharmacy 34.3 ml/min; Est GFR (African American) 32.3; Est GFR (Non-African American) 27.9; Magnesium 1.7 mg/dl (1.8-2.4); Phosphorus 2.4 mg/dl (2.5-4.9); Potassium 2.8 mmol/L (3.5-5.1)
[2020-03-11] MEDS: dilTIAZem HCL 300 MG CAPCR PO SCH (07:41)
[2020-03-11] MEDS ORDERED: POTASSIUM CHLORIDE 20 MEQ TABCR PO SCH (09:15)
[2020-03-11] MEDS: POT PHOSPHATE MONOBASIC W/ SOD TAB PO SCH ×4 (09:42→20:38)
[2020-03-11] MEDS: MAGNESIUM OXIDE 400 MG TAB PO SCH ×2 (09:44→20:37)
[2020-03-11] MEDS: HEPARIN SODIUM/DEXTROSE 25,000 UNITS/500 ML BAG IV SCH ×2 (12:01→22:21)
[2020-03-11] MEDS: DOXYCYCLINE HYCLATE 100 MG in DEXTROSE 5% 100 ML IV SCH (12:08)
[2020-03-11] MEDS: CEFEPIME 2,000 MG in SYRINGE 7.5 ML IV SCH (12:08)
--- NOTE | 2020-03-11 13:21 | XCELERA ---
[id number]
[2020-03-11] MEDS: LORazepam 0.5 MG TAB PO PRN ×3 (14:52→22:22)
[2020-03-11] MEDS ORDERED: FUROSEMIDE 40 MG in SYRINGE 0 ML IV ONE (18:47)
[2020-03-11] MEDS ORDERED: [UNRECOGNIZED DRUG - REMARK] PRN (18:53)
--- NOTE | 2020-03-11 19:34 | Hospitalist Progress Note ---
Date of Service March 11, 2020 Assessment & Plan (1) Septic shock: (1) Severe sepsis: secondary to -Patient presenting from home with reports of profound generalized weakness and an episode of rigors this morning -On presentation: BP 77/62, HR 153, afebrile, lactic acid 4.8 -Likely urinary source, possible prostatitis Blood cultures: E coli Urine culture: E coli afebrile since yesterday WBC improving monitor closely CT abdomen/pelvis: possible Pneumonia, bibasilar added Doxy to Cefepime IV--> per family, patient noted to have some tremors after Cefepime IV was completed change Cefepime to Ceftriaxone continue Doxy (2) BRYAN (acute kidney injury): -Creatinine 2.7 (baseline 1.1) -Likely multifactorial due to postobstructive uropathy and sepsis -Fernandes placed in the ED crea improved from 2.7 to 2.1 (+) volume overload, in the setting of cardiomyopathy per [facility] Nephrology consulted, IV Lasix ordered diuresing well hold off Lasix today in light of marginal BP monitor Volume Overload, Cardiomyopathy Nephrology consulted, IV Lasix ordered diuresing well hold off Lasix today in light of marginal BP monitor (3) Atrial fibrillation with RVR: -On presentation, patient in atrial fibrillation with RVR with rates in the 150s -New onset -Likely due to sepsis and/or hypokalemia -Trying to avoid beta-blockers and calcium channel blockers due to current hypotension -Oleomargarine Maker consulted - HR improving transitioned from Cardizem drip to PO Heparin drip discussed with Oleomargarine Maker Dr. Castro (+) mild epistaxis- afrin spray applied to the right nostril , packed with small piece of gauze epistaxis resolved (4) Hypokalemia, Mg, Phos -K+ 2.5, MG+ normal 2.0 -Replace K, Mg, Phos (5) Anemia: -Hgb 8.1 (10.9 11/2019)--> 7.7 -No obvious signs of bleeding -Underlying malignancy likely contributing -Check Hemoccult stools -no indication for transfusion at this time (6) Colon cancer: Follows with Dr. Maryanne Nicole with [facility] hematology/oncology in [place] and [facility] -History of resection, chemo, radiation; also with pelvic mets and possible RLL -10/2019 received re-irradiation and Xelda at [facility] [place] - poorly tolerated -visit with Dr. Nicole 01/2020 patient declined further treatments -CT scan suggesting metastatic hepatic disease - GI consulted: will need outpatient Colonoscopy Will need ff up with Oncologist Diarrhea likely from Radiation Therapy - resolving (7) DVT prophylaxis: on Heparin drip Disposition pending will need PT/OT Admission and Anticipated Discharge Date Admission Date: March 06, 2020 Subjective ff up for sepsis, bacteremia, uti, a fib, acute renal failure patient did not sleep well again last night having tremors, anxiety seen resting in bed, comfortable states he feels about the same as yesterday breathing is better, no cough, no sputum, no chest pain, palpitations, dizziness no diarrhea no other symptoms Review of Systems Review of Systems: All systems reviewed & are unremarkable except as noted in HPI & below Physical Exam Physical Exam: General- oriented x 3, not in distress, speaks in sentences with no effort or accessory muscle use Eyes- anicteric Neck- no JVD Lungs-very faint rales at the bases no wheezing Heart- normal rate, irregularly irregular rhythm; no murmurs Abdomen- normal bowel sounds, nondistended, soft, nontender Extremities- mild pretibial edema, no calf tenderness Neuro- alert, oriented x 3; no gross focal neurologic deficits Skin- warm & dry Results & Data Results & Data ([facility]) Vital Signs (Past 12 Hours) Vital Signs Temp Pulse Resp BP BP Pulse Ox 03/11/20 18:51 37.0 C 120 H 28 H 125/74 94 03/11/20 11:42 37 C 107 H 18 96/56 L 95 03/11/20 07:52 36.7 C 112 H 20 111/60 96 Laboratory Results Laboratory Results - last 24 hr 03/11/20 03/11/20 03/11/20 05:26 05:26 05:26 WBC 20.35 H RBC 2.69 L Hgb 7.9 L Hct 23.3 L MCV 86.6 MCH 29.4 MCHC 33.9 RDW Std Deviation 55.6 H RDW Coeff of Shanita 18.2 H Plt Count 166 MPV 10.7 H Immature Gran % (Auto) 2.5 Neut % (Auto) 94.4 Lymph % (Auto) 1.0 [place] % (Auto) 2.1 Eos % (Auto) 0.0 Baso % (Auto) 0.0 Neut # (Auto) 19.21 H Lymph # (Auto) 0.21 L [place] # (Auto) 0.42 Eos # (Auto) 0.00 Baso # (Auto) 0.01 Immature Gran # (Auto) 0.50 H Toxic Vacuolation 1+ Dohle Bodies 1+ Echinocytes 1+ APTT 57.8 H* PTT Ratio 2.1 Sodium 138 Potassium 2.8 L D Chloride 104 Carbon Dioxide 25 Anion Gap 9.0 BUN 61 H Creatinine 2.15 H Est Cr Clr Drug Dosing 34.3 Est GFR ( Amer) 32.3 Est GFR (Non-Af Amer) 27.9 BUN/Creatinine Ratio 28.6 H Glucose 153 H Calcium 7.8 L Phosphorus 2.4 L Magnesium 1.7 L Digoxin 03/11/20 09:48 WBC RBC Hgb Hct MCV MCH MCHC RDW Std Deviation RDW Coeff of Shanita Plt Count MPV Immature Gran % (Auto) Neut % (Auto) Lymph % (Auto) [place] % (Auto) Eos % (Auto) Baso % (Auto) Neut # (Auto) Lymph # (Auto) [place] # (Auto) Eos # (Auto) Baso # (Auto) Immature Gran # (Auto) Toxic Vacuolation Dohle Bodies Echinocytes APTT PTT Ratio Sodium Potassium Chloride Carbon Dioxide Anion Gap BUN Creatinine Est Cr Clr Drug Dosing Est GFR ( Amer) Est GFR (Non-Af Amer) BUN/Creatinine Ratio Glucose Calcium Phosphorus Magnesium Digoxin 1.1
[2020-03-11] MEDS: POTASSIUM CHLORIDE 20 MEQ TABCR PO SCH (20:37)
[2020-03-11] MEDS: TAMSULOSIN HCL 0.4 MG CAP PO SCH (20:37)
[2020-03-11] MEDS: cefTRIAXone SODIUM 2,000 MG in DEXTROSE 5% 50 ML IV SCH (20:38)
[2020-03-11] MEDS ORDERED: POTASSIUM CHLORIDE PWD 20 MEQ PACK PO SCH (21:00)
[2020-03-12 05:51] LABS: Eosinophils # (auto) 0.01 K/uL (0-0.5); Eosinophils % (auto) 0.1 %; Hematocrit (blood only) 22.3 % (42-52); Hemoglobin 7.4 g/dL (14.0-18.0); Immature Granulocytes # (auto) 0.03 K/uL (0.00-0.02); Immature Granulocytes % (auto) 0.3 %; Lymphocytes # (auto) 1.13 K/uL (1.2-3.4); Lymphocytes % (auto) 9.4 %; Mean Corpuscular Hgb Conc 33.2 g/dL (32-36); Mean Corpuscular Volume 84.5 fL (80-100); Mean Platelet Volume 10.9 fL (7.4-10.4); Monocytes # (auto) 0.39 K/uL (0.11-0.59); Monocytes % (auto) 3.3 %; Neutrophils # (auto) 10.42 K/uL (1.4-6.5); Neutrophils % (auto) 86.9 %; Platelet Count 131 K/uL (130-400); RDW Coefficient of Variation 18.3 % (11.5-14.5); RDW Standard Deviation 55.6 fL (36.4-46.3); Red Blood Count 2.64 M/uL (4.7-6.1); White Blood Count 11.98 K/uL (4.8-10.8)
[2020-03-12 06:26] LABS: Dohle Bodies 1+; Ovalocytes 1+; Toxic Vacuolation 1+
[2020-03-12 07:48] LABS: Partial Thromboplastin Ratio 1.8
[2020-03-12 07:59] LABS: BUN Creatinine Ratio 27.1 (10-20); Calcium 7.8 mg/dl (8.5-10.1); Creatinine Clr Calc Pharmacy 36.6 ml/min; Est GFR (African American) 34.8; Magnesium 1.9 mg/dl (1.8-2.4); Phosphorus 3.4 mg/dl (2.5-4.9); Potassium 3.4 mmol/L (3.5-5.1)
[2020-03-12] MEDS: POTASSIUM CHLORIDE 20 MEQ TABCR PO SCH (09:31)
[2020-03-12] MEDS: POT PHOSPHATE MONOBASIC W/ SOD TAB PO SCH (09:31)
[2020-03-12] MEDS: dilTIAZem HCL 300 MG CAPCR PO SCH (09:31)
[2020-03-12] MEDS: MAGNESIUM OXIDE 400 MG TAB PO SCH (09:31)
[2020-03-12] MEDS: HEPARIN SODIUM/DEXTROSE 25,000 UNITS/500 ML BAG IV SCH ×2 (09:39→20:19)
[2020-03-12] MEDS ORDERED: FUROSEMIDE 40 MG in SYRINGE 0 ML IV ONE (17:30)
--- NOTE | 2020-03-12 17:38 | Hospitalist Progress Note ---
Date of Service March 12, 2020 Assessment & Plan (1) Septic shock: Severe sepsis: secondary to E coli Bacteremia, UTI -Patient presenting from home with reports of profound generalized weakness and an episode of rigors this morning -On presentation: BP 77/62, HR 153, afebrile, lactic acid 4.8 -Likely urinary source, possible prostatitis Blood cultures: E coli Urine culture: E coli repeat blood cultures: pending afebrile since yesterday WBC improving monitor closely CT abdomen/pelvis: possible Pneumonia? bibasilar added Doxy to Cefepime IV--> per family, patient noted to have some tremors after Cefepime IV and Doxycycline IV completed transitioned to Ceftriaxone IV, tolerating well monitor Delirium likely multifactorial: Ativan, Sepsis, Acute Renal Failure will try to limit Ativan, will also reduce the dose monitor BRYAN (acute kidney injury): -Creatinine 2.7 (baseline 1.1) -Likely multifactorial due to postobstructive uropathy and sepsis -Fernandes placed in the ED crea improved from 2.7 to 2.0 (+) volume overload, in the setting of cardiomyopathy per Echo Nephrology consulted, IV Lasix ordered diuresing well 1 dose of IV Lasix ordered today monitor Volume Overload, secondary to Cardiomyopathy, in the Setting of Acute Renal Failure repeat Echo: EF fraction improved to 50-55%, no regional wall motion abnormalities Nephrology consulted, IV Lasix ordered diuresing well management of Lasix as noted above Atrial fibrillation with RVR: -On presentation, patient in atrial fibrillation with RVR with rates in the 150s -New onset -Likely due to sepsis and/or hypokalemia -Technology Education Instructor consulted discussed with Technology Education Instructor Dr. Castro add Metoprolol 25mg BID to Cardizem po for better BP control, then wean off Cardizem continue Heparin drip (+) mild epistaxis- afrin spray applied to the right nostril , packed with small piece of gauze epistaxis resolved Hypokalemia, Mg, Phos -K+ 2.5, MG+ normal 2.0 -Replace K, Mg, Phos Anemia: -Hgb 8.1 (10.9 11/2019)--> 7.7 -No obvious signs of bleeding -Underlying malignancy likely contributing -Check Hemoccult stools -no indication for transfusion at this time - check anemia panel Colon cancer: Follows with Dr. Maryanne Nicole with [facility] hematology/oncology in [place] and [facility] -History of resection, chemo, radiation; also with pelvic mets and possible RLL -10/2019 [place] [facility] [place] poorly [place]visit with Dr. Nicole 01/2020 patient declined further treatments -CT scan suggesting metastatic hepatic disease - GI consulted: will need outpatient Colonoscopy Will need ff up with Oncologist Diarrhea likely from Radiation Therapy - resolved - C diff gene positive But toxin negative DVT prophylaxis: on Heparin drip Disposition pending will need PT/OT Admission and Anticipated Discharge Date Admission Date: March 06, 2020 Subjective ff up for sepsis, acute renal failure, etc. resting in chair family visiting at bedside reports he had a good night sleep but was disoriented early in the AM, resolved now feels improved compared to previous day strength is better no shortness of breath, cough, sputum, fever/chills no diarrhea no chest pain no other symptoms Review of Systems Review of Systems: All systems reviewed & are unremarkable except as noted in HPI & below Physical Exam Physical Exam: General- oriented x 3, not in distress, speaks in sentences with no effort or accessory muscle use Eyes- anicteric Neck- no JVD Lungs- mild rales left base no wheezing Heart- HR low 100s, irregularly irregular rhythm; no murmurs Abdomen- normal bowel sounds, nondistended, soft, nontender Extremities- grade 1 lower leg pretibial edema, no calf tenderness Neuro- alert, oriented x 3; no gross focal neurologic deficits Skin- warm & dry Results & Data Results & Data ([facility]) Vital Signs (Past 12 Hours) Vital Signs Temp Pulse Resp BP Pulse Ox 03/12/20 15:13 37 C 122 H 18 111/68 92 03/12/20 11:50 36.9 C 110 H 20 118/63 96 03/12/20 08:29 36.8 C 120 H 20 122/69 95 Laboratory Results Laboratory Results - last 24 hr 03/12/20 03/12/20 03/12/20 05:20 05:20 06:52 WBC 11.98 H RBC 2.64 L Hgb 7.4 L Hct 22.3 L MCV 84.5 MCH 28.0 MCHC 33.2 RDW Std Deviation 55.6 H RDW Coeff of Shanita 18.3 H Plt Count 131 MPV 10.9 H Immature Gran % (Auto) 0.3 Neut % (Auto) 86.9 Lymph % (Auto) 9.4 [place] % (Auto) 3.3 Eos % (Auto) 0.1 Baso % (Auto) 0.0 Neut # (Auto) 10.42 H Lymph # (Auto) 1.13 L [place] # (Auto) 0.39 Eos # (Auto) 0.01 Baso # (Auto) 0.00 Immature Gran # (Auto) 0.03 H Toxic Vacuolation 1+ Dohle Bodies 1+ Ovalocytes 1+ APTT 50.0 H* PTT Ratio 1.8 Sodium Cancelled Potassium Cancelled Chloride Cancelled Carbon Dioxide Cancelled Anion Gap Cancelled BUN Cancelled Creatinine Cancelled Est Cr Clr Drug Dosing Cancelled Est GFR ( Amer) Cancelled Est GFR (Non-Af Amer) Cancelled BUN/Creatinine Ratio Cancelled Glucose Cancelled Calcium Cancelled Phosphorus Cancelled Magnesium Cancelled 03/12/20 06:52 WBC RBC Hgb Hct MCV MCH MCHC RDW Std Deviation RDW Coeff of Shanita Plt Count MPV Immature Gran % (Auto) Neut % (Auto) Lymph % (Auto) [place] % (Auto) Eos % (Auto) Baso % (Auto) Neut # (Auto) Lymph # (Auto) [place] # (Auto) Eos # (Auto) Baso # (Auto) Immature Gran # (Auto) Toxic Vacuolation Dohle Bodies Ovalocytes APTT PTT Ratio Sodium 137 Potassium 3.4 L D Chloride 103 Carbon Dioxide 27 Anion Gap 7.0 BUN 55 H Creatinine 2.02 H Est Cr Clr Drug Dosing 36.6 Est GFR ( Amer) 34.8 Est GFR (Non-Af Amer) 30.0 BUN/Creatinine Ratio 27.1 H Glucose 156 H Calcium 7.8 L Phosphorus 3.4 D Magnesium 1.9
[2020-03-12] MEDS: METOPROLOL TARTRATE 25 MG TAB PO SCH (17:57)
[2020-03-12] MEDS: FUROSEMIDE 20 MG in SYRINGE 0 ML IV ONE ×2 (17:57→18:07)
[2020-03-12] MEDS: cefTRIAXone SODIUM 2,000 MG in DEXTROSE 5% 50 ML IV SCH (20:26)
[2020-03-12] MEDS: TAMSULOSIN HCL 0.4 MG CAP PO SCH (20:26)
[2020-03-13] MEDS: HEPARIN SODIUM/DEXTROSE 25,000 UNITS/500 ML BAG IV SCH ×2 (06:34→17:00)
[2020-03-13 07:56] LABS: Eosinophils # (auto) 0.01 K/uL (0-0.5); Eosinophils % (auto) 0.1 %; Hematocrit (blood only) 22.2 % (42-52); Hemoglobin 7.2 g/dL (14.0-18.0); Immature Granulocytes # (auto) 0.04 K/uL (0.00-0.02); Immature Granulocytes % (auto) 0.3 %; Lymphocytes # (auto) 0.91 K/uL (1.2-3.4); Lymphocytes % (auto) 7.6 %; Mean Corpuscular Hemoglobin 27.8 pg (25-34); Mean Corpuscular Hgb Conc 32.4 g/dL (32-36); Mean Corpuscular Volume 85.7 fL (80-100); Mean Platelet Volume 10.8 fL (7.4-10.4); Monocytes # (auto) 0.59 K/uL (0.11-0.59); Monocytes % (auto) 4.9 %; Neutrophils # (auto) 10.38 K/uL (1.4-6.5); Neutrophils % (auto) 87.1 %; Platelet Count 117 K/uL (130-400); RDW Coefficient of Variation 18.7 % (11.5-14.5); RDW Standard Deviation 58.3 fL (36.4-46.3); Red Blood Count 2.59 M/uL (4.7-6.1); White Blood Count 11.93 K/uL (4.8-10.8)
[2020-03-13 08:15] LABS: Ovalocytes 1+
[2020-03-13 08:17] LABS: Partial Thromboplastin Ratio 1.8
[2020-03-13 08:18] LABS: Partial Thromboplastin Time 49.6 Seconds (21.0-31.0)
[2020-03-13 08:24] LABS: BUN Creatinine Ratio 24.2 (10-20); Calcium 7.7 mg/dl (8.5-10.1); Creatinine Clr Calc Pharmacy 34.7 ml/min; Est GFR (African American) 32.6; Est GFR (Non-African American) 28.2; Magnesium 1.8 mg/dl (1.8-2.4)
[2020-03-13 08:30] LABS: Phosphorus 3.6 mg/dl (2.5-4.9)
[2020-03-13] MEDS: POTASSIUM CHLORIDE 20 MEQ TABCR PO SCH (08:43)
[2020-03-13] MEDS: METOPROLOL TARTRATE 25 MG TAB PO SCH ×2 (08:43→19:34)
[2020-03-13] MEDS: dilTIAZem HCL 300 MG CAPCR PO SCH (08:43)
[2020-03-13 08:57] LABS: Folate (Folic Acid) 5.25 ng/ml (>5.38)
--- NOTE | 2020-03-13 09:50 | Nephrology Progress Note ---
Date of Service March 13, 2020 Assessment & Plan (1) BRYAN (acute kidney injury): Patient with acute kidney injury due to combination of ATN from sepsis and obstructive uropathy. Baseline creatinine of 1.1. Creatinine peaked at 2.7. Creatinine is improving at 2.1 today. He has signs of volume overload but was net -800 mL yesterday. We will hold off on Lasix today. -Monitor input output -Daily BMP -Avoid contrast unless lifesaving. (2) Acute urinary retention: Likely in setting of radiotherapy. Continue Fernandes catheter until urology follow-up possible outpatient. (3) Hypokalemia: Due to diarrhea and renal losses in setting of Lasix use. We will give an additional potassium chloride 40 mEq p.o. today. (4) Anemia: Multifactorial etiology including anemia of malignancy and sepsis. Monitor and transfuse as needed. No need for Epogen in setting of malignancy. Admission and Anticipated Discharge Date Admission Date: March 06, 2020 Subjective Patient feels better today. Diarrhea has subsided. Still has tachycardia. No fever. No vomiting. Potassium is still low at 3. Review of Systems Review of Systems: All systems reviewed & are unremarkable except as noted in HPI & below Physical Exam Physical Exam: General exam: Appears comfortable, no acute distress HEENT: Pupils are equal and reactive to light Neck: No JVD, neck is supple trachea is midline Respiratory system: Clear breath sounds bilaterally. Gastrointestinal: Abdomen is soft, non distended, non tender, bowel sounds are present CVS: Regular rate and rhythm. No murmurs, rubs or gallops Musculoskeletal: No joint or muscle tenderness Extremities: Non tender, 1+ edema, peripheral pulses are present Neuro: Oriented, no tremors, no focal neurological deficits Skin: No rashes Results & Data ([facility]) Vital Signs (Past 12 Hours) Vital Signs Temp Pulse Pulse Resp BP Pulse Ox 03/13/20 06:59 37.0 C 118 H 19 111/63 91 03/13/20 04:26 37.6 C H 130 H 20 115/65 92 03/13/20 00:36 37.5 C 105 H 22 119/67 90 03/12/20 23:47 100 H Laboratory Results 03/13/20 07:34 03/13/20 03/13/20 03/13/20 07:34 07:34 07:34 WBC 11.93 H RBC 2.59 L MCV 85.7 MCH 27.8 MCHC 32.4 RDW Std Deviation 58.3 H RDW Coeff of Shanita 18.7 H Plt Count 117 L MPV 10.8 H Phosphorus Cancelled 3.6
--- NOTE | 2020-03-13 13:36 | Cardiology Progress Note ---
Date of Service March 13, 2020 Assessment & Plan (1) Atrial fibrillation with RVR: He presented with atrial fibrillation with a rapid heart rate, the duration is uncertain. Based on his description of taking his pulse oximetry and blood pressure 2 or 3 days prior to admission and recalling that it was normal it is of relatively recent onset. Intravenous diltiazem has helped somewhat with rate control but his heart rate still remained somewhat fast. He developed nausea which seems to be related to digoxin therefore that has been discontinued. I did switch his diltiazem to oral today (240 mg daily), increased to 300 mg daily. His heart rate remained elevated. Over the weekend beta-blockade was added at 25 mg twice daily. His heart rate is still elevated. I would be a little cautious about high doses of beta-blockade in addition to diltiazem, he probably has some degree of catecholamine drive at the moment and I suspect as he gets better his heart rate will drop. His left ventricular function has not deteriorated and we may be better off loading his heart rate run somewhat fast currently. (2) Cardiomyopathy: He had left ventricular dysfunction when he was ill in the ICU, his ejection fraction was 25 to 30%, however on repeat several days later his ejection fraction was low normal. I suspect his cardiomyopathy was due to stunning due to his illness. At some point we should repeat his echocardiogram but I do not think we need to treat him aggressively for his cardiomyopathy although adding beta blockade might be reasonable if his lung condition will tolerate it. Admission and Anticipated Discharge Date Admission Date: March 06, 2020 Subjective Is feeling better this morning, he is sitting up at his bedside and tells minutes for the first time she is done that. He had a better night sleep last night and overall has a better outlook. No palpitations. Physical Exam Physical Exam: Constitutional: Alert, cooperative and in no distress. HEENT: Unremarkable Neck: No jugular venous distention, carotid pulses are irregular but otherwise normal and equal bilaterally without bruits. Pulmonary: Clear to auscultation bilaterally. Cardiac: Irregular somewhat rapid rhythm with no murmur, gallop or rub. Abdomen: Soft, nontender with normal bowel sounds. Extremities: No edema. Distal pulses intact. Neurologic: No focal findings. Gait is steady. Skin: No rash, ecchymoses or petechiae. Results & Data ([facility]) Vital Signs (Past 12 Hours) Vital Signs Temp Pulse Resp BP Pulse Ox 03/13/20 11:52 36.6 C 115 H 20 113/68 95 03/13/20 06:59 37.0 C 118 H 19 111/63 91 03/13/20 04:26 37.6 C H 130 H 20 115/65 92 Diagnostic Findings Coagulation 03/13/20 Range/Units 07:34 APTT 49.6 H* (21.0-31.0) Seconds CBC 03/13/20 Range/Units 07:34 WBC 11.93 H (4.8-10.8) K/uL RBC 2.59 L (4.7-6.1) M/uL Hgb 7.2 L (14.0-18.0) g/dL Hct 22.2 L (42-52) % Plt Count 117 L (130-400) K/uL Neut # (Auto) 10.38 H (1.4-6.5) K/uL Lymph # (Auto) 0.91 L (1.2-3.4) K/uL [place] # (Auto) 0.59 (0.11-0.59) K/uL Eos # (Auto) 0.01 (0-0.5) K/uL Baso # (Auto) 0.00 (0-0.2) K/uL Comprehensive Metabolic Panel 03/13/20 Range/Units 07:34 Sodium 139 (136-145) mmol/L Potassium 3.0 L (3.5-5.1) mmol/L Chloride 104 (98-107) mmol/L Carbon Dioxide 26 (21-32) mmol/L BUN 52 H (7-18) mg/dl Creatinine 2.13 H (0.6-1.4) mg/dl Glucose 156 H (70-99) mg/dl Calcium 7.7 L (8.5-10.1) mg/dl Intake and Output 03/12/20 03/13/20 03/13/20 22:59 06:59 14:59 Intake Total 910.667 / 2082.167 471.5 / 2082.167 Output Total 950 / 2552 852 / 2552 Balance -39.333 / -469.833 -380.5 / -469.833 Intake: IV 560.667 / 1532.167 471.5 / 1532.167 HEPARIN SODIUM/DEXTROSE 25,000 490.667 / 1462.167 471.5 / 1462.167 units In 500 ml @ 2,300 UNITS/ HR 46 mls/hr IV .[id number] [facility] Rx #:[id number] Rocephin 2,000 mg In D5w 50 ml 70 / 70 @ 140 mls/hr IV DAILY@2100 [facility] Rx#:[id number] Oral 350 / 550 Output: Urine Amount (Catheter) 950 / 2550 850 / 2550 Fernandes/Indwelling 950 / 2550 850 / 2550 # Bowel Movements 2 / 2 Other: Weight 102 kg Patient Weight 03/14/20 06:59 Weight 102 kg Telemetry: Atrial fibrillation, rate still elevated at around 120 bpm on average PG Care Time/CCT Total # of Minutes Spent Total Time Spent with Patient: Total time spent is greater than 50% in coordination of care (as documented) at patient's floor/unit and/or counseling patient: Coding Level of Care Code 76566 Subseq Hosp Care Lvl 2 Diagnoses Atrial fibrillation with RVR I48.91 Cardiomyopathy I42.9
--- NOTE | 2020-03-13 13:47 | Hospitalist Progress Note ---
Date of Service March 13, 2020 Assessment & Plan (1) Septic shock: Severe sepsis: secondary to E coli Bacteremia, UTI -Patient presenting from home with reports of profound generalized weakness and an episode of rigors this morning -On presentation: BP 77/62, HR 153, afebrile, lactic acid 4.8 -Likely urinary source, possible prostatitis Blood cultures: E coli Urine culture: E coli repeat blood cultures: Negative so far afebrile x3 days now WBC improving from 20,000, now 11,[address] abdomen/pelvis: possible Pneumonia? Unlikely as patient is not having productive cough added Doxy to Cefepime IV--> per family, patient noted to have severe tremors after Cefepime IV and Doxycycline IV completed; requested to stop these antibiotics transitioned to Ceftriaxone IV, tolerating well monitor Delirium likely multifactorial: Ativan, Sepsis, Acute Renal Failure limit Ativan, reduce the dose Resolved BRYAN (acute kidney injury): -Creatinine 2.7 (baseline 1.1) -Likely multifactorial due to postobstructive uropathy and sepsis -Fernandes placed in the ED crea improved from 2.7 to 2.0 Noted to have volume overload, in the setting of cardiomyopathy per Echo Nephrology consulted, IV Lasix ordered, diuresed well Hold Lasix for now Monitor creatinine Volume Overload, secondary to Cardiomyopathy, in the Setting of Acute Renal Failure Cardiomyopathy likely secondary stunning due to his illness repeat Echo: EF fraction improved 25 to 30% now 50-55%, no regional wall motion abnormalities Nephrology consulted, IV Lasix ordered Diuresed well, almost close to euvolemia management of Lasix as noted above Atrial fibrillation with RVR: -On presentation, patient in atrial fibrillation with RVR with rates in the 150s -New onset -Likely due to sepsis and/or hypokalemia -Sheriff consulted discussed with Sheriff Dr. Castro added Metoprolol 25mg BID to Cardizem po for better BP control, then wean off Cardizem continue Heparin drip Awaiting further recommendations by cardiology service (+) mild epistaxis- afrin spray applied to the right nostril , packed with small piece of gauze epistaxis resolved Hypokalemia, Mg, Phos -K+ 2.5, Mg+ normal 2.0 -Replace K, Mg, Phos Anemia, continue to iron deficiency -Hgb 8.1 (10.9 11/2019)--> 7.7 -No obvious signs of bleeding -Underlying malignancy likely contributing -Hemoccult negative -no indication for transfusion at this time unless hemoglobin less than 7 -Start ferrous sulfate twice a day Colon cancer: Follows with Dr. Maryanne Nicole with [facility] hematology/oncology in [place] and [facility] -History of resection, chemo, radiation; also with pelvic mets and possible RLL -10/2019 [place] Xel[place] [facility] [place] poorly tolerated -visit with Dr. Nicole 01/2020 patient declined further treatments -CT scan suggesting metastatic hepatic disease - GI consulted: will need outpatient Colonoscopy Will need ff up with Oncologist Diarrhea likely from Radiation Therapy - resolved - C diff gene positive But toxin negative DVT prophylaxis: on Heparin drip Disposition pending will need PT/OT Admission and Anticipated Discharge Date Admission Date: March 06, 2020 Subjective Follow-up for sepsis secondary to bacteremia, E. coli, UTI E. coli, acute renal failure, atrial fibrillation RVR Seen resting in bed, comfortable, in good spirits, smiling States he slept well again overnight and feels rested States strength is improving again Denies shortness of breath, has some dry cough, no fevers or chills No diarrhea, no abdominal pain, no nausea or vomiting Denies chest pain, palpitations, dizziness, dyspnea No other symptoms Review of Systems Review of Systems: All systems reviewed & are unremarkable except as noted in HPI & below Physical Exam Physical Exam: General- oriented x 3, not in distress, speaks in sentences with no effort or accessory muscle use Eyes- anicteric Neck- no JVD Lungs- clear breath sounds bilaterally, no rales/wheezes Heart-mild tachycardia, irregularly irregular rhythm, no murmurs Abdomen- normal bowel sounds, nondistended, soft, nontender Extremities-trace pretibial edema, no calf tenderness Neuro- alert, oriented x 3; no gross focal neurologic deficits Skin- warm & dry Results & Data Results & Data ([facility]) Vital Signs (Past 12 Hours) Vital Signs Temp Pulse Resp BP Pulse Ox 03/13/20 11:52 36.6 C 115 H 20 113/68 95 03/13/20 06:59 37.0 C 118 H 19 111/63 91 03/13/20 04:26 37.6 C H 130 H 20 115/65 92 Laboratory Results Laboratory Results - last 24 hr 03/13/20 03/13/20 03/13/20 07:34 07:34 07:34 WBC 11.93 H RBC 2.59 L Hgb 7.2 L Hct 22.2 L MCV 85.7 MCH 27.8 MCHC 32.4 RDW Std Deviation 58.3 H RDW Coeff of Shanita 18.7 H Plt Count 117 L MPV 10.8 H Immature Gran % (Auto) 0.3 Neut % (Auto) 87.1 Lymph % (Auto) 7.6 [place] % (Auto) 4.9 Eos % (Auto) 0.1 Baso % (Auto) 0.0 Neut # (Auto) 10.38 H Lymph # (Auto) 0.91 L [place] # (Auto) 0.59 Eos # (Auto) 0.01 Baso # (Auto) 0.00 Immature Gran # (Auto) 0.04 H Ovalocytes 1+ APTT 49.6 H* PTT Ratio 1.8 Sodium Potassium Chloride Carbon Dioxide Anion Gap BUN Creatinine Est Cr Clr Drug Dosing Est GFR ( Amer) Est GFR (Non-Af Amer) BUN/Creatinine Ratio Glucose Calcium Phosphorus Cancelled Magnesium Cancelled Iron TIBC Transferrin Ferritin Vitamin B12 Folate 03/13/20 03/13/20 07:34 07:34 WBC RBC Hgb Hct MCV MCH MCHC RDW Std Deviation RDW Coeff of Shanita Plt Count MPV Immature Gran % (Auto) Neut % (Auto) Lymph % (Auto) [place] % (Auto) Eos % (Auto) Baso % (Auto) Neut # (Auto) Lymph # (Auto) [place] # (Auto) Eos # (Auto) Baso # (Auto) Immature Gran # (Auto) Ovalocytes APTT PTT Ratio Sodium 139 Potassium 3.0 L Chloride 104 Carbon Dioxide 26 Anion Gap 9.0 BUN 52 H Creatinine 2.13 H Est Cr Clr Drug Dosing 34.7 Est GFR ( Amer) 32.6 Est GFR (Non-Af Amer) 28.2 BUN/Creatinine Ratio 24.2 H Glucose 156 H Calcium 7.7 L Phosphorus 3.6 Magnesium 1.8 Iron 10 L TIBC 179 L Transferrin 137 L Ferritin 395.0 H Vitamin B12 1779 H Folate 5.25 L
--- NOTE | 2020-03-13 14:07 | Hospitalist Progress Note ---
Date of Service March 13, 2020 Assessment & Plan (1) Septic shock: Severe sepsis: secondary to E coli Bacteremia, UTI -Patient presenting from home with reports of profound generalized weakness and an episode of rigors this morning -On presentation: BP 77/62, HR 153, afebrile, lactic acid 4.8 -Likely urinary source, possible prostatitis Blood cultures: E coli Urine culture: E coli repeat blood cultures: Negative so far afebrile x3 days now WBC improving from 20,000, now 11,[address] abdomen/pelvis: possible Pneumonia? Unlikely as patient is not having productive cough added Doxy to Cefepime IV--> per family, patient noted to have severe tremors after Cefepime IV and Doxycycline IV completed; requested to stop these antibiotics transitioned to Ceftriaxone IV, tolerating well monitor Delirium likely multifactorial: Ativan, Sepsis, Acute Renal Failure limit Ativan, reduce the dose Resolved BRYAN (acute kidney injury): -Creatinine 2.7 (baseline 1.1) -Likely multifactorial due to postobstructive uropathy and sepsis -Fernandes placed in the ED crea improved from 2.7 to 2.0 Noted to have volume overload, in the setting of cardiomyopathy per Echo Nephrology consulted, IV Lasix ordered, diuresed well Hold Lasix for now Monitor creatinine Volume Overload, secondary to Cardiomyopathy, in the Setting of Acute Renal Failure Cardiomyopathy likely secondary stunning due to his illness repeat Echo: EF fraction improved 25 to 30% now 50-55%, no regional wall motion abnormalities Nephrology consulted, IV Lasix ordered Diuresed well, almost close to euvolemia management of Lasix as noted above Atrial fibrillation with RVR: -On presentation, patient in atrial fibrillation with RVR with rates in the 150s -New onset -Likely due to sepsis and/or hypokalemia -Laboratory Miller consulted discussed with Laboratory Miller Dr. Castro added Metoprolol 25mg BID to Cardizem po for better BP control, then wean off Cardizem continue Heparin drip Awaiting further recommendations by cardiology service (+) mild epistaxis- afrin spray applied to the right nostril , packed with small piece of gauze epistaxis resolved Hypokalemia, Mg, Phos -K+ 2.5, Mg+ normal 2.0 -Replace K, Mg, Phos Anemia, continue to iron deficiency -Hgb 8.1 (10.9 11/2019)--> 7.7 -No obvious signs of bleeding -Underlying malignancy likely contributing -Hemoccult negative -no indication for transfusion at this time unless hemoglobin less than 7 -Start ferrous sulfate twice a day Colon cancer: Follows with Dr. Maryanne Nicole with [facility] hematology/oncology in [place] and [facility] -History of resection, chemo, radiation; also with pelvic mets and possible RLL -10/2019 received re-irradiation and Xelda at [facility] [place] - poorly tolerated -visit with Dr. Nicole 01/2020 patient declined further treatments -CT scan suggesting metastatic hepatic disease - GI consulted: will need outpatient Colonoscopy Will need ff up with Oncologist Diarrhea likely from Radiation Therapy - resolved - C diff gene positive But toxin negative DVT prophylaxis: on Heparin drip Disposition pending will need PT/OT Admission and Anticipated Discharge Date Admission Date: March 06, 2020 Subjective ff up for Results & Data Results & Data ([facility]) Vital Signs (Past 12 Hours) Vital Signs Temp Pulse Resp BP Pulse Ox 03/13/20 11:52 36.6 C 115 H 20 113/68 95 03/13/20 06:59 37.0 C 118 H 19 111/63 91 03/13/20 04:26 37.6 C H 130 H 20 115/65 92
[2020-03-13] MEDS: FERROUS SULFATE 325 MG TAB PO SCH (17:00)
[2020-03-13] MEDS: TAMSULOSIN HCL 0.4 MG CAP PO SCH (19:34)
[2020-03-13] MEDS: cefTRIAXone SODIUM 2,000 MG in DEXTROSE 5% 50 ML IV SCH (19:46)
[2020-03-14] MEDS: HEPARIN SODIUM/DEXTROSE 25,000 UNITS/500 ML BAG IV SCH (03:07)
--- NOTE | 2020-03-14 05:21 | Communication Note ---
Date of Service: March 14, 2020 Made aware by RN of dark brown stools more liquid than usual with a metallic smell. Patient without abdominal pain. FOBT positive as per RN platelets 117 (8) AP L GIB Loose stools Rule out recurrent C. difficile New onset thrombocytopenia (03/13) rule out HIT Ongoing IV heparin tx for A. fib Repeat stool C. difficile Hold IV heparin CBC now, HIT screen N.p.o. until patient seen by AM provider RE possible endoscopy if deemed appropriate Will relay to AM provider.
[2020-03-14 05:54] LABS: Basophils # (auto) 0.01 K/uL (0-0.2); Basophils % (auto) 0.2 %; Eosinophils # (auto) 0.03 K/uL (0-0.5); Eosinophils % (auto) 0.5 %; Hemoglobin 7.1 g/dL (14.0-18.0); Immature Granulocytes # (auto) 0.02 K/uL (0.00-0.02); Immature Granulocytes % (auto) 0.3 %; Lymphocytes # (auto) 1.02 K/uL (1.2-3.4); Lymphocytes % (auto) 15.6 %; Mean Corpuscular Hemoglobin 27.5 pg (25-34); Mean Corpuscular Hgb Conc 32.3 g/dL (32-36); Mean Corpuscular Volume 85.3 fL (80-100); Monocytes # (auto) 0.35 K/uL (0.11-0.59); Monocytes % (auto) 5.4 %; Neutrophils # (auto) 5.09 K/uL (1.4-6.5); Platelet Count 106 K/uL (130-400); RDW Coefficient of Variation 18.9 % (11.5-14.5); RDW Standard Deviation 59.1 fL (36.4-46.3); Red Blood Count 2.58 M/uL (4.7-6.1); White Blood Count 6.52 K/uL (4.8-10.8)
[2020-03-14 06:15] LABS: Partial Thromboplastin Ratio 1.8
[2020-03-14 06:21] LABS: Partial Thromboplastin Time 49.5 Seconds (21.0-31.0)
[2020-03-14 06:23] LABS: BUN Creatinine Ratio 25.1 (10-20); Calcium 7.5 mg/dl (8.5-10.1); Creatinine Clr Calc Pharmacy 36.4 ml/min; Est GFR (African American) 34.6; Est GFR (Non-African American) 29.9; Magnesium 1.7 mg/dl (1.8-2.4); Potassium 3.3 mmol/L (3.5-5.1)
[2020-03-14 06:31] LABS: Dohle Bodies 1+; Hypochromasia Present; Ovalocytes 1+
[2020-03-14] MEDS ORDERED: PANTOPRAZOLE BOLUS/DRIP 1 EA IV STA (08:18)
[2020-03-14] MEDS: FERROUS SULFATE 325 MG TAB PO SCH (08:29)
[2020-03-14] MEDS: FOLIC ACID 400 MCG TAB PO SCH (08:29)
[2020-03-14] MEDS: METOPROLOL TARTRATE 25 MG TAB PO SCH ×2 (08:29→20:08)
[2020-03-14] MEDS: POTASSIUM CHLORIDE 20 MEQ TABCR PO SCH (08:30)
[2020-03-14] MEDS: dilTIAZem HCL 300 MG CAPCR PO SCH (08:30)
[2020-03-14] MEDS ORDERED: PANTOprazole 80 MG in DEXTROSE 5% 100 ML IV ONE (08:45)
[2020-03-14] MEDS: PANTOprazole 40 MG in DEXTROSE 5% 100 ML IV SCH ×4 (09:01→21:24)
--- NOTE | 2020-03-14 09:28 | Cardiology Progress Note ---
Date of Service March 14, 2020 Assessment & Plan (1) Atrial fibrillation with RVR: He presented with atrial fibrillation with a rapid heart rate, the duration is uncertain. Based on his description of taking his pulse oximetry and blood pressure 2 or 3 days prior to admission and recalling that it was normal it is of relatively recent onset. Intravenous diltiazem has helped somewhat with rate control but his heart rate still remained somewhat fast. He developed nausea which seems to be related to digoxin therefore that has been discontinued. I did switch his diltiazem to oral (240 mg daily), subsequently increased to 300 mg daily. His heart rate remained elevated. Over the weekend beta-blockade was added at 25 mg twice daily. His heart rate is still elevated. I would be a little cautious about high doses of beta-blockade in addition to diltiazem, he probably has some degree of catecholamine drive at the moment and I suspect as he gets better his heart rate will drop. His left ventricular function has not deteriorated and we may be better off letting his heart rate ru n somewhat fast currently. I would wait until his current issue is resolved before doing much more with rate control. (2) Cardiomyopathy: He had left ventricular dysfunction when he was ill in the ICU, his ejection fraction was 25 to 30%, however on repeat several days later his ejection fraction was low normal. I suspect his cardiomyopathy was due to s tunning due to his illness. At some point we should repeat his echocardiogram but I do not think we need to treat him aggressively for his cardiomyopathy although adding beta blockade might be reasonable if his lung condition will tolerate it. Admission and Anticipated Discharge Date Admission Date: March 06, 2020 Subjective This morning he is not feeling well, he reports that he is been shaking violently since about 5:30 AM, feels very weak and tired. Apparently this was relatively sudden onset this morning. He has no cardiovascular symptoms. Physical Exam Physical Exam: Constitutional: Alert, cooperative and in no distress. HEENT: Unremarkable Neck: No jugular venous distention, carotid pulses are irregular but otherwise normal and equal bilaterally without bruits. Pulmonary: Clear to auscultation bilaterally. Cardiac: Irregular rapid rhythm with no murmur, gallop or rub. Abdomen: Soft, nontender with normal bowel sounds. Extremities: No edema. Distal pulses intact. Neurologic: No focal findings. Gait is steady. Skin: No rash, ecchymoses or petechiae. Results & Data ([facility]) Vital Signs (Past 12 Hours) Vital Signs Temp Pulse Pulse Resp BP Pulse Ox 03/14/20 08:03 37.3 C 120 H 19 123/63 93 03/14/20 03:18 36.5 C 91 H 18 105/66 95 03/14/20 00:00 36.8 C 116 H 18 121/72 94 03/13/20 23:23 98 H Laboratory Results Coagulation 03/14/20 Range/Units 05:35 APTT 49.5 H* (21.0-31.0) Seconds CBC 03/14/20 Range/Units 05:35 WBC 6.52 (4.8-10.8) K/uL RBC 2.58 L (4.7-6.1) M/uL Hgb 7.1 L (14.0-18.0) g/dL Hct 22.0 L (42-52) % Plt Count 106 L (130-400) K/uL Neut # (Auto) 5.09 (1.4-6.5) K/uL Lymph # (Auto) 1.02 L (1.2-3.4) K/uL Prentiss # (Auto) 0.35 (0.11-0.59) K/uL Eos # (Auto) 0.03 (0-0.5) K/uL Baso # (Auto) 0.01 (0-0.2) K/uL Comprehensive Metabolic Panel 03/14/20 Range/Units 05:35 Sodium 141 (136-145) mmol/L Potassium 3.3 L (3.5-5.1) mmol/L Chloride 106 (98-107) mmol/L Carbon Dioxide 27 (21-32) mmol/L BUN 51 H (7-18) mg/dl Creatinine 2.03 H (0.6-1.4) mg/dl Glucose 153 H (70-99) mg/dl Calcium 7.5 L (8.5-10.1) mg/dl Intake and Output 03/13/20 03/14/20 03/14/20 22:59 06:59 14:59 Intake Total 549.933 / 1797.267 767.334 / 1797.267 120 / 120 Output Total 600 / 1850 700 / 1850 Balance -50.067 / -52.733 67.334 / -52.733 120 / 120 Intake: IV 549.933 / 1117.267 567.334 / 1117.267 120 / 120 HEPARIN SODIUM/DEXTROSE 25,000 479.933 / 1047.267 567.334 / 1047.267 units In 500 ml @ 2,300 UNITS/ HR 46 mls/hr IV .[id number] [facility] Rx #:[id number] Protonix 80 mg In D5 100 ml @ 120 / 120 400 mls/hr IV NOW ONE Rx#: [id number] Rocephin 2,000 mg In D5w 50 ml 70 / 70 @ 140 mls/hr IV DAILY@2100 [facility] Rx#:[id number] Oral 200 / 680 Output: Urine Amount (Catheter) 600 / 1850 700 / 1850 Fernandes/Indwelling 600 / 1850 700 / 1850 Diagnostic Findings Telemetry: Atrial fibrillation, rate was somewhat rapid but not too bad until this morning when his rate increased significantly. PG Care Time/CCT Total # of Minutes Spent Total Time Spent with Patient: Total time spent is greater than 50% in coordination of care (as documented) at patient's floor/unit and/or counseling patient: Coding Level of Care Code 39869 Subseq Hosp Care Lvl 2 Diagnoses Atrial fibrillation with RVR I48.91 Cardiomyopathy I42.9
[2020-03-14] MEDS: IRON SUCROSE 200 MG in 0.9 % SODIUM CHLORIDE 100 ML IV SCH (10:09)
--- NOTE | 2020-03-14 10:26 | Nephrology Progress Note ---
Date of Service March 14, 2020 Assessment & Plan (1) BRYAN (acute kidney injury): Patient with acute kidney injury due to combination of ATN from sepsis and obstructive uropathy. Baseline creatinine of 1.1. Creatinine peaked at 2.7. Creatinine is improving at 2 today. He has signs of volume overload but was even yesterday. We will hold off on Lasix today. -Monitor input output -Daily BMP -Avoid contrast unless lifesaving. (2) Acute urinary retention: Likely in setting of radiotherapy. Continue Fernandes catheter until urology follow-up possible outpatient. (3) Hypokalemia: Due to diarrhea. We will give an additional potassium chloride 40 mEq p.o. today. (4) Anemia: Multifactorial etiology including anemia of malignancy and sepsis. Monitor and transfuse as needed. Iron saturation of 5.6%. We will give IV Venofer 200 mg daily for 5 days. No need for Epogen in setting of malignancy. Admission and Anticipated Discharge Date Admission Date: March 06, 2020 Subjective Patient complaining of rectal bleeding and weakness. No shortness of breath. Creatinine is stable at 2. Hemoglobin is down to 7.1 today. Iron saturation of 5.6%. Review of Systems Review of Systems: All systems reviewed & are unremarkable except as noted in HPI & below Physical Exam Physical Exam: General exam: Appears comfortable, no acute distress HEENT: Pupils are equal and reactive to light Neck: No JVD, neck is supple trachea is midline Respiratory system: Clear breath sounds bilaterally. Gastrointestinal: Abdomen is soft, non distended, non tender, bowel sounds are present CVS: Regular rate and rhythm. No murmurs, rubs or gallops Musculoskeletal: No joint or muscle tenderness Extremities: Non tender, no edema, peripheral pulses are present Neuro: Oriented, no tremors, no focal neurological deficits Skin: No rashes Results & Data ([facility]) Vital Signs (Past 12 Hours) Vital Signs Temp Pulse Pulse Resp BP Pulse Ox 03/14/20 08:03 37.3 C 120 H 19 123/63 93 03/14/20 08:00 111 H 03/14/20 03:18 36.5 C 91 H 18 105/66 95 03/14/20 00:00 36.8 C 116 H 18 121/72 94 03/13/20 23:23 98 H Laboratory Results 03/14/20 05:35 03/14/20 05:35 WBC 6.52 RBC 2.58 L MCV 85.3 MCH 27.5 MCHC 32.3 RDW Std Deviation 59.1 H RDW Coeff of Shanita 18.9 H Plt Count 106 L MPV 11.0 H
--- NOTE | 2020-03-14 12:10 | Gastroenterology Progress Note ---
Date of Service March 14, 2020 Assessment & Plan (1) Melena: DDX= UGIB vs LGIB, possibly related to acid-peptic disease, XRT proctitis, or cancer bleed. I explained to the pt that because he appears stable, this is likely a slow, low volume bleed. We can defer EGD per his wishes, but if anticoagulation is deemed necessary, it would be a appropriate to undergo EGD prior to restarting anticoagulation to r/o any lesions that would be in the setting of anticoagulation. Pt verified understanding. He agreed to be NPO today, so that we could go forward with EGD if brisk bleeding occurs. Continue to monitor outputs. Will recheck C-diff. Present on Admission?: No Admission and Anticipated Discharge Date Admission Date: March 06, 2020 Supervising Physician Co-Signing Physician Notes Attg add: I interviewed and examined pt, reviewed chart and labs. Pt with met CRC, now anti-coag for a fib, with dark stool, drop in hgb from mid 7's to 6.8 without increase in BUN or change in VS. Discussed possible dx with pt as mentioned above in mid level note. Pt does not want EGD or flex sig. IV BID PPI. Follow hgb, follow for re-bleeding. Of note, pt may be at higher risk for GI bleed with anti coagulation therapy due to colon cancer; however, it is hard to risk stratify him without endoscopy. Please reconsult if pt is willing to consider endoscopy. Subjective Admitted 03/06 for weakness. 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 Hx of C-diff but on this admission checked twice: gene (+), toxin (-). On po iron. Tx for Urosepsis, new A-fib with RVR. Heparinized for new A-fib, then today, GI reconsulted for melena. Nursing says black, loose BM with some bright red blood. Very weak this morning. Febrile this morning. Pt says "too weak," to undergo procedures and prefers to avoid EGD if possible. Review of Systems Review of Systems: ROS: Gen: + weakness, +50 lbs weight loss in 6 months; +febrile Eyes: No eye redness, or pain, no recent vision changes Resp: No SOB, no cough Cardio: Pt has not felt any palpitations/irregular beats, no chest pain GI: + diarrhea and incontinence No abdominal pain, no nausea/vomiting : Denies pain on urination Skin: No jaundice, itching or new rashes Physical Exam Constitutional: well developed, well nourished, + ill appearing, + obese and cooperative appears very fatigued today Eyes: PERRL, conjunctivae normal, anicteric sclerae ENMT: external ear and nose normal, oropharynx normal Neck: trachea midline, no thyromegaly Respiratory: normal respiratory effort Auscultation: + diminished lung sounds (slightly) and + crackles (few fine crackles right base) Gastrointestinal (Abdomen): normal bowel sounds, soft, nontender, no hepatosplenomegaly Musculoskeletal: no cyanosis or clubbing, extremities motor strength 5/5 Skin: no rashes, warm and dry Neurologic: PERRL, EOMI, accommodation nl, no face palsy, no dysarthria Psychiatric: A+Ox3, euthymic affect Lymphatic: no cervical or axillary lymphadenopathy Results & Data ([facility]) Vital Signs (Past 12 Hours) Vital Signs Temp Pulse Pulse Resp BP Pulse Ox 03/14/20 10:48 37.0 C 130 H 20 101/64 94 03/14/20 08:03 37.3 C 120 H 19 123/63 93 03/14/20 08:00 111 H 03/14/20 03:18 36.5 C 91 H 18 105/66 95 03/14/20 00:00 36.8 C 116 H 18 121/72 94 Laboratory Results Hb 7.9 on arrival, 7.1 eliud, BUN 51 and Cr 2.[address] with IV contrast on 03/09: 1. Persistent hepatic masses suspicious for metastatic disease. 2. Increasing bilateral pleural effusions with basilar parenchymal opacities likely atelectatic 3. Persistent bilateral hydronephrosis and hydroureter 4. Prostatomegaly and indwelling Fernandes catheter 5. No evidence of bowel obstruction. No evidence of free air 6. Bowel containing right-sided ventral abdominal wall hernia. No evidence of obstruction 7. Generalized body wall edema consistent with anasarca 8. Persistent perirectal/sigmoid soft tissue nodules suspicious for neoplasm. 9. Examination limited due to the lack of oral and intravenous contrast.
[2020-03-14 16:29] LABS: Hematocrit (blood only) 20.3 % (42-52); Hemoglobin 6.8 g/dL (14.0-18.0)
--- NOTE | 2020-03-14 16:39 | Hospitalist Progress Note ---
Date of Service March 14, 2020 Assessment & Plan (1) Septic shock: 80-year-old male with history of colon cancer status post chemotherapy and radiation therapy, Presenting with generalized weakness and diarrhea times few weeks. He was initially admitted for sepsis secondary to E. coli bacteremia and UTI, with associated acute renal failure, onset atrial fibrillation in RVR. Severe sepsis: secondary to E coli Bacteremia, UTI -Patient presenting from home with reports of profound generalized weakness and an episode of rigors -On presentation: BP 77/62, HR 153, afebrile, lactic acid 4.8 -Likely urinary source, possible prostatitis Blood cultures: E coli Urine culture: E coli repeat blood cultures: Negative so far CT abdomen/pelvis: possible Pneumonia? Unlikely as patient is not having productive cough added Doxy to Cefepime IV for possible pneumonia--> per family, patient noted to have severe tremors after receiving cefepime IV and Doxycycline IV; requested to stop these antibiotics transitioned to Ceftriaxone IV, tolerating well afebrile x4 days now Leukocytosis resolved from 20,000, now 6500 monitor closely Continue ceftriaxone IV, possible transition to p.o. antibiotic upon discharge to complete a 14-day course BRYAN (acute kidney injury) Urinary retention secondary to bladder outlet obstruction -Creatinine 2.7 (baseline 1.1) -Likely multifactorial due to postobstructive uropathy and sepsis -Fernandes placed in the ED, urologist consulted recommending to maintain Fernandes catheter, voiding trial as an outpatient Manufacturing Specialist consulted, IV fluids given crea improved from 2.7 to 2.0--> seems to have plateaued at around 2 for the past several days but with good urine output Subsequently noted to have volume overload, in the setting of cardiomyopathy per Echo Fluids discontinued, IV Lasix ordered, with good diuresis Monitor creatinine Volume Overload, secondary to Cardiomyopathy, in the Setting of Acute Renal Failure Cardiomyopathy likely secondary stunning due to his illness repeat Echo: EF fraction improved 25 to 30% now 50-55%, no regional wall motion abnormalities Nephrology consulted, IV Lasix ordered initially Diuresed well, almost close to euvolemia management of Lasix as noted above Atrial fibrillation with RVR: -On presentation, patient in atrial fibrillation with RVR with rates in the 150s -New onset -Likely due to sepsis and/or hypokalemia -Educational Program Assistant consulted Patient placed on Cardizem drip then transition to Cardizem p.o. added Metoprolol 25mg BID to Cardizem po for better BP control -Heparin drip currently discontinued secondary to melena and possible hematuria Management of melena and hematuria noted below (+) mild epistaxis last week while on heparin drip afrin spray applied to the right nostril , packed with small piece of gauze epistaxis resolved Hypokalemia, Mg, Phos -Replace and monitor Anemia, secondary to iron deficiency Possible upper GI bleed, hematuria -Hgb 8.1 (10.9 11/2019)--> 6.8 -03/13/2020: Positive dark brown stools Repeat FOBT positive Heparin discontinued, Protonix drip started GI consulted--> awaiting decision regarding EGD -will give 1 unit of packed RBCs -IV iron ordered Possible hematuria Fernandes catheter draining blood-tinged urine Urinalysis and urine cultures ordered Monitor If persistent, reconsult urology Episodes of tremors/shivering Patient has been experiencing episodes of tremors/shivering not associated with fever Also infection seems to be under control at this point Initial impression was possible antibiotic reaction, cefepime and doxycycline changed to ceftriaxone, given PRN Ativan However patient still had episode of shivering this morning Likely secondary to tumor burden of multiple hepatic masses Ideally can be given naproxen but will avoid secondary to possible upper GI bleed or if patient resumes heparin Trial of Tylenol for now Episode of delirium likely multifactorial: Ativan, Sepsis, Acute Renal Failure limit Ativan, reduce the dose Resolved Colon cancer: Follows with Dr. Maryanne Nicole with [facility] hematology/oncology in [place] and [facility] -History of resection, chemo, radiation; also with pelvic mets and possible RLL -10/2019 [place] [facility] poorly tolerated -visit with Dr. Nicole 01/2020 patient declined further treatments -CT scan suggesting metastatic hepatic disease, thickening at rectum, lower sigmoid - GI consulted: will need outpatient Colonoscopy Will need ff up with Oncologist Diarrhea likely from Radiation Therapy - resolved initially - C diff gene positive But toxin negative - (+) loose BMs 03/14/20 repeat C diff pending DVT prophylaxis: on Heparin drip Disposition pending usually lives with at home will need PT/OT will need SNF Care discussed with patient and family at the bedside in detail and at length All questions were answered They are understanding, agreeable, comfortable with plan of care Admission and Anticipated Discharge Date Admission Date: March 06, 2020 Subjective Follow-up for sepsis secondary to bacteremia and UTI, acute renal failure, atrial fibrillation This morning, the patient was noted to have dark brown stools, positive FOBT, heparin discontinued On exam the patient is sleeping but easily awakened Awake, alert, oriented x3, speaking sentences with no effort, conversant, answers all questions appropriately States he is feeling tired again today, weaker compared to yesterday Had another episode of shivering earlier this morning, but no fever Denies abdominal pain, nausea vomiting Reports breathing continues to improve, no cough, no sputum production Denies other symptoms Review of Systems Review of Systems: All systems reviewed & are unremarkable except as noted in HPI & below Physical Exam Physical Exam: General- oriented x 3, not in distress, speaks in sentences with no effort or accessory muscle use Eyes- anicteric Neck- no JVD Lungs- clear breath sounds bilaterally, no crackles, no wheezing Heart-mild tachycardia, irregularly irregular rhythm; no murmurs Abdomen- normal bowel sounds, nondistended, soft, nontender Extremities-trace pretibial edema, no calf tenderness Neuro- alert, oriented x 3; no gross focal neurologic deficits Skin- warm & dry Results & Data Results & Data ([facility]) Vital Signs (Past 12 Hours) Vital Signs Temp Pulse Pulse Resp BP Pulse Ox 03/14/20 10:48 37.0 C 130 H 20 101/64 94 03/14/20 08:03 37.3 C 120 H 19 123/63 93 03/14/20 08:00 111 H Laboratory Results Laboratory Results - last 24 hr 03/14/20 03/14/20 03/14/20 05:35 05:35 05:35 WBC 6.52 RBC 2.58 L Hgb 7.1 L Hct 22.0 L MCV 85.3 MCH 27.5 MCHC 32.3 RDW Std Deviation 59.1 H RDW Coeff of Shanita 18.9 H Plt Count 106 L MPV 11.0 H Immature Gran % (Auto) 0.3 Neut % (Auto) 78.0 Lymph % (Auto) 15.6 Grundy % (Auto) 5.4 Eos % (Auto) 0.5 Baso % (Auto) 0.2 Neut # (Auto) 5.09 Lymph # (Auto) 1.02 L Grundy # (Auto) 0.35 Eos # (Auto) 0.03 Baso # (Auto) 0.01 Immature Gran # (Auto) 0.02 Dohle Bodies 1+ Hypochromasia Present Ovalocytes 1+ APTT 49.5 H* PTT Ratio 1.8 Sodium Potassium Chloride Carbon Dioxide Anion Gap BUN Creatinine Est Cr Clr Drug Dosing Est GFR ( Amer) Est GFR (Non-Af Amer) BUN/Creatinine Ratio Glucose Calcium Magnesium Stool Occult Bld Scrn Stl C. diff Tox B Gene Heparin Dep Plt Ab React Heparin Dep Plt Ab OD Blood Type B Positive Antibody Screen NEGATIVE 03/14/20 03/14/20 03/14/20 05:35 05:35 05:45 WBC RBC Hgb Hct MCV MCH MCHC RDW Std Deviation RDW Coeff of Shanita Plt Count MPV Immature Gran % (Auto) Neut % (Auto) Lymph % (Auto) Grundy % (Auto) Eos % (Auto) Baso % (Auto) Neut # (Auto) Lymph # (Auto) Grundy # (Auto) Eos # (Auto) Baso # (Auto) Immature Gran # (Auto) Dohle Bodies Hypochromasia Ovalocytes APTT PTT Ratio Sodium 141 Potassium 3.3 L Chloride 106 Carbon Dioxide 27 Anion Gap 8.0 BUN 51 H Creatinine 2.03 H Est Cr Clr Drug Dosing 36.4 Est GFR ( Amer) 34.6 Est GFR (Non-Af Amer) 29.9 BUN/Creatinine Ratio 25.1 H Glucose 153 H Calcium 7.5 L Magnesium 1.7 L Stool Occult Bld Scrn Positive A Stl C. diff Tox B Gene Heparin Dep Plt Ab React Pending Heparin Dep Plt Ab OD Pending Blood Type Antibody Screen 03/14/20 03/14/20 08:00 16:09 WBC RBC Hgb Pending Hct Pending MCV MCH MCHC RDW Std Deviation RDW Coeff of Shanita Plt Count MPV Immature Gran % (Auto) Neut % (Auto) Lymph % (Auto) Grundy % (Auto) Eos % (Auto) Baso % (Auto) Neut # (Auto) Lymph # (Auto) Grundy # (Auto) Eos # (Auto) Baso # (Auto) Immature Gran # (Auto) Dohle Bodies Hypochromasia Ovalocytes APTT PTT Ratio Sodium Potassium Chloride Carbon Dioxide Anion Gap BUN Creatinine Est Cr Clr Drug Dosing Est GFR ( Amer) Est GFR (Non-Af Amer) BUN/Creatinine Ratio Glucose Calcium Magnesium Stool Occult Bld Scrn Stl C. diff Tox B Gene Cancelled Heparin Dep Plt Ab React Heparin Dep Plt Ab OD Blood Type Antibody Screen
[2020-03-14] MEDS ORDERED: SODIUM CHLORIDE 0.9% 250 ML IV PRN (16:57)
[2020-03-14] MEDS ORDERED: ACETAMINOPHEN 325 MG TAB PO PRN (18:11)
[2020-03-14] MEDS ORDERED: ACETAMINOPHEN 325 MG TAB ONE (18:14)
[2020-03-14] MEDS: TAMSULOSIN HCL 0.4 MG CAP PO SCH (20:08)
[2020-03-14] MEDS: cefTRIAXone SODIUM 2,000 MG in DEXTROSE 5% 50 ML IV SCH (20:09)
[2020-03-15] MEDS: PANTOprazole 40 MG in DEXTROSE 5% 100 ML IV SCH ×5 (02:15→21:21)
[2020-03-15 06:57] LABS: Eosinophils # (auto) 0.03 K/uL (0-0.5); Eosinophils % (auto) 0.4 %; Hemoglobin 7.5 g/dL (14.0-18.0); Immature Granulocytes # (auto) 0.03 K/uL (0.00-0.02); Immature Granulocytes % (auto) 0.4 %; Lymphocytes # (auto) 0.85 K/uL (1.2-3.4); Lymphocytes % (auto) 10.6 %; Mean Corpuscular Hemoglobin 27.9 pg (25-34); Mean Corpuscular Hgb Conc 32.6 g/dL (32-36); Mean Corpuscular Volume 85.5 fL (80-100); Monocytes # (auto) 0.57 K/uL (0.11-0.59); Monocytes % (auto) 7.1 %; Neutrophils # (auto) 6.56 K/uL (1.4-6.5); Neutrophils % (auto) 81.5 %; Platelet Count 103 K/uL (130-400); RDW Coefficient of Variation 18.4 % (11.5-14.5); Red Blood Count 2.69 M/uL (4.7-6.1); White Blood Count 8.04 K/uL (4.8-10.8)
[2020-03-15 07:22] LABS: BUN Creatinine Ratio 23.6 (10-20); Calcium 7.6 mg/dl (8.5-10.1); Creatinine Clr Calc Pharmacy 38.3 ml/min; Est GFR (African American) 36.8; Est GFR (Non-African American) 31.7; Potassium 3.3 mmol/L (3.5-5.1)
[2020-03-15 07:25] LABS: RBC Morphology Unremarkable
[2020-03-15] MEDS: dilTIAZem HCL 300 MG CAPCR PO SCH (07:54)
[2020-03-15] MEDS: METOPROLOL TARTRATE 25 MG TAB PO SCH (07:54)
[2020-03-15] MEDS: POTASSIUM CHLORIDE 20 MEQ TABCR PO SCH ×2 (07:54→21:20)
[2020-03-15] MEDS: FOLIC ACID 400 MCG TAB PO SCH (07:54)
[2020-03-15] MEDS: POTASSIUM CHLORIDE / WTR 10 MEQ/100 ML PLCT IV SCH ×2 (08:37→09:36)
--- NOTE | 2020-03-15 08:38 | Cardiology Progress Note ---
Date of Service March 15, 2020 Assessment & Plan (1) Atrial fibrillation with RVR: He presented with atrial fibrillation with a rapid heart rate, the duration is uncertain. Based on his description of taking his pulse oximetry and blood pressure 2 or 3 days prior to admission and recalling that it was normal it is of relatively recent onset. Intravenous diltiazem helped somewhat with rate control but his heart rate still remained somewhat fast. I started digoxin but he developed nausea which seems to be related to digoxin therefore that has been discontinued. I did switch his diltiazem to oral (240 mg daily), subsequently increased to 300 mg daily. His heart rate remained elevated. Over the weekend beta-blockade was added at 25 mg twice daily. His heart rate is still elevated. He is now off of anticoagulation due to a GI bleed, cardioversion does not seem to be a realistic option at this point. We need to continue with rate control. Currently he is on Diltiazem CD 300 mg daily, metoprolol tartrate 25 mg twice daily for rate control. His blood pressure has not been low for several days. I am going to go up on his metoprolol starting this morning. (2) Cardiomyopathy: He had left ventricular dysfunction when he was ill in the ICU, his ejection fraction was 25 to 30%, however on repeat several days later his ejection fraction was low normal. I suspect his cardiomyopathy was due to stunning due to his illness. At some point we should repeat his echocardiogram but I do not think we need to treat him aggressively for his cardiomyopathy although adding beta blockade for its cardioprotective effect as well as rate co ntrol would be beneficial and he seems to tolerate it. (3) GI bleed: He evidently had a GI bleed from unknown source. This complicates matters considerably as he is now off of anticoagulation. He is at risk of stroke if he is not on anticoagulant, however he is at substantial risk of bleed if we would start anticoagulation. For the moment I would recommend continued rate control, in the future perhaps he can tolerate an anticoagulant or perhaps he will agree to evaluation for a source which would make anticoagulation safer. We could consider sending him somewhere for a Watchman device, however that requires anticoagulation for several months but over the long run we could avoid anticoagulation. I do not think he is a good candidate for it right now but perhaps in the future. Admission and Anticipated Discharge Date Admission Date: March 06, 2020 Subjective He tells me that he feels better today, he denies melena and attributes his feeling better to receiving blood. He has had no further shaking, he tells me he feels weak in general to the point where he feels tired lifting his arms. No palpitations or cardiovascular complaints. Physical Exam Physical Exam: Constitutional: Alert, cooperative and in no distress. HEENT: Unremarkable Neck: No jugular venous distention, carotid pulses are irregular but otherwise normal and equal bilaterally without bruits. Pulmonary: Clear to auscultation bilaterally. Cardiac: Irregular rapid rhythm with no murmur, gallop or rub. Abdomen: Soft, nontender with normal bowel sounds. Extremities: No edema. Distal pulses intact. Neurologic: No focal findings. Gait is steady. Skin: No rash, ecchymoses or petechiae. Results & Data ([facility]) Vital Signs (Past 12 Hours) Vital Signs Temp Pulse Pulse Resp BP BP Pulse Ox 03/15/20 07:52 36.8 C 128 H 20 105/59 L 94 03/15/20 03:23 36.9 C 114 H 17 108/71 94 03/14/20 23:50 36.6 C 108 H 19 106/64 94 03/14/20 23:11 98 H 03/14/20 21:48 36.6 C 115 H 18 100/60 95 03/14/20 21:20 36.6 C 113 H 18 99/61 L 96 Laboratory Results CBC 03/14/20 03/15/20 Range/Units 16:09 06:50 WBC 8.04 (4.8-10.8) K/uL RBC 2.69 L (4.7-6.1) M/uL Hgb 6.8 L* 7.5 L (14.0-18.0) g/dL Hct 20.3 L* 23.0 L (42-52) % Plt Count 103 L (130-400) K/uL Neut # (Auto) 6.56 H (1.4-6.5) K/uL Lymph # (Auto) 0.85 L (1.2-3.4) K/uL Gentry # (Auto) 0.57 (0.11-0.59) K/uL Eos # (Auto) 0.03 (0-0.5) K/uL Baso # (Auto) 0.00 (0-0.2) K/uL Comprehensive Metabolic Panel 03/15/20 Range/Units 06:50 Sodium 142 (136-145) mmol/L Potassium 3.3 L (3.5-5.1) mmol/L Chloride 108 H (98-107) mmol/L Carbon Dioxide 27 (21-32) mmol/L BUN 46 H (7-18) mg/dl Creatinine 1.93 H (0.6-1.4) mg/dl Glucose 137 H (70-99) mg/dl Calcium 7.6 L (8.5-10.1) mg/dl Intake and Output 03/14/20 03/15/20 03/15/20 22:59 06:59 14:59 Intake Total 572.667 / 1238.334 250 / 1238.334 100 / 100 Output Total 600 / 1800 550 / 1800 Balance -27.333 / -561.666 -300 / -561.666 100 / 100 Intake: IV 262.667 / 658.334 100 / 658.334 100 / 100 Protonix 40 mg In D5 100 ml @ 8 192.667 / 358.334 100 / 358.334 100 / 100 MG/HR 20 mls/hr IV Q5H [facility] Rx# :[id number] Rocephin 2,000 mg In D5w 50 ml 70 / 70 @ 140 mls/hr IV DAILY@2100 [facility] Rx#:[id number] Oral 150 / 270 Intake (Blood Product) Amt 310 / 310 Packed Cells, Leukoreduced 310 / 310 Unit [id number] Output: Urine Amount (Catheter) 600 / 1800 550 / 1800 Fernandes/Indwelling 600 / 1800 550 / 1800 Other: Weight 102.1 kg Diagnostic Findings Telemetry: Atrial fibrillation with a rapid heart rate, overnight his average appears to be around 100, this morning somewhat faster. PG Care Time/CCT Total # of Minutes Spent Total Time Spent with Patient: Total time spent is greater than 50% in coordination of care (as documented) at patient's floor/unit and/or counseling patient: Coding Level of Care Code 24667 Subseq Hosp Care Lvl 3 Diagnoses Atrial fibrillation with RVR I48.91 Cardiomyopathy I42.9 GI bleed K92.2
[2020-03-15] MEDS ORDERED: METOPROLOL TARTRATE 25 MG TAB PO ONE (09:00)
[2020-03-15] MEDS: IRON SUCROSE 200 MG in 0.9 % SODIUM CHLORIDE 100 ML IV SCH (09:36)
--- NOTE | 2020-03-15 09:37 | Nephrology Progress Note ---
Date of Service March 15, 2020 Assessment & Plan (1) BRYAN (acute kidney injury): Patient with acute kidney injury due to combination of ATN from sepsis and obstructive uropathy. Baseline creatinine of 1.1. Creatinine peaked at 2.7. Creatinine is improving at 1.9 today. No signs of volume overload. We will hold off on Lasix today. -Monitor input output -Daily BMP -Avoid contrast unless lifesaving. (2) Acute urinary retention: Likely in setting of radiotherapy. Continue Fernandes catheter until urology follow-up possible outpatient. (3) Hypokalemia: Due to diarrhea. K of 3.3 today. Increase potassium to 40 mEq p.o. twice daily. Patient also received additional 20 mEq IV today. (4) Anemia: Multifactorial etiology including anemia of malignancy and sepsis. Monitor and transfuse as needed. Iron saturation of 5.6%. We will give IV Venofer 200 mg daily for 5 days. No need for Epogen in setting of malignancy. Admission and Anticipated Discharge Date Admission Date: March 06, 2020 Subjective Patient complains of weakness and stool incontinence. Stool is more formed now. No shortness of breath. Potassium remains low. Creatinine is stable. He required a unit of blood yesterday Review of Systems Review of Systems: All systems reviewed & are unremarkable except as noted in HPI & below Physical Exam Physical Exam: General exam: Appears comfortable, no acute distress HEENT: Pupils are equal and reactive to light Neck: No JVD, neck is supple trachea is midline Respiratory system: Clear breath sounds bilaterally. Gastrointestinal: Abdomen is soft, non distended, non tender, bowel sounds are present CVS: Regular rate and rhythm. No murmurs, rubs or gallops Musculoskeletal: No joint or muscle tenderness Extremities: Non tender, no edema, peripheral pulses are present Neuro: Oriented, no tremors, no focal neurological deficits Skin: No rashes Results & Data ([facility]) Vital Signs (Past 12 Hours) Vital Signs Temp Pulse Pulse Resp BP BP Pulse Ox 03/15/20 07:52 36.8 C 128 H 20 105/59 L 94 03/15/20 03:23 36.9 C 114 H 17 108/71 94 03/14/20 23:50 36.6 C 108 H 19 106/64 94 03/14/20 23:11 98 H 03/14/20 21:48 36.6 C 115 H 18 100/60 95 Laboratory Results 03/15/20 06:50 03/15/20 06:50 WBC 8.04 RBC 2.69 L MCV 85.5 MCH 27.9 MCHC 32.6 RDW Std Deviation 57.0 H RDW Coeff of Shanita 18.4 H Plt Count 103 L MPV 11.0 H
--- NOTE | 2020-03-15 10:38 | Hospitalist Progress Note ---
Date of Service March 15, 2020 Assessment & Plan (1) Septic shock: Severe sepsis: secondary to E coli Bacteremia, UTI Episodes of tremors/shivering -80-year-old male with history of colon cancer status post chemotherapy and radiation therapy, Presenting with generalized weakness and diarrhea times few weeks. He was initially admitted for sepsis secondary to E. coli bacteremia and UTI, with associated acute renal failure, onset atrial fibrillation in RVR (On presentation: BP 77/62, HR 153, afebrile, lactic acid 4.8) -The admission 03/06/2020 blood cultures and urine cultures with E.coli. Repeat blood culture on 03/10/2020 no growth -during this hospital stay, patient was on Doxycycline and then Cefepime IV for possible pneumonia--> per family, patient noted to have severe tremors after receiving cefepime IV and Doxycycline IV; requested to stop these antibiotics -previous hospitalist had noted that episodes of tremors and shivering continued even after antibiotic adjustment and that these symptoms may reflect tumor burden of multiple hepatic masses Ideally can be given naproxen but will avoid secondary to possible upper GI bleed or if patient resumes heparin -currently on ceftriaxone IV. estimated total antibiotic duration as 2 weeks, acetaminophen prn BRYAN (acute kidney injury) Urinary retention secondary to bladder outlet obstruction Possible hematuria -admission Creatinine 2.7 compared to baseline of 1.1 -Patient with acute kidney injury due to combination of ATN from sepsis and obstructive uropathy. -Marin placed in the ED, urologist consulted recommending to maintain Marin catheter, voiding trial as an outpatient -Marin catheter draining blood-tinged urine. continue marin, urine is yellow -IV fluids were given, Trans Router following the patient while in hospital, creatinine plateau around 2, Lasix was also given on this admission to treat volume overload in the context of IV fluids in the in the setting of cardiomyopathy per Echo -Nephrology 03/15/2020: creatinine is improving at 1.9 today. No signs of volume overload. We will hold off on Lasix today. Volume Overload secondary to Cardiomyopathy in the Setting of Acute Renal Failure -as per cardiology consultation: "He had left ventricular dysfunction when he was ill in the ICU, his ejection fraction was 25 to 30%, however on repeat several days later his ejection fraction was low normal (50-55%, no regional wall motion abnormalities). I suspect his cardiomyopathy was due to stunning due to his illness. At some point we should repeat his echocardiogram but I do not think we need to treat him aggressively for his cardiomyopathy although adding beta blockade for its cardioprotective effect as well as rate control would be beneficial and he seems to tolerate it." -management as above Hypokalemia Hypomagnesemia -admission serum potassium 2.8 and had potassium and magnesium supplementation on this hospital stay -given additional potassium on 03/15/2020 Atrial fibrillation with RVR: -On presentation, patient in atrial fibrillation with RVR with rates in the 150s -cardiology 03/15/2020 progress note "He presented with atrial fibrillation with a rapid heart rate, the duration is uncertain. Based on his description of taking his pulse oximetry and blood pressure 2 or 3 days prior to admission and recalling that it was normal it is of relatively recent onset. Intravenous diltiazem helped somewhat with rate control but his heart rate still remained somewhat fast. I started digoxin but he developed nausea which seems to be related to digoxin therefore that has been discontinued. I did switch his diltiazem to oral (240 mg daily), subsequently increased to 300 mg daily. His heart rate remained elevated. Over the weekend beta-blockade was added at 25 mg twice daily. His heart rate is still elevated. He is now off of anticoagulation due to a GI bleed, cardioversion does not seem to be a realistic option at this point. We need to continue with rate control. Currently he is on Diltiazem CD 300 mg daily, metoprolol tartrate 25 mg twice daily for rate control. His blood pressure has not been low for several days. I am going to go up on his metoprolol starting this morning." Anemia with iron deficiency Possible upper GI bleed, hematuria Epistaxis -admission Hgb 8.1 compared to 10.9 on 11/2019, subsequent downtrend on this hospital stay. 03/13/2020: FOBT positive, Heparin discontinued, Protonix drip started. 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 Nicole 01/2020 patient declined further treatments -CT scan suggesting metastatic hepatic disease, thickening at rectum, lower sigmoid Diarrhea likely from Radiation Therapy - resolved initially - C diff gene positive But toxin negative - (+) loose BMs 03/14/20, repeat C. difficile were ordered Episode of delirium Resolved DVT prophylaxis: SCD Disposition : may need placement to facility after the hospital stay such as physical therapy center versus [facility] facility for physical therapy. COVID-19 test ordered on 03/15/2020 as a screening tool prior to hospital discharge Admission and Anticipated Discharge Date Admission Date: March 06, 2020 Subjective Patient not in acute distress. He did report some subjective feeling of chills after breakfast but otherwise this resolved at time of exam. afebrile. patient speaking comfortably with nasal cannula off the nose. No chest pain. no dizziness. no headache. has marin. has IV vebofer, IV pantoprazole, IV potassium running. no chest pain. heart rates in the high 90s to low 100s. Review of Systems Review of Systems: All systems reviewed & are unremarkable except as noted in Subjective Physical Exam Constitutional: comfortable Eyes: PERRL, conjunctivae normal, anicteric sclerae EOM intact bilaterally ENMT: external ear and nose normal, oropharynx normal Neck: trachea midline, no thyromegaly normal visual inspection Respiratory: normal respiratory effort, lungs clear to auscultation Cardiovascular: Rate/Rhythm: + tachycardic Gastrointestinal (Abdomen): normal bowel sounds, soft, nontender, no hepatosplenomegaly Musculoskeletal: Head/Neck/Chest: normocephalic and head atraumatic Neurologic: PERRL, EOMI, accommodation nl, no face palsy, no dysarthria Psychiatric: A+Ox3, euthymic affect Genitourinary: + penis abnormality (marin) Results & Data Results & Data ([facility]) Vital Signs (Past 12 Hours) Vital Signs Temp Pulse Pulse Resp BP Pulse Ox 03/15/20 09:42 106 H 104/66 03/15/20 07:52 36.8 C 128 H 20 105/59 L 94 03/15/20 03:23 36.9 C 114 H 17 108/71 94 03/14/20 23:50 36.6 C 108 H 19 106/64 94 03/14/20 23:11 98 H
[2020-03-15] MEDS ORDERED: MAGNESIUM SULFATE / D5W 1 GM/100 ML BAG IV ONE (15:45)
[2020-03-15] MEDS: METOPROLOL TARTRATE 1 MG/ML VIAL IV PRN (16:18)
[2020-03-15 18:06] LABS: Cdiff Antigen Positive; Cdiff Toxin A+B Negative Cdiff Toxin (Negative)
[2020-03-15] MEDS ORDERED: METOPROLOL TARTRATE 25 MG TAB PO STA (18:16)
[2020-03-15] MEDS ORDERED: METOPROLOL TARTRATE 50 MG TAB PO SCH (21:00)
[2020-03-15] MEDS: TAMSULOSIN HCL 0.4 MG CAP PO SCH (21:20)
[2020-03-15] MEDS: cefTRIAXone SODIUM 2,000 MG in DEXTROSE 5% 50 ML IV SCH (21:21)
[2020-03-16] MEDS: PANTOprazole 40 MG in DEXTROSE 5% 100 ML IV SCH ×2 (02:26→07:23)
[2020-03-16 07:29] LABS: Eosinophils # (auto) 0.01 K/uL (0-0.5); Eosinophils % (auto) 0.1 %; Hematocrit (blood only) 23.4 % (42-52); Hemoglobin 7.7 g/dL (14.0-18.0); Immature Granulocytes # (auto) 0.03 K/uL (0.00-0.02); Immature Granulocytes % (auto) 0.4 %; Lymphocytes # (auto) 0.98 K/uL (1.2-3.4); Lymphocytes % (auto) 11.8 %; Mean Corpuscular Hemoglobin 28.3 pg (25-34); Mean Corpuscular Hgb Conc 32.9 g/dL (32-36); Monocytes # (auto) 0.44 K/uL (0.11-0.59); Monocytes % (auto) 5.3 %; Neutrophils # (auto) 6.83 K/uL (1.4-6.5); Neutrophils % (auto) 82.4 %; Platelet Count 107 K/uL (130-400); RDW Coefficient of Variation 18.7 % (11.5-14.5); RDW Standard Deviation 58.5 fL (36.4-46.3); Red Blood Count 2.72 M/uL (4.7-6.1); White Blood Count 8.29 K/uL (4.8-10.8)
[2020-03-16 07:58] LABS: BUN Creatinine Ratio 21.5 (10-20); Creatinine Clr Calc Pharmacy 38.5 ml/min; Est GFR (Non-African American) 31.9; Magnesium 2.1 mg/dl (1.8-2.4); Potassium 3.6 mmol/L (3.5-5.1)
[2020-03-16 08:17] LABS: Dohle Bodies 1+; Hypochromasia Present; Tear Drop Cells 1+
--- NOTE | 2020-03-16 08:32 | Nephrology Progress Note ---
Date of Service March 16, 2020 Assessment & Plan (1) BRYAN (acute kidney injury): Patient with acute kidney injury due to combination of ATN from sepsis and obstructive uropathy. Baseline creatinine of 1.1. Creatinine peaked at 2.7. Creatinine is stable at 1.9 today. No signs of volume overload. -Monitor input output -Daily BMP -Avoid contrast unless lifesaving. -If discharged, he needs a BMP on Friday next week and renal follow up in 2 weeks (2) Acute urinary retention: Likely in setting of radiotherapy. Continue Fernandes catheter until urology follow-up possible outpatient. (3) Hypokalemia: Due to diarrhea. K of 3.6 today. continue potassium to 40 mEq p.o. twice daily. Patient can be discharged on the same. (4) Anemia: Multifactorial etiology including anemia of malignancy and sepsis. Monitor and transfuse as needed. Iron saturation of 5.6%. We will give IV Venofer 200 mg daily for 5 days. No need for Epogen in setting of malignancy. If patient is ready for discharge, he cant continue iron as outpatient Admission and Anticipated Discharge Date Admission Date: March 06, 2020 Subjective He is not happy about frequent blood draws. No SOB. No pain. Diarrheoa is less. Review of Systems Review of Systems: All systems reviewed & are unremarkable except as noted in HPI & below Physical Exam Physical Exam: General exam: Appears comfortable, no acute distress HEENT: Pupils are equal and reactive to light Neck: No JVD, neck is supple trachea is midline Respiratory system: Clear breath sounds bilaterally. Gastrointestinal: Abdomen is soft, non distended, non tender, bowel sounds are present CVS: Regular rate and rhythm. No murmurs, rubs or gallops Musculoskeletal: No joint or muscle tenderness Extremities: Non tender, 1+ edema R>L, peripheral pulses are present Neuro: Oriented, no tremors, no focal neurological deficits Skin: No rashes Results & Data ([facility]) Vital Signs (Past 12 Hours) Vital Signs Temp Pulse Pulse Resp BP Pulse Ox 03/16/20 07:36 121 H 03/16/20 07:06 36.9 C 125 H 18 112/63 95 03/16/20 03:26 36.8 C 118 H 19 102/64 93 03/16/20 00:02 115 H 03/15/20 23:51 36.8 C 122 H 20 117/82 94 03/15/20 20:37 37.0 C 121 H 20 124/62 95 Laboratory Results 03/16/20 07:12 03/16/20 07:12 WBC 8.29 RBC 2.72 L MCV 86.0 MCH 28.3 MCHC 32.9 RDW Std Deviation 58.5 H RDW Coeff of Shanita 18.7 H Plt Count 107 L MPV 11.0 H
[2020-03-16] MEDS: IRON SUCROSE 200 MG in 0.9 % SODIUM CHLORIDE 100 ML IV SCH (09:14)
[2020-03-16] MEDS: dilTIAZem HCL 300 MG CAPCR PO SCH (09:14)
[2020-03-16] MEDS: METOPROLOL TARTRATE 50 MG TAB PO SCH ×3 (09:14→20:51)
[2020-03-16] MEDS: FOLIC ACID 400 MCG TAB PO SCH (09:14)
[2020-03-16] MEDS: POTASSIUM CHLORIDE 20 MEQ TABCR PO SCH ×2 (09:15→20:50)
[2020-03-16] MEDS ORDERED: ACETAMINOPHEN 325 MG TAB PO PRN (10:37)
--- NOTE | 2020-03-16 10:39 | Hospitalist Progress Note ---
Date of Service March 16, 2020 Assessment & Plan (1) Septic shock: Severe sepsis: secondary to E coli Bacteremia, UTI Episodes of tremors/shivering -80-year-old male with history of colon cancer status post chemotherapy and radiation therapy, Presenting with generalized weakness and diarrhea times few weeks. He was initially admitted for sepsis secondary to E. coli bacteremia and UTI, with associated acute renal failure, onset atrial fibrillation in RVR (On presentation: BP 77/62, HR 153, afebrile, lactic acid 4.8) -The admission 03/06/2020 blood cultures and urine cultures with E.coli. Repeat blood culture on 03/10/2020 no growth -during this hospital stay, patient was on Doxycycline and then Cefepime IV for possible pneumonia--> per family, patient noted to have severe tremors after receiving cefepime IV and Doxycycline IV; requested to stop these antibiotics -previous hospitalist had noted that episodes of tremors and shivering continued even after antibiotic adjustment and that these symptoms may reflect tumor burden of multiple hepatic masses Ideally can be given naproxen but will avoid secondary to possible upper GI bleed or if patient resumes heparin -currently on ceftriaxone IV. estimated total antibiotic duration as 2 weeks, acetaminophen prn BRYAN (acute kidney injury) Urinary retention secondary to bladder outlet obstruction Possible hematuria -admission Creatinine 2.7 compared to baseline of 1.1 -Patient with acute kidney injury due to combination of ATN from sepsis and obstructive uropathy. -Marin placed in the ED, urologist consulted recommending to maintain Marin catheter, voiding trial as an outpatient -Marin catheter draining blood-tinged urine. continue marin, urine is yellow -IV fluids were given, Pest Locator following the patient while in hospital, creatinine plateau around 2, Lasix was also given on this admission to treat volume overload in the context of IV fluids in the in the setting of cardiomyopathy per Echo -Nephrology 03/15/2020: creatinine is improving at 1.9 today. No signs of volume overload. We will hold off on Lasix today. -03/16/2020; creatinine remains 1.9 Volume Overload secondary to Cardiomyopathy in the Setting of Acute Renal Failure -as per cardiology consultation: "He had left ventricular dysfunction when he was ill in the ICU, his ejection fraction was 25 to 30%, however on repeat several days later his ejection fraction was low normal (50-55%, no regional wall motion abnormalities). I suspect his cardiomyopathy was due to stunning due to his illness. At some point we should repeat his echocardiogram but I do not think we need to treat him aggressively for his cardiomyopathy although adding beta blockade for its cardioprotective effect as well as rate control would be beneficial and he seems to tolerate it." -management as above Hypokalemia Hypomagnesemia -admission serum potassium 2.8 and had potassium and magnesium supplementation on this hospital stay -given additional potassium on 03/15/2020 - 03/16/2020 on potassium supplements 40 mg BID as per nephrology Atrial fibrillation with RVR: -On presentation, patient in atrial fibrillation with RVR with rates in the 150s -cardiology 03/15/2020 progress note "He presented with atrial fibrillation with a rapid heart rate, the duration is uncertain. Based on his description of taking his pulse oximetry and blood pressure 2 or 3 days prior to admission and recalling that it was normal it is of relatively recent onset. Intravenous diltiazem helped somewhat with rate control but his heart rate still remained somewhat fast. I started digoxin but he developed nausea which seems to be related to digoxin therefore that has been discontinued. I did switch his diltiazem to oral (240 mg daily), subsequently increased to 300 mg daily. His heart rate remained elevated. Over the weekend beta-blockade was added at 25 mg twice daily. His heart rate is still elevated. He is now off of anticoagulation due to a GI bleed, cardioversion does not seem to be a realistic option at this point. We need to continue with rate control. Currently he is on Diltiazem CD 300 mg daily, metoprolol tartrate 25 mg twice daily for rate control. His blood pressure has not been low for several days. I am going to go up on his metoprolol starting this morning." -03/16/2020: currently on diltiazem 300 mg daily and scheduled metoprolol as 50 mg TID for now Anemia with iron deficiency Possible upper GI bleed, hematuria Epistaxis -admission Hgb 8.1 compared to 10.9 on 11/2019, subsequent downtrend on this hospital stay. 03/13/2020: FOBT positive, Heparin discontinued, Protonix drip started. Hemoglobin 6.8 on 03/14/2020 and 1 unit of PRBC given with Hgb 7.5 on 03/15/2020 -patient has been givenIV venofer by nephrology as inpatient -epistaxis occurred when patient was on heparin IV earlier on this admission; afrin spray applied to the right nostril , packed with small piece of gauze , epistaxis resolved -no current plans for endoscopy or flex sigmoidoscopy because patient deferred procedures and because of history of radiation proctitis -03/16/2020: patient's to visit and will discuss patient's anemia with systemic anticoagulation remains held, pantoprazole IV drip switched to 40 mg IV BID for now as the HGB stable for now Colon cancer with metastasis - Follows with Dr. Maryanne Nicole with [facility] hematology/oncology in [place] and [facility] -History of resection, chemo, radiation; also with pelvic mets and possible RLL -10/2019 received re-irradiation and Xelda at [facility] [place] - poorly tolerated -visit with Dr. Nicole 01/2020 patient declined further treatments -CT scan suggesting metastatic hepatic disease, thickening at rectum, lower si gmoid Clostridium difficile carrier Diarrhea -diarrhea likely from Radiation Therapy, diarrhea appears to be resolving -his C.difficile tests are gene positive but toxin negative (03/08/2020, 03/15/2020), contact precautions Episode of delirium -Resolved DVT prophylaxis: SCD Disposition : may need placement to facility after the hospital stay such as physical therapy center versus long term facility for physical therapy. COVID-19 test ordered on 03/15/2020 as a screening tool prior to hospital discharge Admission and Anticipated Discharge Date Admission Date: March 06, 2020 Subjective no acute distress. sinus tachycardia still present and needed additional metoprolol yesterday. no palpitations. no chest pain. breathing on room air. patient has not wished to get from bed to chair with nursing assistance due to patient expressing he feels tired. no vomiting. no dizziness. Review of Systems Review of Systems: All systems reviewed & are unremarkable except as noted in Subjective Physical Exam Constitutional: comfortable Eyes: PERRL, conjunctivae normal, anicteric sclerae EOM intact bilaterally ENMT: external ear and nose normal, oropharynx normal Neck: trachea midline, no thyromegaly normal visual inspection Respiratory: normal respiratory effort, lungs clear to auscultation Cardiovascular: Rate/Rhythm: + tachycardic Gastrointestinal (Abdomen): normal bowel sounds, soft, nontender, no hepatosplenomegaly Musculoskeletal: Head/Neck/Chest: normocephalic and head atraumatic Neurologic: PERRL, EOMI, accommodation nl, no face palsy, no dysarthria Psychiatric: A+Ox3, euthymic affect Genitourinary: + penis abnormality (marin) Results & Data Results & Data ([facility]) Vital Signs (Past 12 Hours) Vital Signs Temp Pulse Pulse Resp BP Pulse Ox 03/16/20 07:36 121 H 03/16/20 07:06 36.9 C 125 H 18 112/63 95 03/16/20 03:26 36.8 C 118 H 19 102/64 93 03/16/20 00:02 115 H 03/15/20 23:51 36.8 C 122 H 20 117/82 94
[2020-03-16 16:44] LABS: Plt Ab, Heparin Induced Negative (Negative)
[2020-03-16] MEDS: PANTOprazole 40 MG in SYRINGE 0 ML IV SCH (20:49)
[2020-03-16] MEDS: TAMSULOSIN HCL 0.4 MG CAP PO SCH (20:50)
[2020-03-16] MEDS: cefTRIAXone SODIUM 2,000 MG in DEXTROSE 5% 50 ML IV SCH (20:50)
[2020-03-17] MEDS: METOPROLOL TARTRATE 1 MG/ML VIAL IV PRN (05:40)
[2020-03-17] MEDS ORDERED: METOPROLOL TARTRATE 1 MG/ML VIAL IV STA (06:11)
[2020-03-17] MEDS: dilTIAZem HCL 300 MG CAPCR PO SCH (06:23)
[2020-03-17] MEDS: POTASSIUM CHLORIDE 20 MEQ TABCR PO SCH (08:55)
[2020-03-17] MEDS: METOPROLOL TARTRATE 50 MG TAB PO SCH ×2 (08:55→13:11)
[2020-03-17] MEDS: IRON SUCROSE 200 MG in 0.9 % SODIUM CHLORIDE 100 ML IV SCH (08:55)
[2020-03-17] MEDS: FOLIC ACID 400 MCG TAB PO SCH (08:56)
[2020-03-17] MEDS: PANTOprazole 40 MG in SYRINGE 0 ML IV SCH (08:58)
--- NOTE | 2020-03-17 09:54 | Cardiology Progress Note ---
Date of Service March 17, 2020 Assessment & Plan (1) Atrial fibrillation with RVR: He presented with atrial fibrillation with a rapid heart rate, the duration is uncertain. Based on his description of taking his pulse oximetry and blood pressure 2 or 3 days prior to admission and recalling that it was normal the arrhythmia is probably of relatively recent onset. Intravenous diltiazem helped somewhat with rate control but his heart rate still remained somewhat fast. I started digoxin but he developed nausea which seems to be related to digoxin therefore that has been discontinued. His level was 1.4 when he was complaining of nausea. I did switch his diltiazem to oral (240 mg erwin y), subsequently increased to 300 mg daily. His heart rate has remained elevated. Over the weekend beta-blockade was added at 25 mg twice daily. His heart rate was still elevated. His metoprolol has been increased, currently 50 mg 4 times daily and his heart rate remains elevated however but his blood pressure has been stable. I do not know that we can achieve much better heart rate control under the circumstances and perhaps we do not need it. We could consider adding low-dose digoxin (0.125 mg 3 times a week) and see whether he tolerates that and that may help somewhat with his heart rate. I have not done that. He is now off of anticoagulation due to a GI bleed, cardioversion does not seem to be a realistic option at this point. (2) Cardiomyopathy: He had left ventricular dysfunction when he was ill in the ICU, his ejection fraction was 25 to 30%, however on repeat several days later his ejection fraction was low normal. I suspect his cardiomyopathy was due to stunning due to his illness. At some point we should repeat his echocardiogram but I do not think we need to treat him aggressively for his cardiomyopathy although adding beta blockade for its cardioprotective effect as well as rate control would be beneficial and he seems to tolerate it. I am going to schedule him for a limited echocardiogram on Friday to see whether his ejection fraction has suffered from the high heart rate or normalized. He has no symptoms of heart failure currently. (3) GI bleed: He evidently had a GI bleed from unknown source. This complicates matters considerably as he is now off of anticoagulation. He is at risk of stroke if he is not on anticoagulant, however he is at substantial risk of bleed if we would start anticoagulation. For the moment I would recommend continued rate control, in the future perhaps he can tolerate an anticoagulant or perhaps he will agree to evaluation for a source which would make anticoagulation safer if identified and treated. We could consider sending him somewhere for a Watchman device, however that requires anticoagulation for several months but over the long run we could avoid anticoagulation, although he would need platelet inhibitors. I do not think he is a good candidate for it right now but perhaps in the future. I will not be here over the weekend, Dr. White will be covering the service and if help is needed with the patient's cardiac care please contact him. Admission and Anticipated Discharge Date Admission Date: March 06, 2020 Subjective He tells me that he had another 1 of his "vibrating session" this morning, which he feels drives up his heart rate. He has not been aware of his heart rate, other than the shaking that he gets he is feeling relatively well and is not short of breath and has no chest discomfort. He is still off of his anticoagulant due to his GI bleed. Physical Exam Physical Exam: Constitutional: Alert, cooperative and in no distress. HEENT: Unremarkable Neck: No jugular venous distention, carotid pulses are irregular but otherwise normal and equal bilaterally without bruits. Pulmonary: Clear to auscultation bilaterally. Cardiac: Irregular rapid rhythm with no murmur, gallop or rub. Abdomen: Soft, nontender with normal bowel sounds. Extremities: No edema. Distal pulses intact. Neurologic: No focal findings. Gait is steady. Skin: No rash, ecchymoses or petechiae. Results & Data ([facility]) Vital Signs (Past 12 Hours) Vital Signs Temp Pulse Pulse Pulse Resp BP BP 03/17/20 08:05 37.5 C 148 H 20 03/17/20 06:23 145 H 117/72 03/17/20 05:40 148 H 122/65 03/17/20 02:59 36.9 C 125 H 20 03/17/20 00:00 36.7 C 108 H 18 102/73 BP Pulse Ox 03/17/20 08:05 117/57 L 93 03/17/20 06:23 03/17/20 05:40 03/17/20 02:59 92/59 L 96 03/17/20 00:00 97 Laboratory Results Intake and Output 03/16/20 03/17/20 03/17/20 22:59 06:59 14:59 Intake Total 520 / 1034.667 240 / 1034.667 110 / 110 Output Total 550 / 1751 701 / 1751 Balance -30 / -716.333 -461 / -716.333 110 / 110 Intake: IV 70 / 344.667 110 / 110 Venofer 200 mg In Sodium 110 / 110 Chloride 100 ml @ 220 mls/hr IV DAILY JOIE Rx#:[id number] Rocephin 2,000 mg In D5w 50 ml 70 / 70 @ 140 mls/hr IV DAILY@2100 JOIE Rx#:[id number] Oral 450 / 690 240 / 690 Output: Urine Amount (Catheter) 550 / 1750 700 / 1750 Fernandes/Indwelling 550 / 1750 700 / 1750 # Bowel Movements Diagnostic Findings Telemetry: He remains in atrial fibrillation with a rapid heart rate. His heart rate is up to 140-150 at times, but only briefly. This morning he did have a high heart rate during 1 of his episodes of tremors. PG Care Time/CCT Total # of Minutes Spent Total Time Spent with Patient: Total time spent is greater than 50% in coordination of care (as documented) at patient's floor/unit and/or counseling patient: Coding Level of Care Code 95035 Subseq Hosp Care Lvl 2 Diagnoses Atrial fibrillation with RVR I48.91 Cardiomyopathy I42.9 GI bleed K92.2
--- NOTE | 2020-03-17 10:02 | Hospitalist Progress Note ---
Date of Service March 17, 2020 Assessment & Plan (1) Septic shock: Severe sepsis: secondary to E coli Bacteremia, UTI Episodes of tremors/shivering -80-year-old male with history of colon cancer status post chemotherapy and radiation therapy, Presenting with generalized weakness and diarrhea times few weeks. He was initially admitted for sepsis secondary to E. coli bacteremia and UTI, with associated acute renal failure, onset atrial fibrillation in RVR (On presentation: BP 77/62, HR 153, afebrile, lactic acid 4.8) -The admission 03/06/2020 blood cultures and urine cultures with E.coli. Repeat blood culture on 03/10/2020 no growth -during this hospital stay, patient was on Doxycycline and then Cefepime IV for possible pneumonia--> per family, patient noted to have severe tremors after receiving cefepime IV and Doxycycline IV; requested to stop these antibiotics -previous hospitalist had noted that episodes of tremors and shivering continued even after antibiotic adjustment and that these symptoms may reflect tumor burden of multiple hepatic masses Ideally can be given naproxen but will avoid secondary to possible upper GI bleed or if patient resumes heparin -currently on ceftriaxone IV. estimated total antibiotic duration as 2 weeks, ac etaminophen prn BRYAN (acute kidney injury) Urinary retention secondary to bladder outlet obstruction Possible hematuria -admission Creatinine 2.7 compared to baseline of 1.1 -Patient with acute kidney injury due to combination of ATN from sepsis and obstructive uropathy. -Marin placed in the ED, urologist consulted recommending to maintain Marin catheter, voiding trial as an outpatient -Marin catheter draining blood-tinged urine. continue marin, urine is yellow -IV fluids were given, [employer] Sales Leader following the patient while in hospital, creatinine plateau around 2, Lasix was also given on this admission to treat volume overload in the context of IV fluids in the in the setting of cardiomyopathy per Echo -Nephrology 03/15/2020: creatinine is improving at 1.9 today. No signs of volume overload. We will hold off on Lasix today. -03/16/2020; creatinine remains 1.9 Volume Overload secondary to Cardiomyopathy in the Setting of Acute Renal Failure -as per cardiology consultation: "He had left ventricular dysfunction when he was ill in the ICU, his ejection fraction was 25 to 30%, however on repeat several days later his ejection fraction was low normal (50-55%, no regional wall motion abnormalities). I suspect his cardiomyopathy was due to stunning due to his illness. At some point we should repeat his echocardiogram but I do not think we need to treat him aggressively for his cardiomyopathy although adding beta blockade for its cardioprotective effect as well as rate control would be beneficial and he seems to tolerate it." -management as above Hypokalemia Hypomagnesemia -admission serum potassium 2.8 and had potassium and magnesium supplementation on this hospital stay -given additional potassium on 03/15/2020 - 03/16/2020 on potassium supplements 40 mg BID as per nephrology Atrial fibrillation with RVR: -On presentation, patient in atrial fibrillation with RVR with rates in the 150s -cardiology 03/15/2020 progress note "He presented with atrial fibrillation with a rapid heart rate, the duration is uncertain. Based on his description of taking his pulse oximetry and blood pressure 2 or 3 days prior to admission and recalling that it was normal it is of relatively recent onset. Intravenous diltiazem helped somewhat with rate control but his heart rate still remained somewhat fast. I started digoxin but he developed nausea which seems to be related to digoxin therefore that has been discontinued. I did switch his diltiazem to oral (240 mg daily), subsequently increased to 300 mg daily. His heart rate remained elevated. Over the weekend beta-blockade was added at 25 mg twice daily. His heart rate is still elevated. He is now off of anticoagulation due to a GI bleed, cardioversion does not seem to be a realistic option at this point. We need to continue with rate control. Currently he is on Diltiazem CD 300 mg daily, metoprolol tartrate 25 mg twice daily for rate control. His blood pressure has not been low for several days. I am going to go up on his metoprolol starting this morning." -03/16/2020: currently on diltiazem 300 mg daily and scheduled metoprolol as 50 mg TID for now -03/17/2020: currently on diltiazem 300 mg daily and metoprolol is increased to 50 mg QID, [facility]iology following the patient and offering suggestion of low dose (0.125 mcg mg three times a week), will monitor on calcium channel or beta blockers first Anemia with iron deficiency Possible upper GI bleed, hematuria Epistaxis -admission Hgb 8.1 compared to 10.9 on 11/2019, subsequent downtrend on this hospital stay. 03/13/2020: FOBT positive, Heparin discontinued, Protonix drip started. Hemoglobin 6.8 on 03/14/2020 and 1 unit of PRBC given with Hgb 7.5 on 03/15/2020 -patient has been givenIV venofer by nephrology as inpatient -epistaxis occurred when patient was on heparin IV earlier on this admission; afrin spray applied to the right nostril , packed with small piece of gauze , epistaxis resolved -no current plans for endoscopy or flex sigmoidoscopy because patient deferred procedures and because of history of radiation proctitis -03/16/2020: patient's to visit and will discuss patient's anemia with systemic anticoagulation remains held, pantoprazole IV drip switched to 40 mg IV BID for now as the HGB stable for now Colon cancer with metastasis - Follows with Dr. Maryanne Nicole with [facility] hematology/oncology in [place] and [facility] -History of resection, chemo, radiation; also with pelvic mets and possible RLL -10/2019 received re-irradiation and Xelda at [facility] [place] - poorly tolerated -visit with Dr. Nicole 01/2020 patient declined further treatments -CT scan suggesting metastatic hepatic disease, thickening at rectum, lower sigmoid Clostridium difficile carrier Diarrhea -diarrhea likely from Radiation Therapy, diarrhea appears to be resolving -his C.difficile tests are gene positive but toxin negative (03/08/2020, 03/15/2020), contact precautions Episode of delirium -Resolved DVT prophylaxis: SCD Disposition : may need placement to facility after the hospital stay such as physical therapy center versus [facility] facility for physical therapy. COVID-19 test ordered on 03/15/2020 as a screening tool prior to hospital discharge. Patient voice to me about considerations for discharge to home with home services in the future and I discussed with dependency case manager on 03/17/2020 Admission and Anticipated Discharge Date Admission Date: March 06, 2020 Subjective Patient voice to me about considerations for discharge to home with home services in the future and I discussed with dependency case manager on 03/17/2020 continues to have atrial fibrillation with rapid ventricular response and sometimes in the 140s. Patient with no distress. he does not feel palpitations. denies dizziness. no headache. no abdominal pain. no vomiting. Review of Systems Review of Systems: All systems reviewed & are unremarkable except as noted in Subjective Physical Exam Constitutional: comfortable Eyes: PERRL, conjunctivae normal, anicteric sclerae EOM intact bilaterally ENMT: external ear and nose normal, oropharynx normal Neck: trachea midline, no thyromegaly normal visual inspection Respiratory: normal respiratory effort, lungs clear to auscultation Cardiovascular: Rate/Rhythm: + tachycardic and + irregularly irregular Gastrointestinal (Abdomen): normal bowel sounds, soft, nontender, no hepatosplenomegaly Musculoskeletal: Head/Neck/Chest: normocephalic and head atraumatic Neurologic: PERRL, EOMI, accommodation nl, no face palsy, no dysarthria Psychiatric: A+Ox3, euthymic affect Genitourinary: + penis abnormality (marin) Results & Data Results & Data ([facility]) Vital Signs (Past 12 Hours) Vital Signs Temp Pulse Pulse Pulse Resp BP BP 03/17/20 08:05 37.5 C 148 H 20 03/17/20 06:23 145 H 117/72 03/17/20 05:40 148 H 122/65 03/17/20 02:59 36.9 C 125 H 20 03/17/20 00:00 36.7 C 108 H 18 102/73 BP Pulse Ox 03/17/20 08:05 117/57 L 93 03/17/20 06:23 03/17/20 05:40 03/17/20 02:59 92/59 L 96 03/17/20 00:00 97
--- NOTE | 2020-03-17 10:23 | Nephrology Progress Note ---
Date of Service March 17, 2020 Assessment & Plan (1) BRYAN (acute kidney injury): Patient with acute kidney injury due to combination of ATN from sepsis and obstructive uropathy. Baseline creatinine of 1.1. Creatinine peaked at 2.7. Creatinine is stable at 1.9. No signs of volume overload. -Monitor input output -Daily BMP -Avoid contrast unless lifesaving. -If discharged, he needs a BMP next week and renal follow up in 2 weeks (2) Acute urinary retention: Likely in setting of radiotherapy. Continue Marin catheter until urology follow-up possible outpatient. (3) Hypokalemia: Due to diarrhea. continue potassium to 40 mEq p.o. twice daily. Patient can be discharged on the same. (4) Anemia: Multifactorial etiology including anemia of malignancy and sepsis. Monitor and transfuse as needed. Iron saturation of 5.6%. We will give IV Venofer 200 mg daily for 5 days. No need for Epogen in setting of malignancy. If patient is ready for discharge, he cant continue iron as outpatient Admission and Anticipated Discharge Date Admission Date: March 06, 2020 Subjective Patient reports feeling about the same. His heart rate is high this morning. Metoprolol was increased. Has leg swelling. No SOB. Making urine in the marin Review of Systems Review of Systems: All systems reviewed & are unremarkable except as noted in HPI & below Physical Exam Physical Exam: General exam: Appears comfortable, no acute distress HEENT: Pupils are equal and reactive to light Neck: No JVD, neck is supple trachea is midline Respiratory system: Clear breath sounds bilaterally. Gastrointestinal: Abdomen is soft, non distended, non tender, bowel sounds are present CVS: Regular rate and rhythm. No murmurs, rubs or gallops Musculoskeletal: No joint or muscle tenderness Extremities: Non tender, 1+ edema, peripheral pulses are present Neuro: Oriented, no tremors, no focal neurological deficits Skin: No rashes Results & Data ([facility]) Vital Signs (Past 12 Hours) Vital Signs Temp Pulse Pulse Pulse Resp BP BP 03/17/20 08:05 37.5 C 148 H 20 03/17/20 06:23 145 H 117/72 03/17/20 05:40 148 H 122/65 03/17/20 02:59 36.9 C 125 H 20 03/17/20 00:00 36.7 C 108 H 18 102/73 BP Pulse Ox 03/17/20 08:05 117/57 L 93 03/17/20 06:23 03/17/20 05:40 03/17/20 02:59 92/59 L 96 03/17/20 00:00 97 Laboratory Results 03/16/20 07:12
[2020-03-17] MEDS ORDERED: ATROPINE SULFATE 1% OP SOLN 2 ML BTL SL PRN (16:45)
[2020-03-17] MEDS: TAMSULOSIN HCL 0.4 MG CAP PO SCH (21:13)
[2020-03-17] MEDS: cefTRIAXone SODIUM 2,000 MG in DEXTROSE 5% 50 ML IV SCH (21:13)
[2020-03-18] MEDS ORDERED: POLYETHYLENE (MIRALAX) 17 GM PACK PO PRN (07:29)
--- NOTE | 2020-03-18 08:13 | Hospitalist Progress Note ---
Date of Service March 18, 2020 Assessment & Plan (1) Septic shock: Severe sepsis: secondary to E coli Bacteremia, UTI Episodes of tremors/shivering -80-year-old male with history of colon cancer status post chemotherapy and radiation therapy, Presenting with generalized weakness and diarrhea times few weeks. He was initially admitted for sepsis secondary to E. coli bacteremia and UTI, with associated acute renal failure, onset atrial fibrillation in RVR (On presentation: BP 77/62, HR 153, afebrile, lactic acid 4.8) -The admission 03/06/2020 blood cultures and urine cultures with E.coli. Repeat blood culture on 03/10/2020 no growth -during this hospital stay, patient was on Doxycycline and then Cefepime IV for possible pneumonia--> per family, patient noted to have severe tremors after receiving cefepime IV and Doxycycline IV; requested to stop these antibiotics -previous hospitalist had noted that episodes of tremors and shivering continued even after antibiotic adjustment and that these symptoms may reflect tumor burden of multiple hepatic masses Ideally can be given naproxen but will avoid secondary to possible upper GI bleed or if patient resumes heparin -currently on ceftriaxone IV. estimated total antibiotic duration as 2 weeks, ac etaminophen prn COMFORT CARE MEASURES ONLY -03/17/2020 Patient's son Eder [phone] set up for patient to be ready for home with home hospice by 03/20/2020. In the interim, patient and and his family prefers comfort care measures. heart rate control medications are to be stopped and patient to be transferred off telemetry. they do not want further blood draws. they are okay with continuing antibiotics and flomax BRYAN (acute kidney injury) Urinary retention secondary to bladder outlet obstruction Possible hematuria -admission Creatinine 2.7 compared to baseline of 1.1 -Patient with acute kidney injury due to combination of ATN from sepsis and obstructive uropathy. -Marin placed in the ED, urologist consulted recommending to maintain Marin catheter, voiding trial as an outpatient -Marin catheter draining blood-tinged urine. continue marin, urine is yellow -IV fluids were given, Welfare Adviser following the patient while in hospital, creatinine plateau around 2, Lasix was also given on this admission to treat volume overload in the context of IV fluids in the in the setting of cardiomyopathy per Echo -Nephrology 03/15/2020: creatinine is improving at 1.9 today. No signs of volume overload. We will hold off on Lasix today. -03/16/2020; creatinine remains 1.9, as of 03/17/2020 is on comfort care measures and no further lab draws Volume Overload secondary to Cardiomyopathy in the Setting of Acute Renal Failure -as per previous cardiology consultation: "He had left ventricular dysfunction when he was ill in the ICU, his ejection fraction was 25 to 30%, however on repeat several days later his ejection fraction was low normal (50-55%, no regional wall motion abnormalities). I suspect his cardiomyopathy was due to stunning due to his illness. At some point we should repeat his echocardiogram but I do not think we need to treat him aggressively for his cardiomyopathy although adding beta blockade for its cardioprotective effect as well as rate control would be beneficial and he seems to tolerate it." -no further Lasix at this time, comfort care measures only Hypokalemia Hypomagnesemia -admission serum potassium 2.8 and had potassium and magnesium supplementation on this hospital stay and electrolyte deficiencies were corrected -as of 03/17/2020 is on comfort care measures and no further lab draws Atrial fibrillation with RVR: -On presentation, patient in atrial fibrillation with RVR with rates in the 150s -cardiology 03/15/2020 progress note "He presented with atrial fibrillation with a rapid heart rate, the duration is uncertain. Based on his description of taking his pulse oximetry and blood pressure 2 or 3 days prior to admission and recalling that it was normal it is of relatively recent onset. Intravenous diltiazem helped somewhat with rate control but his heart rate still remained somewhat fast. I started digoxin but he developed nausea which seems to be related to digoxin therefore that has been discontinued. I did switch his diltiazem to oral (240 mg daily), subsequently increased to 300 mg daily. His heart rate remained elevated. Over the weekend beta-blockade was added at 25 mg twice daily. His heart rate is still elevated. He is now off of anticoagulation due to a GI bleed, cardioversion does not seem to be a realistic option at this point. We need to continue with rate control. Currently he is on Diltiazem CD 300 mg daily, metoprolol tartrate 25 mg twice daily for rate control. His blood pressure has not been low for several days. I am going to go up on his metoprolol starting this morning." -03/16/2020: currently on diltiazem 300 mg daily and scheduled metoprolol as 50 mg TID for now -03/17/2020: was then on on diltiazem 300 mg daily and metoprolol is increased to 50 mg QID, however from 03/17/2020 afternoon, patient and family wished for comfort care measures and no cardiac rate control medications Anemia with iron deficiency Possible upper GI bleed, hematuria Epistaxis -admission Hgb 8.1 compared to 10.9 on 11/2019, subsequent downtrend on this hospital stay. 03/13/2020: FOBT positive, Heparin discontinued, Protonix drip started. Hemoglobin 6.8 on 03/14/2020 and 1 unit of PRBC given with Hgb 7.5 on 03/15/2020 -patient has been givenIV venofer by nephrology as inpatient -epistaxis occurred when patient was on heparin IV earlier on this admission; afrin spray applied to the right nostril , packed with small piece of gauze , epistaxis resolved -no current plans for endoscopy or flex sigmoidoscopy because patient deferred procedures and because of history of radiation proctitis -patient and his family members have no desire for systemic anticoagulation again, currently on comfort care measures Colon cancer with metastasis - Follows with Dr. Maryanne Nicole with [facility] hematology/oncology in [place] and [facility] -History of resection, chemo, radiation; also with pelvic mets and possible RLL -10/2019 received re-irradiation and Xelda at [facility] [place] [facility] - poorly tolerated -visit with Dr. Nicole 01/2020 patient declined further treatments -CT scan suggesting metastatic hepatic disease, thickening at rectum, lower sigmoid Clostridium difficile carrier Diarrhea -diarrhea likely from Radiation Therapy, diarrhea appears to be resolving -his C.difficile tests are gene positive but toxin negative (03/08/2020, 03/15/2020), he is on contact precautions while in the hospital Episode of delirium -Resolved DVT prophylaxis: SCD Disposition : COVID-19 test ordered on 03/15/2020 as a screening tool prior to hospital discharge. is negative for COVID. currently on comfort care. plan is for discharge on Friday03/20/2020 to home with home hospice when patient's son able to set up the logistical needs Admission and Anticipated Discharge Date Admission Date: March 06, 2020 Subjective Patient currently on comfort care measures. on exam his heart rates are tachycardic and irregular. he does not feel palpitations of chest pain. he denies subjective shortness of breath. he reports having good sleep overnight. denies other symptoms. he and his affirms the plans for discharge to home with home hospice for Friday03/20/2020 Review of Systems Review of Systems: All systems reviewed & are unremarkable except as noted in Subjective Physical Exam Constitutional: comfortable Eyes: PERRL, conjunctivae normal, anicteric sclerae EOM intact bilaterally ENMT: external ear and nose normal, oropharynx normal Neck: trachea midline, no thyromegaly normal visual inspection Respiratory: normal respiratory effort, lungs clear to auscultation Cardiovascular: Rate/Rhythm: + tachycardic and + irregularly irregular Gastrointestinal (Abdomen): normal bowel sounds, soft, nontender, no hepatosplenomegaly Musculoskeletal: Head/Neck/Chest: normocephalic and head atraumatic Neurologic: PERRL, EOMI, accommodation nl, no face palsy, no dysarthria Psychiatric: A+Ox3, euthymic affect Genitourinary: + penis abnormality (marin)
--- NOTE | 2020-03-18 09:15 | Nephrology Progress Note ---
Date of Service March 18, 2020 Assessment & Plan (1) BRYAN (acute kidney injury): Patient with acute kidney injury due to combination of ATN from sepsis and obstructive uropathy. Baseline creatinine of 1.1. Creatinine peaked at 2.7. Creatinine is stable at 1.9. No signs of volume overload. 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 Renal will sign off. Patient likely to be discharged home with hospice. I offered renal support if deemed necessary according to primary care physician and hospice team (2) Acute urinary retention: Likely in setting of radiotherapy. Continue Fernandes catheter even on discharge for comfort (3) Hypokalemia: Due to diarrhea. continue potassium to 40 mEq p.o. twice daily if patient chooses to continue (4) Anemia: Multifactorial etiology including anemia of malignancy and sepsis. Patient is status post Venofer infusions. Admission and Anticipated Discharge Date Admission Date: March 06, 2020 Subjective Patient seen with at the bedside. 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 No shortness of breath or pain he continues to have diarrhea. Review of Systems Review of Systems: All systems reviewed & are unremarkable except as noted in HPI & below Physical Exam Physical Exam: General exam: Appears comfortable, no acute distress HEENT: Pupils are equal and reactive to light Neck: No JVD, neck is supple trachea is midline Respiratory system: Clear breath sounds bilaterally. Gastrointestinal: Abdomen is soft, non distended, non tender, bowel sounds are present CVS: Regular rate and rhythm. No murmurs, rubs or gallops Musculoskeletal: No joint or muscle tenderness Extremities: Non tender, 1+ edema, peripheral pulses are present Neuro: Oriented, no tremors, no focal neurological deficits Skin: No rashes
[2020-03-18] MEDS: cefTRIAXone SODIUM 2,000 MG in DEXTROSE 5% 50 ML IV SCH (20:22)
[2020-03-18] MEDS: TAMSULOSIN HCL 0.4 MG CAP PO SCH (20:23)
--- NOTE | 2020-03-19 07:50 | Hospitalist Progress Note ---
Date of Service March 19, 2020 Assessment & Plan (1) Septic shock: Severe sepsis: secondary to E coli Bacteremia, UTI Episodes of tremors/shivering -80-year-old male with history of colon cancer status post chemotherapy and radiation therapy, Presenting with generalized weakness and diarrhea times few weeks. He was initially admitted for sepsis secondary to E. coli bacteremia and UTI, with associated acute renal failure, onset atrial fibrillation in RVR (On presentation: BP 77/62, HR 153, afebrile, lactic acid 4.8) -The admission 03/06/2020 blood cultures and urine cultures with E.coli. Repeat blood culture on 03/10/2020 no growth -during this hospital stay, patient was on Doxycycline and then Cefepime IV for possible pneumonia--> per family, patient noted to have severe tremors after receiving cefepime IV and Doxycycline IV; requested to stop these antibiotics -previous hospitalist had noted that episodes of tremors and shivering continued even after antibiotic adjustment and that these symptoms may reflect tumor burden of multiple hepatic masses Ideally can be given naproxen but will avoid secondary to possible upper GI bleed or if patient resumes heparin -currently on ceftriaxone IV while in the hospital -discharge medications sent electronically to [facility] on [facility] tamsulosin 0.4 mg daily for urination potassium twice a day as recommended by nephrology doctor last dose of antibiotics to be completed 03/24/2020 because this would be 14 days from the negative blood culture dating on 03/10/2020. Patient is expected to be discharged on 03/20/2020 and will have prescription of ciprofloxacin twice a day filled for 03/21/20 to 03/24/2020 scopolamine patches every 3 days for use as needed if excessive oral secretions/nausea or vomiting acetaminophen 325 mg every 6 hours as needed for pain or fever paper prescription made for morphine concentrate 100 mg/ 5 ml solution to be taken as 5 mg (0.25 ml) every 6 hours as needed for severe pain COMFORT CARE MEASURES ONLY -03/17/2020 Patient's son Eder [phone] set up for patient to be ready for home with home hospice by 03/20/2020. In the interim, patient and and his family prefers comfort care measures. heart rate control medications are to be stopped and patient to be transferred off telemetry. they do not want further blood draws. they are okay with continuing antibiotics and flomax BRYAN (acute kidney injury) Urinary retention secondary to bladder outlet obstruction Possible hematuria -admission Creatinine 2.7 compared to baseline of 1.1 -Patient with acute kidney injury due to combination of ATN from sepsis and obstructive uropathy. -Marin placed in the ED, urologist consulted recommending to maintain Marin catheter, voiding trial as an outpatient -Marin catheter draining blood-tinged urine. continue marin, urine is yellow -IV fluids were given, Fire Alarm Dispatcher following the patient while in hospital, creatinine plateau around 2, Lasix was also given on this admission to treat volume overload in the context of IV fluids in the in the setting of cardiomyopathy per Echo -Nephrology 03/15/2020: creatinine is improving at 1.9 today. No signs of volume overload. We will hold off on Lasix today. -03/16/2020; creatinine remains 1.9, as of 03/17/2020 is on comfort care measures and no further lab draws Volume Overload secondary to Cardiomyopathy in the Setting of Acute Renal Failure -as per previous cardiology consultation: "He had left ventricular dysfunction when he was ill in the ICU, his ejection fraction was 25 to 30%, however on repeat several days later his ejection fraction was low normal (50-55%, no regional wall motion abnormalities). I suspect his cardiomyopathy was due to stunning due to his illness. At some point we should repeat his echocardiogram but I do not think we need to treat him aggressively for his cardiomyopathy although adding beta blockade for its cardioprotective effect as well as rate control would be beneficial and he seems to tolerate it." -no further Lasix at this time, comfort care measures only Hypokalemia Hypomagnesemia -admission serum potassium 2.8 and had potassium and magnesium supplementation on this hospital stay and electrolyte deficiencies were corrected -as of 03/17/2020 is on comfort care measures and no further lab draws. potassium supplements of 40 meq twice a day as recommended by nephrology if patient chooses to take Atrial fibrillation with RVR: -On presentation, patient in atrial fibrillation with RVR with rates in the 150s -cardiology 03/15/2020 progress note "He presented with atrial fibrillation with a rapid heart rate, the duration is uncertain. Based on his description of taking his pulse oximetry and blood pressure 2 or 3 days prior to admission and recalling that it was normal it is of relatively recent onset. Intravenous diltiazem helped somewhat with rate control but his heart rate still remained somewhat fast. I started digoxin but he developed nausea which seems to be related to digoxin therefore that has been discontinued. I did switch his diltiazem to oral (240 mg daily), subsequently increased to 300 mg daily. His heart rate remained elevated. Over the weekend beta-blockade was added at 25 mg twice daily. His heart rate is still elevated. He is now off of anticoagulation due to a GI bleed, cardioversion does not seem to be a realistic option at this point. We need to continue with rate control. Currently he is on Diltiazem CD 300 mg daily, metoprolol tartrate 25 mg twice daily for rate control. His blood pressure has not been low for several days. I am going to go up on his metoprolol starting this morning." -03/16/2020: currently on diltiazem 300 mg daily and scheduled metoprolol as 50 mg TID for now -03/17/2020: was then on on diltiazem 300 mg daily and metoprolol is increased to 50 mg QID, however from 03/17/2020 afternoon, patient and family wished for comfort care measures and no cardiac rate control medications Anemia with iron deficiency Possible upper GI bleed, hematuria Epistaxis -admission Hgb 8.1 compared to 10.9 on 11/2019, subsequent downtrend on this hospital stay. 03/13/2020: FOBT positive, Heparin discontinued, Protonix drip started. Hemoglobin 6.8 on 03/14/2020 and 1 unit of PRBC given with Hgb 7.5 on 03/15/2020 -patient has been givenIV venofer by nephrology as inpatient -epistaxis occurred when patient was on heparin IV earlier on this admission; afrin spray applied to the right nostril , packed with small piece of gauze , epistaxis resolved -no current plans for endoscopy or flex sigmoidoscopy because patient deferred procedures and because of history of radiation proctitis -patient and his family members have no desire for systemic anticoagulation aga in, currently on comfort care measures Colon cancer with metastasis - Follows with Dr. Maryanne Nicole with [facility] hematology/oncology in [place] [facility] -History of resection, chemo, radiation; also with pelvic mets and possible RLL -10/2019 received re-irradiation and Xelda at [facility] - poorly tolerated -visit with Dr. Nicole 01/2020 patient declined further treatments -CT scan suggesting metastatic hepatic disease, thickening at rectum, lower sigmoid Clostridium difficile carrier Diarrhea -diarrhea likely from Radiation Therapy, diarrhea appears to be resolving -his C.difficile tests are gene positive but toxin negative (03/08/2020, 03/15/2020), he is on contact precautions while in the hospital Episode of delirium -Resolved DVT prophylaxis: SCD Disposition : COVID-19 test ordered on 03/15/2020 as a screening tool prior to hospital discharge. is negative for COVID. currently on comfort care. plan is for discharge on Friday03/20/2020 to home with home hospice when patient's son able to set up the logistical needs Admission and Anticipated Discharge Date Admission Date: March 06, 2020 Subjective Patient reports that because of the night time dose of ceftriaxone, he attributes this medication administration to poor sleep all night. He is seen this AM by medical doctor. Patient agrees to have the IV ceftriaxone earlier on 03/19/2020 to avoid any interaction with sleep. His is requesting that since there are plans for discharge to home hospice by Friday03/20/2020 that medical doctor start sending the discharge medications to pharmacy. patient not in acute distress. remains tachycardic on my exam. he does not appear to be in respiratory distress but is using high supplementary nasal cannula oxygen Review of Systems Review of Systems: All systems reviewed & are unremarkable except as noted in Subjective Physical Exam Constitutional: comfortable Eyes: PERRL, conjunctivae normal, anicteric sclerae EOM intact bilaterally ENMT: external ear and nose normal, oropharynx normal Neck: trachea midline, no thyromegaly normal visual inspection Respiratory: normal respiratory effort, lungs clear to auscultation Cardiovascular: Rate/Rhythm: + tachycardic and + irregularly irregular Gastrointestinal (Abdomen): normal bowel sounds, soft, nontender, no hepatosplenomegaly Musculoskeletal: Head/Neck/Chest: normocephalic and head atraumatic Neurologic: PERRL, EOMI, accommodation nl, no face palsy, no dysarthria Psychiatric: A+Ox3, euthymic affect Genitourinary: + penis abnormality (marin)
[2020-03-19] MEDS ORDERED: MoRPHine SULFATE 5 MG/0.25 ML UDP PO PRN (07:53)
[2020-03-19] MEDS: POTASSIUM CHLORIDE 20 MEQ TABCR PO SCH ×2 (09:21→20:56)
[2020-03-19] MEDS: GABAPENTIN 100 MG CAP PO SCH ×2 (09:21→20:56)
[2020-03-19] MEDS ORDERED: cefTRIAXone SODIUM 2,000 MG in DEXTROSE 5% 50 ML IV SCH (16:00)
[2020-03-19] MEDS: TAMSULOSIN HCL 0.4 MG CAP PO SCH (20:56)
[2020-03-20] MEDS: POTASSIUM CHLORIDE 20 MEQ TABCR PO SCH (08:03)
--- NOTE | 2020-03-20 08:03 | Discharge Summary ---
Date of Service March 20, 2020 Admission HPI Per Admitting Provider 80-year-old male with PMH colon cancer, HTN, and other problems to below who presents the ED for evaluation of generalized weakness. Patient with history of recurrent colon cancer, follows with Dr. Maryanne Nicole with [facility] oncology in [place] and also [facility]. A few months ago, patient received Xeloda and reirradiation at [facility]. Patient reports a steady decline in his overall health over the past several weeks. He reports progressive generalized weakness to the point where he was unable to get out of bed this morning. He has had a 50 pound weight loss in the past 4 months. Patient reports appetite is poor. Reports chronic issues with ongoing diarrhea and bowel incontinence. This morning, patient had episode of chills and rigors. He did not take his temperature. Patient denies chest pain, palpitations, or shortness of breath. No cough or sputum production. Denies abdominal pain, nausea, vomiting. No lightheadedness, dizziness, diaphoresis, syncopal events. Patient denies any urinary symptoms. Upon arrival to the ED, patient was found to be hypotensive and in atrial fibrillation with RVR. Labs show WBC 21K, K+ 2.5, creatinine 2.7, lactic acid 4.8. Patient was found to have urinary retention and Marin catheter was placed draining [address] ABD/pelvis shows Multiple hepatic masses suspicious for metastatic disease, Moderate bilateral hydronephrosis and hydroureter, Abnormal soft tissue at the level of the lower sigmoid/rectum with perirectal soft tissue nodules. The findings are suspicious for neoplasm. Patient was given 3 L LR, IV cefepime, IV Flagyl, IV magnesium, IV potassium. Principal Diagnosis COMFORT CARE MEASURES ONLY Severe sepsis with septic shock secondary to E. coli Bacteremia, Urinary Tract Infection BRYAN (acute kidney injury), Urinary retention secondary to bladder outlet obstruction Hypokalemia Atrial fibrillation with RVR Colon cancer with metastasis Diarrhea Clostridium difficile carrier Discharge Exam Constitutional comfortable Eyes PERRL, conjunctivae normal, anicteric sclerae EOM intact bilaterally ENMT external ear and nose normal, oropharynx normal Neck trachea midline, no thyromegaly normal visual inspection Respiratory normal respiratory effort, lungs clear to auscultation Cardiovascular Rate/Rhythm: + tachycardic and + irregularly irregular Gastrointestinal (Abdomen) normal bowel sounds, soft, nontender, no hepatosplenomegaly Musculoskeletal Head/Neck/Chest: normocephalic and head atraumatic Neurologic PERRL, EOMI, accommodation nl, no face palsy, no dysarthria Psychiatric A+Ox3, euthymic affect Genitourinary + penis abnormality (marin) Discharge Data Allergies Allergy/AdvReac Type Severity Reaction Status Date / Time ragweed pollen Allergy Intermediate SNEEZING Unverified 03/06/20 14:45 plum Allergy Mild VERTIGO Verified 03/06/20 14:45 (RED PLUMS) amoxicillin Allergy Unknown HEADACHES, Unverified 03/06/20 14:45 FEELS LIGHT HEADED Nitrate Analogues Allergy Verified 03/07/20 09:04 vancomycin AdvReac Intermediate severe Verified 03/06/20 21:29 lower extremity edema epinephrine AdvReac Unknown "DROPS BP Verified 03/06/20 14:45 LIKE A ROCK" Food Additives Allergy Unknown Nitrites - Uncoded 03/06/20 14:45 cardiac arrhythmias Pesticides Allergy Unknown RASH Uncoded 03/06/20 14:45 Consultations 03/06/20 16:00 ED Decision to Admit Stat 03/06/20 19:16 Consult Case Management - Discharge Planning Routine Consult Orthotic Aide Routine 03/07/20 12:53 Consult Cardiology Routine 03/07/20 18:52 Consult Gastroenterology Routine 03/07/20 19:08 Consult Urology Routine 03/09/20 09:52 Consult Nephrology Routine 03/14/20 08:18 Consult Gastroenterology Routine 03/17/20 16:27 Consult Case Management - Discharge Planning Routine Consult Palliative Care Routine Ordered Studies 03/06/20 14:09 CT head/brain wo con Stat 03/06/20 14:44 CT abd pelvis wo con Stat 03/09/20 05:54 CT abd pelvis wo con Urgent Hospital Course (1) Septic shock: Severe sepsis: secondary to E coli Bacteremia, UTI Episodes of tremors/shivering -80-year-old male with history of colon cancer status post chemotherapy and radiation therapy, Presenting with generalized weakness and diarrhea times few weeks. He was initially admitted for sepsis secondary to E. coli bacteremia and UTI, with associated acute renal failure, onset atrial fibrillation in RVR (On presentation: BP 77/62, HR 153, afebrile, lactic acid 4.8) -The admission 03/06/2020 blood cultures and urine cultures with E.coli. Repeat blood culture on 03/10/2020 no growth -during this hospital stay, patient was on Doxycycline and then Cefepime IV for possible pneumonia--> per family, patient noted to have severe tremors after receiving cefepime IV and Doxycycline IV; requested to stop these antibiotics -previous hospitalist had noted that episodes of tremors and shivering continued even after antibiotic adjustment and that these symptoms may reflect tumor burden of multiple hepatic masses Ideally can be given naproxen but will avoid secondary to possible upper GI bleed or if patient resumes heparin -currently on ceftriaxone IV while in the hospital -discharge medications sent electronically to [facility] on [facility] tamsulosin 0.4 mg daily for urination potassium twice a day as recommended by nephrology doctor last dose of antibiotics to be completed 03/24/2020 because this would be 14 days from the negative blood culture dating on 03/10/2020. Patient is expected to be discharged on 03/20/2020 and will have prescription of ciprofloxacin twice a day filled for 03/21/20 to 03/24/2020 scopolamine patches every 3 days for use as needed if excessive oral secretions/nausea or vomiting acetaminophen 325 mg every 6 hours as needed for pain or fever paper prescription made for morphine concentrate 100 mg/ 5 ml solution to be taken as 5 mg (0.25 ml) every 6 hours as needed for severe pain COMFORT CARE MEASURES ONLY -03/17/2020 Patient's son Eder [phone] set up for patient to be ready for home with home hospice by 03/20/2020. In the interim, patient and and his family prefers comfort care measures. heart rate control medications are to be stopped and patient to be transferred off telemetry. they do not want further blood draws. they are okay with continuing antibiotics and flomax BRYAN (acute kidney injury) Urinary retention secondary to bladder outlet obstruction Possible hematuria -admission Creatinine 2.7 compared to baseline of 1.1 -Patient with acute kidney injury due to combination of ATN from sepsis and obstructive uropathy. -Marin placed in the ED, urologist consulted recommending to maintain Marin catheter, voiding trial as an outpatient -Marin catheter draining blood-tinged urine. continue marin, urine is yellow -IV fluids were given, Production Tech following the patient while in hospital, creatinine plateau around 2, Lasix was also given on this admission to treat volume overload in the context of IV fluids in the in the setting of cardiomyopathy per Echo -Nephrology 03/15/2020: creatinine is improving at 1.9 today. No signs of volume overload. We will hold off on Lasix today. -03/16/2020; creatinine remains 1.9, as of 03/17/2020 is on comfort care measures and no further lab draws Volume Overload secondary to Cardiomyopathy in the Setting of Acute Renal Failure -as per previous cardiology consultation: "He had left ventricular dysfunction when he was ill in the ICU, his ejection fraction was 25 to 30%, however on repeat several days later his ejection fraction was low normal (50-55%, no regional wall motion abnormalities). I suspect his cardiomyopathy was due to stunning due to his illness. At some point we should repeat his echocardiogram but I do not think we need to treat him aggressively for his cardiomyopathy although adding beta blockade for its cardioprotective effect as well as rate control would be beneficial and he seems to tolerate it." -no further Lasix at this time, comfort care measures only Hypokalemia Hypomagnesemia -admission serum potassium 2.8 and had potassium and magnesium supplementation on this hospital stay and electrolyte deficiencies were corrected -as of 03/17/2020 is on comfort care measures and no further lab draws. potassium supplements of 40 meq twice a day as recommended by nephrology if patient chooses to take Atrial fibrillation with RVR: -On presentation, patient in atrial fibrillation with RVR with rates in the 150s -cardiology 03/15/2020 progress note "He presented with atrial fibrillation with a rapid heart rate, the duration is uncertain. Based on his description of taking his pulse oximetry and blood pressure 2 or 3 days prior to admission and recalling that it was normal it is of relatively recent onset. Intravenous diltiazem helped somewhat with rate control but his heart rate still remained somewhat fast. I started digoxin but he developed nausea which seems to be related to digoxin therefore that has been discontinued. I did switch his diltiazem to oral (240 mg daily), subsequently increased to 300 mg daily. His heart rate remained elevated. Over the weekend beta-blockade was added at 25 mg twice daily. His heart rate is still elevated. He is now off of anticoagulation due to a GI bleed, cardioversion does not seem to be a realistic option at this point. We need to continue with rate control. Currently he is on Diltiazem CD 300 mg daily, metoprolol tartrate 25 mg twice daily for rate control. His blood pressure has not been low for several days. I am going to go up on his metoprolol starting this morning." -03/16/2020: currently on diltiazem 300 mg daily and scheduled metoprolol as 50 mg TID for now -03/17/2020: was then on on diltiazem 300 mg daily and metoprolol is increased to 50 mg QID, however from 03/17/2020 afternoon, patient and family wished for comfort care measures and no cardiac rate control medications Anemia with iron deficiency Possible upper GI bleed, hematuria Epistaxis -admission Hgb 8.1 compared to 10.9 on 11/2019, subsequent downtrend on this hospital stay. 03/13/2020: FOBT positive, Heparin discontinued, Protonix drip started. Hemoglobin 6.8 on 03/14/2020 and 1 unit of PRBC given with Hgb 7.5 on 03/15/2020 -patient has been givenIV venofer by nephrology as inpatient -epistaxis occurred when patient was on heparin IV earlier on this admission; afrin spray applied to the right nostril , packed with small piece of gauze , epistaxis resolved -no current plans for endoscopy or flex sigmoidoscopy because patient deferred procedures and because of history of radiation proctitis -patient and his family members have no desire for systemic anticoagulation again, currently on comfort care measures Colon cancer with metastasis - Follows with Dr. Maryanne Nicole with [facility] hematology/oncology in [place] and [facility] -History of resection, chemo, radiation; also with pelvic mets and possible RLL -10/2019 [place] [facility] [place] poorly tolerated -visit with Dr. Nicole 01/2020 patient declined further treatments -CT scan suggesting metastatic hepatic disease, thickening at rectum, lower sigmoid Clostridium difficile carrier Diarrhea -diarrhea likely from Radiation Therapy, diarrhea appears to be resolving -his C.difficile tests are gene positive but toxin negative (03/08/2020, 03/15/2020), he is on contact precautions while in the hospital Episode of delirium -Resolved DVT prophylaxis: SCD Disposition : COVID-19 test ordered on 03/15/2020 as a screening tool prior to hospital discharge. is negative for COVID. currently on comfort care. plan is for discharge on Friday03/20/2020 to home with home hospice Total Time Total Time Spent Total Time Spent (In Minutes): 40 minutes Total Time Includes: Examination of the Patient, Discharge Planning, Medication Reconciliation and Communication With Other Providers Discharge Plan Discharge Items Patient Disposition: Hospice - Home Reason For Visit: SEPSIS, UTI Discharge Diagnosis: COMFORT CARE MEASURES ONLY Severe sepsis with septic shock secondary to E. coli Bacteremia, Urinary Tract Infection BRYAN (acute kidney injury), Urinary retention secondary to bladder outlet obstruction Hypokalemia Atrial fibrillation with RVR Colon cancer with metastasis Diarrhea Clostridium difficile carrier Condition on Discharge: Critical Activity: Per Instructions section Non-emergency contact: Primary Care Provider Call non-emergency contact if: you have any medication questions Follow-up/Referrals: Cristo Medellin MD [Primary Care Provider] - Diet: Regular Diet Comment: slippery diet Addtl Attending Provider Instructions: discharge to home with home hospice discharge medications sent electronically to [facility] on [facility] tamsulosin 0.4 mg daily for urination potassium twice a day as recommended by nephrology doctor last dose of antibiotics to be completed 03/24/2020 because this would be 14 days from the negative blood culture dating on 03/10/2020. Patient is expected to be discharged on 03/20/2020 and will have prescription of ciprofloxacin twice a day filled for 03/21/20 to 03/24/2020 scopolamine patches every 3 days for use as needed if excessive oral secretions/nausea or vomiting acetaminophen 325 mg every 6 hours as needed for pain or fever paper prescription made for morphine concentrate 100 mg/ 5 ml solution to be taken as 5 mg (0.25 ml) every 6 hours as needed for severe pain gabapentin 100 mg twice a day for neuropathy Pending Studies at Discharge: No Stand-Alone Forms: My [facility] Medications and DC Order Prescriptions: New acetaminophen 325 mg Tablet 325 mg PO Q6H PRN (Reason: fever or pain) 10 Days Qty: 40 RF: 0 tamsulosin 0.4 mg Capsule 0.4 mg PO HS 30 Days Qty: 30 RF: 0 potassium chloride [Klor-Con M20] 20 mEq Tablet,Er Particles/Crystals 40 meq PO BID 10 Days Qty: 40 RF: 0 ciprofloxacin HCl 500 mg tablet 500 mg PO BID 4 Days Qty: 8 RF: 0 scopolamine base 1 mg over 3 days patch 3 day 1 patch TD Q3D PRN (Reason: nausea and vomiting) 72 Days Qty: 24 RF: 0 morphine concentrate 100 mg/5 mL (20 mg/mL) Solution 5 mg PO Q6H PRN (Reason: severe pain) 4 Days Qty: 15 RF: 0 gabapentin 100 mg Capsule 100 mg PO BID 30 Days Qty: 60 RF: 0 Discontinued potassium chloride [Klor-Con M20] 20 mEq tablet,ER particles/crystals 20 meq PO BID RF: 0 hydrochlorothiazide 25 mg tablet 25 mg PO DAILY RF: 0 calcium carbonate 600 mg calcium (1,500 mg) Tablet 600 mg PO BID RF: 0 Discharge Orders: Discharge Order (Routine); Ordered 03/20/20 Ordered By: Jose Bradley Admission Data Admit Date/Time: 03/06/20 17:13 Attending Provider: Jose Bradley Admit Provider: Eder Harmon Primary Care Provider: Cristo Medellin Other Providers: [facility] ; [facility] ; Dariela Taveras Ayesha H. ; Eder Harmon ; Honorio Sky ; Jarod Dooley ; Soham Barbour ; Kyrie Castro ; Hank Kulkarni ; Stephen López ; Dwight Hernández Jr ; Michael Fagan ; Annemarie Jennings ; Laura Anders ; Chadwick Cason ; Chadwick White ; Steve Posadas ; Wero Amaro ; Bessy Hui ; Jaz Barone ; Royce Mason ; Nico Stevens ; Shyla Ybarra ; Destiney Ann ; Sandeep Andrade ; Kady Burk ; Getachew Chatman ; Eliseo Keating ; Ana Ayala ; Kyrie Kerr ; Luís Ramírez ; Wendy Blood ; Skye Kaye ; Misty Mason ; Karen Ricks ; Xiomy Worthington ; Stephen Marcelo ; Bogdan Rocha ; John García I. ; Chadwick Barrientos ; Luisa Lennon ; Sushila Poole ; Carlo Cardenas ; Laura Cohen ; Katie Gomez ; Tate Loyola ; Purvi Garcias ; Aubrey Helms ; Elysia Rodriguez
[2020-03-20] MEDS: GABAPENTIN 100 MG CAP PO SCH (08:07)
[2020-03-20] MEDS ORDERED: cefTRIAXone SODIUM 2,000 MG in DEXTROSE 5% 50 ML IV SCH (12:00)
--- NOTE | 2020-03-20 13:21 | Palliative Care Consultation ---
Date of Consultation March 20, 2020 Assessment & Plan (1) Goals of care, counseling/discussion: Patient is an 80-year-old male with a past medical history significant for metastatic colon cancer-status post chemo/XRT, GI bleed, A. fib with RVR, prediabetes, hypertension, and urinary retention who presented to [facility] on 03/06 with chills and shivers, poor p.o. intake. Patient required ICU admission for urosepsis. He was found to have urinary retention with an output of 2 L after Fernandes placement. Patient has a history of C. difficile-has had chronic loose stools. Patient reports he was doing well until he had his last radiation treatment at [facility] to an area of recurrence that caused prostate inflammation and urinary retention. Patient's urine and blood cultures were positive for E. coli-he was treated with IV antibiotics. To patient's GI bleed-he is now off AC which puts him at high risk for stroke with his A. fib with RVR. Patient was placed on several medications to control his heart rate-no effect, patient tolerating his current heart rate without any symptoms or discomfort. Due to poor p.o. intake patient had BRYAN-creatinine 2.7 on admission, now 1.9. Patient has now transition to comfort care-plan is to return home with [facility] hospice. Patient has been to his second , Corrine, for 20 years-they have been together 37 years. Patient has 2 sons and 2 daughters-one daughter is , one son lives nearby and assists with care. 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 -Goals of care-patient's current CODE STATUS is DNR/DNI, goal is to return home on comfort care -Metastatic colon cancer-no further chemo as per patient's wishes, no further XRT -A. fib with RVR-off AC due to bleeding presumed to be GI and/or hematuria, rate unable to be controlled status post trial of multiple medications-patient a symptomatic -Urinary retention-Fernandes in place, continue Flomax -Urosepsis -patient receiving IV Rocephin-will be discharged home on Cipro through 03/24 which will complete a 14-day course after the first set of negative blood cultures. -PPS 40%, ECOG 3 (2) Colon cancer: (3) Atrial fibrillation with RVR: (4) Acute urinary retention: (5) Severe sepsis: History of Present Illness Reason for Consultation: Address goals of care Requesting Physician: Dr. Jose Bradley Attending Physician: Jose Bradley MD History of Present Illness Patient is an 80-year-old male with a past medical history significant for metastatic colon cancer-status post chemo/XRT, GI bleed, A. fib with RVR, prediabetes, hypertension, and urinary retention who presented to [facility] on 03/06 with chills and shivers, poor p.o. intake. Patient required ICU admission for urosepsis. He was found to have urinary retention with an output of 2 L after Fernandes placement. Patient has a history of C. difficile-has had chronic loose stools. Patient reports he was doing well until he had his last radiation treatment at [facility] to an area of recurrence that caused prostate inflammation and urinary retention. Patient's urine and blood cultures were positive for E. coli-he was treated with IV antibiotics. To patient's GI bleed-he is now off AC which puts him at high risk for stroke with his A. fib with RVR. Patient was placed on several medications to control his heart rate-no effect, patient tolerating his current heart rate without any symptoms or discomfort. Due to poor p.o. intake patient had BRYAN-creatinine 2.7 on admission, now 1.9. Patient has now transition to comfort care-plan is to return home with [facility] hospice. Patient has been to his second , Corrine, for 20 years-they have been together 37 years. Patient has 2 sons and 2 daughters-one daughter is , one son lives nearby and assists with care. 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 -Goals of care-patient's current CODE STATUS is DNR/DNI, goal is to return home on comfort care -Metastatic colon cancer-no further chemo as per patient's wishes, no further XRT -A. fib with RVR-off AC due to bleeding presumed to be GI and/or hematuria, rate unable to be controlled status post trial of multiple medications-patient asymptomatic -Urinary retention-Fernandes in place, continue Flomax -Urosepsis -patient receiving IV Rocephin-will be discharged home on Cipro through 03/24 which will complete a 14-day course after the first set of negative blood cultures. -PPS 40%, ECOG 3 Allergies Allergy/AdvReac Type Severity Reaction Status Date / Time ragweed pollen Allergy Intermediate SNEEZING Unverified 03/06/20 14:45 plum Allergy Mild VERTIGO Verified 03/06/20 14:45 (RED PLUMS) amoxicillin Allergy Unknown HEADACHES, Unverified 03/06/20 14:45 FEELS LIGHT HEADED Nitrate Analogues Allergy Verified 03/07/20 09:04 vancomycin AdvReac Intermediate severe Verified 03/06/20 21:29 lower extremity edema epinephrine AdvReac Unknown "DROPS BP Verified 03/06/20 14:45 LIKE A ROCK" Food Additives Allergy Unknown Nitrites - Uncoded 03/06/20 14:45 cardiac arrhythmias Pesticides Allergy Unknown RASH Uncoded 03/06/20 14:45 Home Medications Home Medications Medication Instructions Recorded Confirmed Type acetaminophen 325 mg PO Q6H PRN 10 Days #40 tab 03/19/20 Rx ciprofloxacin HCl 500 mg PO BID 4 Days #8 tab 03/19/20 Rx gabapentin 100 mg PO BID 30 Days #60 cap 03/19/20 Rx morphine concentrate 5 mg PO Q6H PRN 4 Days #15 ml 03/19/20 Rx potassium chloride [Klor-Con M20] 40 meq PO BID 10 Days #40 tab 03/19/20 Rx scopolamine base 1 patch TD Q3D PRN 72 Days #24 ea 03/19/20 Rx tamsulosin 0.4 mg PO HS 30 Days #30 cap 03/19/20 Rx Patient History Medical History Colon cancer HTN (hypertension) Radiation proctitis Surgical History History of appendectomy (Resolved) History of colon resection History of tonsillectomy and adenoidectomy Ileostomy status history of ileostomy s/p reversal Family History Other Family history non-contributory Social History Smoking Status: Never smoker Hx Alcohol Use: No Hx Substance Use: No Preferred Language: Iraqi Communication Ability: Effective Physician Industrial Required: No Beliefs That Will Affect Care: None marital status: Current Living Situation: Spouse How many Children do You have: 3 Feels Safe at Home: Yes Review of Systems Review of Systems: Patient denies fever, chills, chest pain, shortness of breath, or abdominal pain. No nausea or vomiting. Patient denies any pain. Positive for weight loss, weakness, poor appetite with poor p.o. intake, frequent loose stools Physical Exam Physical Exam: PE: Patient awake and alert, sitting up in bed, no acute distress HEENT: EOMI, hearing within normal limits Respirations: Clear breath sounds bilaterally, unlabored CV: Irregular, tachycardic, good lower extremity perfusion Abdomen: Soft, nontender to palpation Extremities: Full range of motion, weakness Neuro: Alert and oriented Results & Data Vital Signs (Past 12 Hours) Vital Signs Temp Pulse Pulse Resp BP BP Pulse Ox 03/20/20 12:30 97.9 F 137 H 108 H 14 106/66 92/61 L 95 PG Care Time/CCT Total # of Minutes Spent Total Time Spent with Patient: Total time spent 55 minutes with greater than 50% of the time spent at bedside discussing patient's goals of care and assessing current symptom control Coding Level of Care Code 65131 Inpt Consult Level 2 Diagnoses Goals of care, counseling/discussion Z71.89 Colon cancer C18.9 Atrial fibrillation with RVR I48.91 Acute urinary retention R33.8 Severe sepsis A41.9; R65.20 Time Spent (min) 55
== END 2020-03-20 15:27 | disposition hospice, home (50) | DRG 871 ==
LOC: ED 12:57 → SUATTDRO 17:13 → 1E 17:13 → 2S 03-08 17:20 → 2W 03-17 17:43